=== PATIENT | male | born 1940 | race Caucasian/White ===

== ENCOUNTER 2019-08-24 20:07 | Inpatient (IN) | payer MEDICARE, OTHER, SELFPAY ==
[2019-08-24 20:14] VITALS: BP 104/62; PULSE 104; RESP 20; TEMP 36.8; O2SAT 93; BMI 31.2
--- NOTE | 2019-08-24 20:14 | CTR_ITS ---
PROCEDURE INFORMATION: Exam: CT Head Without Contrast Exam date and time: 08/24/2019 8:19 PM Age: 78 years old Clinical indication: Altered mental status/memory loss; Confusion or disorientation; Patient HX: PT came in new onset AMS TECHNIQUE: Imaging protocol: Computed tomography of the head without contrast. Radiation optimization: All CT scans at this facility use at least one of these dose optimization techniques: automated exposure control; mA and/or kV adjustment per patient size (includes targeted exams where dose is matched to clinical indication); or iterative reconstruction. COMPARISON: CT head wo con* [id number] 02/24/2019 3:18 PM FINDINGS: There is patient motion and streak artifact which degrades image quality. There is mild generalized atrophy. There are mild areas of decreased attenuation in the periventricular white matter which is nonspecific but likely relates to small vessel ischemic change. There is an old right periventricular lacunar infarct. There is an old white matter infarct in the right frontal lobe. There is no evidence for acute infarct. There is no evidence for mass. There is no hemorrhage. There are no extra-axial fluid collections. There is no midline shift. The skull is intact. The visualized paranasal sinuses are well aerated. There is atherosclerotic change of the cavernous carotid arteries. CT/CT head wo con* [id number] IMPRESSION: No evidence for acute infarct, mass or hemorrhage. Radiation Dose CTDIVOL = (mGy): DLP = 736.4 (mGy-cm)
--- NOTE | 2019-08-24 20:14 | XR_ITS ---
WS: [id number] XR chest 1V portable [id number] REASON FOR EXAM: sob FINDINGS: Interposition of the colon between the diaphragm and liver on the right. The heart is not grossly enlarged there is evidence of a Mediport extends from the left side in good position. There is arteriosclerotic changes in the arch of the aorta. There is no pneumonia, pleural effusion, pneumothorax, or mass effect. XR/XR chest 1V portable [id number] IMPRESSION: Arteriosclerotic changes of the arch of the aorta Interposition of the colon between the diaphragm and liver. There is noted marked degenerate changes of the right shoulder.
--- NOTE | 2019-08-24 20:14 | ECG_ITS ---
Measurements Intervals [place] Rate: 105 P: OK: 0 QRS: -26 QRSD: 113 T: 57 QT: 372 QTc: 492 ATRIAL FLUTTER/TACHYCARDIA WITH RAPID VENTRICULAR RESPONSE INFERIOR MYOCARDIAL INFARCTION , PROBABLY OLD [40+ ms Q WAVE AND/OR ST/T ABNORMALITY IN II/aVF] Compared to ECG 02/24/2019 15:48:29 Myocardial infarct finding now present Sinus tachycardia no longer present First degree AV block no longer present Intraventricular conduction delay no longer present T-wave abnormality no longer present Electronically Signed On 08-25-2019 19:36:32 CDT by Yamilex Jurado M.D. [email or web address]
--- NOTE | 2019-08-24 20:21 | W.ED.AMS ---
HPI - Altered Mental Status General: Chief Complaint: Altered Mental Status Stated Complaint: AMS Time Seen by Provider: 08/24/19 20:08 Source: patient and EMS Mode of arrival: EMS Limitations: altered mental status History of Present Illness: HPI narrative: 78-year-old male brought in by EMS for altered mental status. Patient has a history of COPD per EMS when they row he was in distress and saturation was 75. He is currently on 5L. Patient given breathing treatment in route and has improved mentation. Patient will wake down he does tell me he has a history of COPD. Patient is lethargic. He denies any fever or headache. He states he has had a slight cough. MD complaint: altered mental status Onset (ago): hour(s) Timing confirmed by: family member Severity: moderate Associated symptoms: Deny depression Review of Systems Const: Denies: fever(s), chills, body aches or change in appetite Eyes: Denies: blurry vision or eye discomfort ENMT: Denies: throat pain or dental pain Card: Denies: chest pain Resp: Reports: productive cough GI: Denies: abdominal pain, nausea, vomiting or diarrhea : Denies: dysuria Musc: Denies: neck pain or back pain Skin/Breast: Denies: rash Neuro: Reports: confusion Psych: Denies: depression Nura/Lymph: Denies: easy bruising All/Imm: Denies: urticaria PFSH ED PFSH: Social History Smoking and tobacco status: former smoker Physical Exam Const: COMMON NORMALS: patient oriented x3 GENERAL APPEARANCE: in distress, lethargic and ill appearing ORIENTATION/CONSCIOUSNESS: Yes lethargic HENMT: COMMON NORMALS: normocephalic and atraumatic HEAD & SCALP: normocephalic and atraumatic Eye: COMMON NORMALS: Equal, round and reactive pupils present and EOMs intact bilaterally PUPIL: Yes Equal, round and reactive pupils present Neck/C-Spine: COMMON NORMALS: full ROM and supple Chest: COMMONS NORMALS: normal inspection of the chest and normal palpation of entire chest wall Resp: EFFORT & INSPECTION: Yes respiratory distress AUSCULTATION: wheezes Cardio: COMMON NORMALS: regular rate, regular rhythm and No murmurs present (Cardio) RATE: regular rate RHYTHM: regular rhythm GI: COMMON NORMALS: Normal to inspection, nondistended, normoactive bowel sounds present, Soft to palpation, non-tender and no masses PALPATION: Yes Soft to palpation Extremity: COMMON NORMALS: normal to inspection and full ROM Neuro: COMMON NORMALS: patient oriented x3, moves all extremities and no focal motor deficits SENSORIUM/ORIENTATION: Yes lethargic Psych: COMMON NORMALS: mental status grossly normal, Normal thought process present and cooperative THOUGHT PROCESS: Normal thought process present Skin: COMMON NORMALS: no rashes or lesions noted and no wounds GENERAL SKIN EXAM: no rashes or lesions noted Course Vital Signs: Vital signs: Vital Signs Temperature 98.2 F 08/24/19 20:14 Pulse Rate 103 H 08/24/19 20:55 Respiratory Rate 22 H 08/24/19 20:55 Blood Pressure 104/62 08/24/19 20:14 Pulse Oximetry 99 08/24/19 20:55 MDM - Altered Mental Status MDM Narrative: Medical decision making narrative: Patient presents here with altered status likely due to hypoxia. Patient has COPD exacerbation along with pneumonia. Patient after speaking to is on oxygen at home just as needed. Patient is currently requiring 5 L. Patient given breathing treatments along with steroids and antibiotics. I spoke to hospitalist will admit. Lab Data: Labs: Lab Results 08/24/19 08/24/19 08/24/19 Range/Units 20:53 20:53 20:53 WBC 10.3 H (4.0-10.0) 10^3/ uL RBC 3.50 L (4.1-5.3) 10^6/u L Hgb 11.1 L (11.7-16.6) g/dL Hct 35.5 L (42.0-52.0) % MCV 101.4 H (80-94) fL MCH 31.7 (28.0-34.0) pg MCHC 31.3 (30.0-36.0) g/dL RDW 13.2 (12.1-15.1) % Plt Count 193 (130-400) 10^3/c mm MPV 9.6 (7.4-10.4) fL Neut % (Auto) 59.8 % Lymph % (Auto) 24.1 % Wheeler % (Auto) 9.1 % Eos % (Auto) 5.8 % Baso % (Auto) 1.0 % Neut # (Auto) 6.2 (1.8-7.7) 10^3/u L Lymph # (Auto) 2.5 (0.8-4.8) 10^3/u L Wheeler # (Auto) 0.9 (0.2-0.9) 10^3/u L Eos # (Auto) 0.6 (0.0-0.8) 10^3/u L Baso # (Auto) 0.1 (0.0-0.1) 10^3/u L Nucleated RBC % (a uto) 0 % Nucleated RBCs # 0.0 /100WBC Specimen Type Sample Site ABG pH (7.35-7.45) ABG pCO2 (35-45) mmHg ABG pO2 (80.0-100.0) mmH g ABG HCO3 (22-26) mmol/L ABG Base Excess (-2.0-2.0) mmol/ L Liu Test Hematocrit (42-52) % Hgb O2 Saturation (95-100) % Carboxyhemoglobin (0.4-20.1) %THgb Methemoglobin (0.4-1.5) % Total Hemoglobin (14-18) g/dL O2 Delivery Device O2 Liters/Min % [employer] Associate ID Sodium 134 L (136-145) mmol/L Potassium 4.6 (3.5-5.1) mmol/L Chloride 100 (98-107) mmol/L Carbon Dioxide 27 (22-29) mmol/L Anion Gap 11.6 (5-19) BUN 21 (8-23) mg/dL Creatinine 1.0 (0.7-1.2) mg/dL Glucose 132 H (65-115) mg/dL Calculated Osmolal ity 276 L (285-295) mOsm/k g Calcium 8.7 (8.5-10.5) mg/dL Total Bilirubin 0.2 (0.15-1.2) mg/dL AST 12 (0-40) U/L ALT < 5 (0-41) U/L Alkaline Phosphata se 65 (40-130) IU/L Troponin T Baselin e 66 H (0-15) ng/mL NT-Pro-B Natriuret Pep 1369 H (0-450) pg/mL Total Protein 6.2 L (6.6-8.7) g/dL Albumin 3.7 (3.5-5.2) g/dL Globulin 2.5 (1.3-4.6) g/dL 08/24/19 Range/Units 20:55 WBC (4.0-10.0) 10^3/ uL RBC (4.1-5.3) 10^6/u L Hgb (11.7-16.6) g/dL Hct (42.0-52.0) % MCV (80-94) fL MCH (28.0-34.0) pg MCHC (30.0-36.0) g/dL RDW (12.1-15.1) % Plt Count (130-400) 10^3/c mm MPV (7.4-10.4) fL Neut % (Auto) % Lymph % (Auto) % Wheeler % (Auto) % Eos % (Auto) % Baso % (Auto) % Neut # (Auto) (1.8-7.7) 10^3/u L Lymph # (Auto) (0.8-4.8) 10^3/u L Wheeler # (Auto) (0.2-0.9) 10^3/u L Eos # (Auto) (0.0-0.8) 10^3/u L Baso # (Auto) (0.0-0.1) 10^3/u L Nucleated RBC % (a uto) % Nucleated RBCs # /100WBC Specimen Type Arterial Sample Site Radial, right ABG pH 7.36 (7.35-7.45) ABG pCO2 47.1 H (35-45) mmHg ABG pO2 105.0 H (80.0-100.0) mmH g ABG HCO3 26.8 H (22-26) mmol/L ABG Base Excess 1.0 (-2.0-2.0) mmol/ L Liu Test Pos Hematocrit 35.7 L (42-52) % Hgb O2 Saturation 96.5 (95-100) % Carboxyhemoglobin 1.5 (0.4-20.1) %THgb Methemoglobin 0.7 (0.4-1.5) % Total Hemoglobin 11.7 L (14-18) g/dL O2 Delivery Device Nc O2 Liters/Min 5.0 % [employer] Associate ID [email or web address] Sodium (136-145) mmol/L Potassium (3.5-5.1) mmol/L Chloride (98-107) mmol/L Carbon Dioxide (22-29) mmol/L Anion Gap (5-19) BUN (8-23) mg/dL Creatinine (0.7-1.2) mg/dL Glucose (65-115) mg/dL Calculated Osmolal ity (285-295) mOsm/k g Calcium (8.5-10.5) mg/dL Total Bilirubin (0.15-1.2) mg/dL AST (0-40) U/L ALT (0-41) U/L Alkaline Phosphata se (40-130) IU/L Troponin T Baselin e (0-15) ng/mL NT-Pro-B Natriuret Pep (0-450) pg/mL Total Protein (6.6-8.7) g/dL Albumin (3.5-5.2) g/dL Globulin (1.3-4.6) g/dL Imaging Data^: CT Head: Attestation: I personally reviewed and interpreted this imaging study as follows: My impression: [address] [address] [address] Scan Report Signed Patient: Salas Oneal Unit #: [id number] : 1940 Age/Sex: 78 / M ADM Date: 08/24/19 Loc: ER Room/Bed: Attending Dr: Ordering Provider/Ordering MD: Sarwat Snowden MD Date of Service: 08/24/19 Procedure(s): CT head wo con* [id number] Accession Number(s): [id number] Report Number: [id number] PROCEDURE INFORMATION: Exam: CT Head Without Contrast Exam date and time: 08/24/2019 8:19 PM Age: 78 years old Clinical indication: Altered mental status/memory loss; Confusion or disorientation; Patient HX: PT came in new onset AMS TECHNIQUE: Imaging protocol: Computed tomography of the head without contrast. Radiation optimization: All CT scans at this facility use at least one of these dose optimization techniques: automated exposure control; mA and/or kV adjustment per patient size (includes targeted exams where dose is matched to clinical indication); or iterative reconstruction. COMPARISON: CT head wo con* [id number] 02/24/2019 3:18 PM FINDINGS: There is patient motion and streak artifact which degrades image quality. There is mild generalized atrophy. There are mild areas of decreased attenuation in the periventricular white matter which is nonspecific but likely relates to small vessel ischemic change. There is an old right periventricular lacunar infarct. There is an old white matter infarct in the right frontal lobe. There is no evidence for acute infarct. There is no evidence for mass. There is no hemorrhage. There are no extra-axial fluid collections. There is no midline shift. The skull is intact. The visualized paranasal sinuses are well aerated. There is atherosclerotic change of the cavernous carotid arteries. CT/CT head wo con* [id number] IMPRESSION: No evidence for acute infarct, mass or hemorrhage. CXR: My impression: Left lower lobe pneumonia EKG Data^: EKG 1: Attestation: I personally reviewed and interpreted this EKG as follows: EKG interpretation date: 08/24/19 EKG interpretation time: 20:28 Interpretation: atrial flutter hr [address] or t wavea bnormalities qrs 113 qtc 433 Discharge Plan Discharge Patient Disposition: Admitted As Inpatient Clinical Impression: Acute exacerbation of chronic obstructive pulmonary disease Altered mental status Qualifiers: Altered mental status type: unspecified Qualified Code(s): R41.82 - Altered mental status, unspecified Pneumonia Qualifiers: Pneumonia type: due to unspecified organism Laterality: unspecified laterality Lung location: unspecified part of lung Qualified Code(s): J18.9 - Pneumonia, unspecified organism Condition: Stable Referrals: Janis Prakash DO [Primary Care Provider] - Coding Level of Care Code ED Director Agricultural Services for g Fwd Exam Comprehensive
[2019-08-24] MEDS: cefTRIAXone 1,000 MG in sodium chloride 0.9% (plus) 50 ML 100 MG IV (20:47)
[2019-08-24] MEDS: ipratropium-albuterol 3 mL Neb INHALATION (20:53)
[2019-08-24 20:55] VITALS: PULSE 103; RESP 22; O2SAT 99
[2019-08-24 21:03] LABS: ABG PCO2 47.1 mmHg (35-45); ABG PH Result 7.36 (7.35-7.45); Arterial Blood Gas Hematocrit 35.7 % (42-52); Blood Gas Allen Test Pos; Blood Gas Sample Site Radial, right; Blood Gas Sample Type Arterial; Carboxyhemoglobin 1.5 %THgb (0.4-20.1); HCO3 ABG 26.8 mmol/L (22-26); HGB O2 Sat 96.5 % (95-100); Methemoglobin 0.7 % (0.4-1.5); Oxygen Device NC; Total Hemoglobin 11.7 g/dL (14-18)
[2019-08-24 21:06] LABS: Basophils # 0.1 10^3/uL (0.0-0.1); Eosinophils # 0.6 10^3/uL (0.0-0.8); Eosinophils % 5.8 %; Hematocrit 35.5 % (42.0-52.0); Hemoglobin 11.1 g/dL (11.7-16.6); Lymphocytes # 2.5 10^3/uL (0.8-4.8); Lymphocytes % 24.1 %; Mean Corpuscular HGB Conc 31.3 g/dL (30.0-36.0); Mean Corpuscular Hemoglobin 31.7 pg (28.0-34.0); Mean Corpuscular Volume 101.4 fL (80-94); Mean Platelet Volume 9.6 fL (7.4-10.4); Monocytes # 0.9 10^3/uL (0.2-0.9); Monocytes % 9.1 %; Neutrophils # 6.2 10^3/uL (1.8-7.7); Neutrophils % 59.8 %; Nucleated Red Blood Cells % 0 %; Platelet Count 193 10^3/cmm (130-400); Red Cell Distribution Width 13.2 % (12.1-15.1); White Blood Count 10.3 10^3/uL (4.0-10.0)
[2019-08-24] MEDS: azithromycin 500 MG in sodium chloride 0.9% 250 ML 250 MG IV (21:15)
[2019-08-24 21:36] LABS: Troponin(5th) Baseline 66 ng/mL (0-15)
[2019-08-24 21:46] LABS: Alanine Aminotransferase < 5 U/L (0-41); Albumin Level 3.7 g/dL (3.5-5.2); Alkaline Phosphatase 65 IU/L (40-130); Anion Gap 11.6 (5-19); Aspartate Amino Transferase 12 U/L (0-40); Blood Urea Nitrogen 21 mg/dL (8-23); Calcium 8.7 mg/dL (8.5-10.5); Carbon Dioxide 27 mmol/L (22-29); Chloride 100 mmol/L (98-107); Globulin 2.5 g/dL (1.3-4.6); Glucose 132 mg/dL (65-115); NT Pro B Type Natriuretic Pept 1369 pg/mL (0-450); Osmolality Calculated 276 mOsm/kg (285-295); Potassium 4.6 mmol/L (3.5-5.1); Sodium 134 mmol/L (136-145); Total Bilirubin 0.2 mg/dL (0.15-1.2); Total Protein 6.2 g/dL (6.6-8.7)
--- NOTE | 2019-08-24 22:14 | ECG_ITS ---
Measurements Intervals [place] Rate: 101 P: AR: 0 QRS: -1 QRSD: 114 T: 74 QT: 379 QTc: 493 SINUS RYTHM MODERATE INTRAVENTRICULAR CONDUCTION DELAY [110+ ms QRS DURATION] ABNORMAL RHYTHM ECG Compared to ECG 02/24/2019 15:48:29 NO SIG CHANGE Electronically Signed On 08-25-2019 19:41:40 CDT by Yamilex Jurado M.D. [email or web address]
--- NOTE | 2019-08-24 22:20 | PM.HP ---
Providers/Chief Complaint Admitting Physician: Yamilex Washburn MD Primary Care Provider: Janis Prakash DO Chief Complaint: AMS History of Present Illness Salas Oneal is a 78 year old male who carries diagnosis of Parkinson's disease, paroxysmal atrial fibrillation, not on anticoagulation due to hematuria, prostate cancer status post chemotherapy was brought in by EMS for chief complaint of confusion and hypoxia. Patient himself is not sure why he was sent to the hospital at the time of my interview, he is able to tell me that at baseline he uses walker for ambulation, he has not experienced any recent falls, he has been using 4 to 5 L of oxygen [id number], he has not noticed any fever, shortness of breath, chest pain, nausea, vomiting or diarrhea. His noticed that he was confused at home and that is why EMS was called, at the time evaluation he was saturating 70% on 6 L, after improvement in oxygenation he became more alert and was able to give me above-mentioned details. He denies any signs of UTI, recent sick contacts, recent traveling or exposure to COVID suspects. He is worried about his Parkinson's because of his difficulty to eat without spilling the food. Diagnostics in the ER revealed left lower lobe pneumonia, CHF exacerbation Hypoxic respiratory failure requiring 5 L oxygen nasal cannula BNP at 1369 Chest x-ray revealing left lower lobe pneumonia He is chest pain-free, awake alert oriented x3 Review of Systems Const: Reports: body aches, change in appetite, fatigue and change in sleep pattern; Denies: fever(s) or chills Eyes: Denies: change in vision ENMT: Denies: throat pain Card: Reports: dyspnea on exertion; Denies: chest pain, swelling of feet/ankles or orthopnea Resp: Reports: dyspnea; Denies: non-productive cough GI: Denies: abdominal pain or nausea : Denies: flank pain Musc: Reports: other (Rigidity resting tremors); Denies: neck pain Skin/Breast: Denies: rash Neuro: Denies: headache(s) Psych: Denies: anxiety Endo: Denies: polyuria Nura/Lymph: Denies: easy bruising All/Imm: Denies: urticaria Medications/Allergies Allergies Allergy/AdvReac Type Severity Reaction Status Date / Time atorvastatin [From Lipitor] Allergy Unknown Verified 08/24/19 20:13 enzalutamide [From Xtandi] Allergy Unknown Verified 08/24/19 20:13 levofloxacin [From Levaquin] Allergy Unknown Verified 08/24/19 20:13 oxybutynin Allergy Unknown Verified 08/24/19 20:13 simvastatin Allergy Unknown Verified 08/24/19 20:13 Sulfa (Sulfonamide Allergy Unknown Verified 08/24/19 20:13 Antibiotics) PFSH Acute PFSH: Medical History (Updated 08/24/19 @ 23:43 by Yamilex Washburn MD) A-fib Not on anticoagulation due to anemia and hematuria BPH (benign prostatic hyperplasia) CKD (chronic kidney disease) COPD (chronic obstructive pulmonary disease) 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 Coronary artery disease Diastolic heart failure Encephalomalacia Right frontal lobe GERD (gastroesophageal reflux disease) Hypothyroidism Parkinson's disease Prostate cancer Recurrent UTI Surgical History S/P cholecystectomy Family History Other Hypertension Social History Smoking and tobacco status: former smoker Alcohol intake: never Substance/Drug Use: never Household members: spouse Housing: House Vitals/I&O/Wt Last Vital Signs Temp 98.2 F 08/24/19 20:14 Pulse 103 H 08/24/19 20:55 Resp 22 H 08/24/19 20:55 BP 104/62 08/24/19 20:14 Pulse Ox 99 08/24/19 20:55 08/24/19 08/24/19 08/24/19 06:59 14:59 22:59 Intake Total 50 / 50 Balance 50 / 50 Weight last 48 hrs Weight 101.605 kg Physical Exam Narrative: EXAM NARRATIVE: Head to toe examination Patient was laying in semi-mast position without any active respiratory distress Saturating well on 5 L nasal cannula Heart rate 98-1 01 Variable S1-S2, active signs of heart failure with trace lower extremity edema 1+ bilaterally No active respiratory distress, however mild expiratory wheezing/cardiac wheezing noted at the bases Positive JVD Awake alert oriented x3 Resting tremors Cogwheel rigidity Abdomen soft nontender nondistended bowel sound present Patient is not confused at all at the time of my evaluation No suprapubic tenderness Data : 08/24/19 20:53 08/24/19 20:53 Micro: Microbiology 08/24/19 20:54 Blood Culture - Preliminary Blood SPECIMEN COLLECTED 08/24/19 20:53 Blood Culture - Preliminary Blood SPECIMEN COLLECTED A&P Assessment and plan (1) Community acquired pneumonia: Status: Acute (2) Altered mental status: Status: Acute Qualifiers: Altered mental status type: unspecified Qualified Code(s): R41.82 - Altered mental status, unspecified (3) Acute on chronic respiratory failure with hypoxemia: Status: Acute (4) CHF exacerbation: Status: Acute (5) DNR (do not resuscitate): Status: Acute (6) Parkinson's disease: Status: Acute Additional A&P Information Acute on chronic hypoxic respiratory failure due to community-acquired pneumonia No active respiratory distress, pneumonia severity index class IV No active encephalopathy Ceftriaxone azithromycin, urine antigens to be obtained Low risk for COVID Altered mental status hypoxic respiratory failure Mentation improved Currently saturating well on 5 L nasal cannula (this is his baseline requirement) Will obtain d-dimer Preserved ejection fraction heart failure exacerbation with grade 2 diastolic dysfunction Patient is showing mild signs of fluid overload I would use 40 mg of Lasix Echo also reveals moderate pulmonary hypertension Paroxysmal A. fib Heart rate ranging between 95-1 01 Would use low-dose AV [place] blocking agent beta-hina Not a candidate of anticoagulation because of previous history of hematuria and anemia however current hemoglobin seems to be stable Might need to readdress initiation of anticoagulation as his hematuria and anemia has improved Parkinson's disease Takes Sinemet twice a day No active exacerbation DNR/DNI Cardiac diet DVT prophylaxis Lovenox Attestations Medical Necessity Statement*: Anticipating stay in the hospital cross more than 2 midnights currently need antibiotics for community-acquired pneumonia and medication adjustment for congestive heart failure exacerbation Coding Level of Care Code Acute [employer] Pathology Teacher for Chg Fwd Diagnoses Community acquired pneumonia J18.9 Altered mental status R41.82 Altered mental status type: unspecified Acute on chronic respiratory failure with hypoxemia J96.21 CHF exacerbation I50.9 DNR (do not resuscitate) Z66 Parkinson's disease G20
[2019-08-24 22:45] LABS: Troponin 5 2HR 65.25 ng/mL (0-15)
[2019-08-24 22:47] LABS: Troponin 5 2HR Delta -0.75 ABS# (0-10)
[2019-08-24 23:23] VITALS: BP 108/64; PULSE 74; RESP 18; O2SAT 95
--- NOTE | 2019-08-24 23:27 | PC.NURSE ---
i agree with this assessment
[2019-08-25] VITALS (9 sets, daily range): BP systolic 146–192; BP diastolic 80–126; PULSE 97–111; RESP 16–22; TEMP 36.4–37.2; O2SAT 96–99
[2019-08-25 00:13] LABS: D Dimer 0.48 ug/mIFEU (0-0.59)
[2019-08-25 02:10] LABS: Basophils % 0.5 %; Eosinophils % 0.5 %; Hematocrit 41.3 % (42.0-52.0); Hemoglobin 12.6 g/dL (11.7-16.6); Lymphocytes # 1.1 10^3/uL (0.8-4.8); Lymphocytes % 13.8 %; Mean Corpuscular HGB Conc 30.5 g/dL (30.0-36.0); Mean Corpuscular Hemoglobin 31.3 pg (28.0-34.0); Mean Corpuscular Volume 102.7 fL (80-94); Monocytes # 0.2 10^3/uL (0.2-0.9); Neutrophils # 6.7 10^3/uL (1.8-7.7); Nucleated Red Blood Cells % 0 %; Platelet Count 208 10^3/cmm (130-400); Red Blood Count 4.02 10^6/uL (4.1-5.3); Red Cell Distribution Width 13.2 % (12.1-15.1); White Blood Count 8.1 10^3/uL (4.0-10.0)
[2019-08-25 02:24] LABS: Anion Gap 15.8 (5-19); Blood Urea Nitrogen 20 mg/dL (8-23); Calcium 8.9 mg/dL (8.5-10.5); Carbon Dioxide 26 mmol/L (22-29); Chloride 97 mmol/L (98-107); Glucose 183 mg/dL (65-115); Osmolality Calculated 279 mOsm/kg (285-295); Potassium 4.8 mmol/L (3.5-5.1); Sodium 134 mmol/L (136-145)
[2019-08-25 02:27] LABS: Troponin 5 6HR 55.73 ng/mL (0-15)
[2019-08-25] MEDS: FUROsemide 40 mg Tablet PO (07:50)
[2019-08-25] MEDS: enoxaparin 40 mg/0.4 mL Syringe SUBCUT (07:50)
[2019-08-25] MEDS: metoprolol tartrate 25 mg Tablet 12.5 MG PO (07:51)
[2019-08-25] MEDS: aspirin 81 mg EC Tablet PO (07:51)
[2019-08-25] MEDS: tamsulosin 0.4 mg Capsule PO (07:51)
[2019-08-25] MEDS: azithromycin 250 mg Tablet 500 MG PO (07:51)
[2019-08-25] MEDS: cefTRIAXone 1,000 MG in sodium chloride 0.9% (plus) 50 ML 100 MG IV (07:52)
[2019-08-25] MEDS: carbidopa-levodopa ER 50-200mg Tablet 1 EACH PO ×2 (07:56→18:06)
[2019-08-25] MEDS: ipratropium-albuterol 3 mL Neb INHALATION (08:10)
--- NOTE | 2019-08-25 10:50 | CT_ITS ---
WS: [id number] CT chest wo con [id number] REASON FOR EXAM: copd/pna IV CONTRAST ADMINISTERED: A shunt tube is seen along the left side extends into the subclavian TOTAL EXAM DLP: 520.[address] scans at [facility] use at least one of these dose optimization techniques: automat ed exposure control; mA and/or kV adjustment per patient size (includes targeted exams where dose is matched to clinical indication); or iterative reconstruction. FINDINGS: Shunt tube is seen along the left anterior chest wall extends into the subclavian vein. Enl arging mass defect is seen adjacent to the scapula and axilla on the left. This appears to be an enla rged lymph node. This changes were not noted on the previous exam of 02/08/2018. Degenerate changes along the clavicular articulations with the sternum bilaterally. There is heavy arteriosclerotic changes of the vasculature in the chest including the aorta which david ws heavy calcification along the arch and descending aorta. There is no aneurysms of the aorta seen There is calcification in the coronary arteries. A previous exam is prominent right pleural effusion this is completely cleared there is mild scarring in the right lung base. The liver was normal. The adrenal glands were both normal in size no masses. The peripheral lungs shows some scarring and fibrosis but no masses or pneumonia. The right shoulder shows degenerate changes the findings are similar to the previous exam. A small ly mph node in the aortic window on the left is again seen CT/CT chest wo con [id number] IMPRESSION: A mass defect is seen in the left axilla not observed on previous exam 02/09/20 18. The benign lymphadenopathy in the mediastinum is again noted. Coronary artery disease. Chronic obstructive pulmonary disease findings again seen. Heavy arteriosclerotic changes in the aorta. But no aneurysms noted.
--- NOTE | 2019-08-25 10:52 | P.PN_ITS ---
Subjective Subjective: Interval history: Admitted overnight. H&P and labs noted. Took most of the history again today morning through . According to her patient has been complaining of extreme pain in his neck and his head from many weeks to a month for which he recently received a Botox inj ection to his neck from a doctor at [facility] on . From Saturday patient started having runny nose and cough along with difficulty in breathing. Patient has been having subjective fever fever but did not have any real fevers at home. Denies of having any chills. Patient has not traveled anywhere outside other than going to the doctor's appointment. Patient's neighbor usually coming home to take care of him and they recently had a who had strep infection. On examination patient is lying comfortably in bed. He is confused why is in the hospital. He does not remember being confused or hypoxic at home. He denies of having any nausea, vomiting, chest pain, palpitations right now does complain of cough but without any expectoration. Vitals/I&O/Wt Last Vital Signs Temp 98.3 F 08/25/19 07:20 Pulse 107 H 08/25/19 08:14 Resp 16 08/25/19 08:14 BP 192/122 08/25/19 07:20 Pulse Ox 98 08/25/19 08:14 08/24/19 08/25/19 08/25/19 22:59 06:59 14:59 Intake Total 50 / 50 Output Total 200 / 200 1250 / 1250 Balance 50 / 50 -200 / -150 -1250 / -1250 Weight last 48 hrs Weight 101.605 kg Physical Exam Narrative: EXAM NARRATIVE: General: No acute distress, AO x3 HEENT: PERRLA, pupils bilaterally equal and reactive Chest: Normal vesicular breath sounds, bronchial breath sounds left lower and middle zone, occasional rhonchi CVS: S1-S2 regular, no murmurs, no tachycardia, no gallops, no rubs Abdomen: Soft, nontender, no organomegaly, bowel sounds present Neuro: No focal deficits, no facial deformity, AO x3, power 5/5 in all limbs Data : 08/25/19 02:05 08/25/19 02:05 Micro: Microbiology 08/24/19 20:54 Blood Culture - Preliminary Blood SPECIMEN COLLECTED 08/24/19 20:53 Blood Culture - Preliminary Blood SPECIMEN COLLECTED A&P Assessment and plan (1) Acute on chronic respiratory failure with hypoxemia: Status: Acute (2) Community acquired pneumonia: Status: Acute (3) CHF exacerbation: Status: Acute (4) Diastolic heart failure: Status: Acute (5) A-fib: Status: Acute (6) COPD (chronic obstructive pulmonary disease): Status: Acute (7) DNR (do not resuscitate): Status: Acute (8) Parkinson's disease: Status: Acute (9) Altered mental status: Status: Acute Qualifiers: Altered mental status type: unspecified Qualified Code(s): R41.82 - Altered mental status, unspecified (10) COVID-19 ruled out: Status: Acute Additional A&P Information Acute on chronic hypoxic respiratory failure: Most likely because of committee acquired pneumonia: Patient has a new infiltrate on the left middle and lower zone. Urine Legionella, bacterial antigen awaited. We will check for sputum culture and Gram stain. Because of subjective feel of fevers, runny nose, cough, exposure to a medical environment at [facility] where there are multiple cases in last 1 week for COVID-19 will check. Isolation precaution. Check LDH, MRSA PCR. CT chest without contrast For now we will continue with ceftriaxone and azithromycin. Day 2 of treatment. Oxygen supplementation keeping saturation over 90%. At home patient takes 5 L nasal cannula. DuoNebs every 6 hours scheduled and budesonide twice daily. Altered mental status: Most likely because of hypoxia. Resolved at present. Hypertensive urgency: Patient's blood pressure today morning severely elevated. We will start patient on home dose of blood pressure medications. Patient's stated that his blood pressures are being checked regularly at home. Most of the numbers are below 140/80 mmHg. Patient has had at least 8-10 numbers in last 1 week below 110 systolic. We will start patient on home dose of metoprolol 50 mg twice daily, decrease dose of hydralazine to 25 mg 3 times daily. We will continue to monitor blood pressures. Last echocardiogram from January 2018 shows of EF of 72% with grade 2 diastolic dysfunction with moderately increased left atrial size, moderate MR, mild TR. Diastolic heart failure: proBNP elevated. Continue with oral Lasix 40 mg daily for now. Strict input output charting. Daily weights. Paroxysmal A. fib: Mildly tachycardic with heart rate going up to 110. We will restart his home medication of metoprolol. We will continue to monitor. Not a candidate of anticoagulation because of previous history of hematuria and anemia however current hemoglobin seems to be stable Might need to readdress initiation of anticoagulation as his hematuria and anemia has improved Parkinson's disease: Takes Sinemet twice a day No active exacerbation DNR/DNI Cardiac diet DVT prophylaxis Lovenox Attestations Medical Necessity Statement*: Community-acquired pneumonia, paroxysmal A. fib, uncontrolled hypertension Time Spent in Patient Care: Greater than 35 minutes (>than 50% of time spent in counselling and/or direct pt care on unit) . Coding Level of Care Code Acute Set Off Press Operator for Chg Fwd Diagnoses Acute on chronic respiratory failure with hypoxemia J96.21 Community acquired pneumonia J18.9 CHF exacerbation I50.9 Diastolic heart failure I50.30 A-fib I48.91 COPD (chronic obstructive pulmonary disease) J44.9 DNR (do not resuscitate) Z66 Parkinson's disease G20 Altered mental status R41.82 Altered mental status type: unspecified COVID-19 ruled out Z03.818
[2019-08-25] MEDS: pantoprazole DR 40 mg Tablet PO (11:05)
[2019-08-25] MEDS: amiodarone 200 mg Tablet 100 MG PO (11:05)
[2019-08-25] MEDS: oxyCODONE IR 30 mg Tablet 15 MG PO (11:06)
[2019-08-25] MEDS: metoprolol tartrate 50 mg Tablet PO ×2 (11:06→18:06)
--- NOTE | 2019-08-25 11:26 | PC.CHAP ---
Pastoral Care Encounter/Spiritual Assessment Type of Contact [] Declined industrial truck operator visit [] Patient/Family/Request visit [] Outpatient visit [] Follow-up visit [] Physician referral [] Code/Alert [x] Routine visit [] Staff referral [] Actively dying [] Patient sleeping [] Family support [] [] Out of room [] Palliative care [] [x] Receiving care in room [] Pre-surgical visit [] Trauma [] Long length of stay [] ICU visit [] Other: Relational/Emotional Strength [x] Patient feels connected with others/family/visitors/staff [] Distress [] Loneliness/isolation [] Abandonment Spirituality of Patient [x] Person of Katelyn [] Attends Jainism of their Katelyn [x] Believes in Prayer [] Reads Bible or Hinduism materials [] There are Spiritual issues to be addressed Groundskeeping Maintenance Worker Interventions [x] Prayer [x] Active listening [x] Non-anxious presence [x] Spiritual/emotional support [] Crisis/trauma care [x] Spiritual counseling [] Bereavement support [] Provided bereavement packet [] Provided Bible/devotional materials [] Provided toy/stuffed animal, coloring book to patient or family member [] Provided Communion [] Anointing/[place] [] Salvation [x] Completed spiritual assessment [] Other: Impact on Illness or Injury [] Angry [] Fearful [x] Anxious [] Often cries [] Exhaustion [] Unable to work [] Unable to attend lutheran [] Unable to walk/stand [] Unable to read [] Unable to drive [] Unable to eat/drink [] Unable to sleep [] Unable to be with family [] Patient intubated [] Other: Summary WEAKNESS, setting up, feels good, possitive attitude, not sure when he will go home Time spent with patient 10 mins
--- NOTE | 2019-08-25 12:32 | PC.RESP ---
PULMONARY REHAB INFORMATION SENT TO PATIENT.
[2019-08-25 12:37] LABS: Add Urine Culture? No; Bacteria Urine TRACE; Bilirubin Urine Neg (NEGATIVE); Blood Urine Neg (Negative); Glucose Urine UA Norm (Normal); Ketones Urine Negative (Negative); Leukocyte Esterase Urine Negative (Negative); Nitrate Urine Negative (Negative); Protein Urine Neg (Negative); Specific Gravity, Urine 1.005 (1.005-1.030); Squamous Epithelial Cell Urine RARE (0-5); Urine Appearance Clear (CLEAR); Urine Color Colorless (Yellow); Urobilinogen Urine Norm (Negative)
[2019-08-25] MEDS: sucralfate 1 gm Tablet PO ×3 (12:50→21:31)
[2019-08-25 13:39] LABS: Thyroid Stimulating Hormone 0.91 uIU/mL (0.27-4.20)
[2019-08-25] MEDS: hyDRALAzine 50 mg Tablet 25 MG PO ×2 (14:00→21:31)
[2019-08-25 14:18] LABS: Procalcitonin 0.07 ng/mL (0-0.5)
[2019-08-25 14:56] LABS: Vitamin B12 501 pg/mL (232-1245)
[2019-08-25 14:57] LABS: Folate Level 17.5 ng/mL (4.5-32.2)
[2019-08-25] MEDS: ALPRAZolam 0.5 mg Tablet PO (15:44)
[2019-08-25 15:45] LABS: Lactate Dehydrogenase 203 U/L (135-225)
[2019-08-25] MEDS: oxyCODONE IR 30 mg Tablet PO ×2 (16:19→21:30)
[2019-08-25] MEDS: tizanidine 4 mg Tablet 2 MG PO ×2 (16:19→21:31)
[2019-08-25] MEDS: primidone 50 mg Tablet 100 MG PO (21:30)
[2019-08-25] MEDS: citalopram 20 mg Tablet 40 MG PO (21:31)
[2019-08-25] MEDS: acetaminophen 325 mg Tablet 650 MG PO (22:47)
[2019-08-26] VITALS (9 sets, daily range): BP systolic 106–178; BP diastolic 63–105; PULSE 110–120; RESP 16–20; TEMP 36.4–36.8; O2SAT 90–99
[2019-08-26] MEDS: ALPRAZolam 0.5 mg Tablet PO ×2 (03:30→23:38)
[2019-08-26] MEDS: oxyCODONE IR 30 mg Tablet PO ×4 (03:30→22:59)
[2019-08-26 04:59] LABS: Basophils # 0.1 10^3/uL (0.0-0.1); Basophils % 0.8 %; Eosinophils # 0.2 10^3/uL (0.0-0.8); Eosinophils % 2.1 %; Hematocrit 42.1 % (42.0-52.0); Hemoglobin 13.5 g/dL (11.7-16.6); Lymphocytes # 2.4 10^3/uL (0.8-4.8); Lymphocytes % 27.6 %; Mean Corpuscular HGB Conc 32.1 g/dL (30.0-36.0); Mean Corpuscular Hemoglobin 31.5 pg (28.0-34.0); Mean Corpuscular Volume 98.4 fL (80-94); Mean Platelet Volume 9.3 fL (7.4-10.4); Monocytes # 0.8 10^3/uL (0.2-0.9); Monocytes % 9.4 %; Neutrophils # 5.3 10^3/uL (1.8-7.7); Neutrophils % 59.8 %; Nucleated Red Blood Cells % 0 %; Platelet Count 245 10^3/cmm (130-400); Red Blood Count 4.28 10^6/uL (4.1-5.3); Red Cell Distribution Width 13.1 % (12.1-15.1); White Blood Count 8.9 10^3/uL (4.0-10.0)
[2019-08-26 05:16] LABS: Alanine Aminotransferase < 5 U/L (0-41); Albumin Level 4.1 g/dL (3.5-5.2); Alkaline Phosphatase 69 IU/L (40-130); Aspartate Amino Transferase 15 U/L (0-40); Blood Urea Nitrogen 22 mg/dL (8-23); Calcium 10.2 mg/dL (8.5-10.5); Carbon Dioxide 28 mmol/L (22-29); Chloride 93 mmol/L (98-107); Globulin 3.4 g/dL (1.3-4.6); Glucose 133 mg/dL (65-115); Osmolality Calculated 279 mOsm/kg (285-295); Sodium 135 mmol/L (136-145); Total Bilirubin 0.4 mg/dL (0.15-1.2); Total Protein 7.5 g/dL (6.6-8.7)
[2019-08-26] MEDS: ipratropium-albuterol 3 mL Neb INHALATION ×3 (05:39→21:08)
[2019-08-26] MEDS: acetaminophen 325 mg Tablet 650 MG PO ×3 (05:50→19:26)
[2019-08-26] MEDS: budesonide 0.5 mg/2 mL Neb INHALATION ×2 (08:30→21:06)
[2019-08-26] MEDS: hyDRALAzine 50 mg Tablet 25 MG PO ×2 (09:13→15:04)
[2019-08-26] MEDS: FUROsemide 40 mg Tablet PO (09:13)
[2019-08-26] MEDS: azithromycin 250 mg Tablet 500 MG PO (09:14)
[2019-08-26] MEDS: aspirin 81 mg EC Tablet PO (09:14)
[2019-08-26] MEDS: carbidopa-levodopa ER 50-200mg Tablet 1 EACH PO ×2 (09:14→16:57)
[2019-08-26] MEDS: sucralfate 1 gm Tablet PO ×4 (09:14→20:54)
[2019-08-26] MEDS: ascorbic acid 500 mg Tablet PO (09:14)
[2019-08-26] MEDS: metoprolol tartrate 50 mg Tablet PO (09:14)
[2019-08-26] MEDS: pantoprazole DR 40 mg Tablet PO (09:14)
[2019-08-26] MEDS: tizanidine 4 mg Tablet 2 MG PO (09:14)
[2019-08-26] MEDS: tamsulosin 0.4 mg Capsule PO (09:15)
[2019-08-26] MEDS: enoxaparin 40 mg/0.4 mL Syringe SUBCUT (09:15)
[2019-08-26] MEDS: amiodarone 200 mg Tablet 100 MG PO (09:15)
[2019-08-26] MEDS: cefTRIAXone 1,000 MG in sodium chloride 0.9% (plus) 50 ML 100 MG IV (09:45)
--- NOTE | 2019-08-26 10:50 | USCV_ITS ---
Salas Oneal Age: 78 Gender: M : 1940 Exam Date: 08/26/2019 15:47 Ordering Phys: Dionisio Resendiz MD Technologist: Alisa Mcrae Exam Location: [facility] [place] Indication: CHF h/o DD BP: 173 / 98 HR: 114 Rhythm: Sinus Technical Quality: Technically difficult study MEASUREMENTS (Male / Female) Normal Values 2D ECHO LV Diastolic Diameter PLAX 3.0 cm 4.2 - 5.9 / 3.9 - 5.3 cm LV Systolic Diameter PLAX 1.0 cm IVS Diastolic Thickness 0.8 cm 0.6 - 1.0 / 0.6 - 0.9 cm IVS Systolic Thickness 1.3 cm LVPW Diastolic Thickness 1.2 cm 0.6 - 1.0 / 0.6 - 0.9 cm LVPW Systolic Thickness 1.2 cm LV Ejection Fraction 2D Teich 94.2 % LA Width 3.1 cm LA Height 5.8 cm RA Width 2.8 cm RA Height 4.9 cm DOPPLER AV Peak Velocity 143.0 cm/s LVOT Peak Velocity 92.0 cm/s MV Peak Velocity 87.0 cm/s MV Area PHT 5.8 cm squared Mitral E to A Ratio 7.2 MV E' Velocity 2.0 cm/s Mitral E to MV E' Ratio 45.3 Mitral E to LV E' Lateral Ratio 43.3 Mitral E to LV E' Septal Ratio 45.3 TR Peak Velocity 180.0 cm/s TR Peak Gradient 13.0 mmHg Right Atrial Pressure 3.0 mmHg Pulmonary Artery Systolic Pressu 16.0 mmHg FINDINGS Left Ventricle This study is extremely poor in quality and nearly uninterpretable. The apical 2 chamber view is the only view which provide any information. The overall ventricular size is normal. The ejection fraction is impossible to predict but is probably at least lower limit of normal. Diastolic function cannot be determined. Wall motion disturbances cannot be determined. Right Ventricle Normal right ventricular size and systolic function. Right ventricle not well visualized. Right Atrium Right atrium not well visualized. Left Atrium Left atrium not well visualized. Mitral Valve Mitral valve not well visualized. Aortic Valve Aortic valve not well visualized. Tricuspid Valve Tricuspid valve not well visualized. Pulmonic Valve Pulmonic valve not well visualized. Pericardium No pericardial effusion. Aorta Aorta not well visualized. CONCLUSIONS This study is extremely poor in quality and nearly uninterpretable. The apical 2 chamber view is the only view which provide any information. The overall ventricular size is normal. The ejection fraction is impossible to predict but is probably at least lower limit of normal. Diastolic function cannot be determined. Wall motion disturbances cannot be determined. One cannot compared to the previous study due to the poor quality of the current study. Dr. Fabian Horton MD (Electronically Signed) Final Date: 27 August 2019 08:06 S
--- NOTE | 2019-08-26 11:01 | PM.PN ---
Subjective Subjective: Interval history: No acute events overnight. In last 24 hrs his COVID 19 test came back negative. He continues to ask for more pain medications. His saturations are better and state his cough is better. He denies any N/V/D, SOB, chest pain , abdominal pain. Vitals/I&O/Wt Last Vital Signs Temp 98.1 F 08/26/19 10:53 Pulse 112 H 08/26/19 10:53 Resp 18 08/26/19 10:53 BP 113/73 08/26/19 10:53 Pulse Ox 97 08/26/19 10:53 08/25/19 08/26/19 08/26/19 22:59 06:59 14:59 Intake Total 240 / 530 120 / 120 Output Total 720 / 2420 125 / 2545 Balance -480 / -1890 -125 / 120 / 120 Weight last 48 hrs Weight 101.605 kg Physical Exam Narrative: EXAM NARRATIVE: General: No acute distress, AO x3, tremor present HEENT: PERRLA, pupils bilaterally equal and reactive Chest: Normal vesicular breath sounds, bronchial breath sounds left lower and middle zone, occasional rhonchi CVS: S1-S2 regular, no murmurs, no tachycardia, no gallops, no rubs Abdomen: Soft, nontender, no organomegaly, bowel sounds present Neuro: No focal deficits, no facial deformity, AO x3, power 5/5 in all limbs Data : 08/26/19 04:25 08/26/19 04:25 Micro: Microbiology 08/24/19 20:54 Blood Culture - Preliminary Blood NEGATIVE TO DATE 08/24/19 20:53 Blood Culture - Preliminary Blood NEGATIVE TO DATE 08/25/19 11:50 MRSA Culture - Final Nose 08/25/19 11:20 Legionella Urinary Antigen - Final Urine,Voided Bacterial Antigens - Final A&P Assessment and plan (1) Acute on chronic respiratory failure with hypoxemia: Status: Acute (2) Community acquired pneumonia: Status: Acute (3) CHF exacerbation: Status: Acute (4) Diastolic heart failure: Status: Acute (5) A-fib: Status: Acute (6) COPD (chronic obstructive pulmonary disease): Status: Acute (7) Altered mental status: Status: Acute Qualifiers: Altered mental status type: unspecified Qualified Code(s): R41.82 - Altered mental status, unspecified (8) COVID-19 ruled out: Status: Acute (9) Axillary lymphadenopathy: Status: Acute (10) Chronic pain disorder: Status: Acute (11) Chronic prescription opiate use: Status: Acute (12) Parkinson's disease: Status: Acute (13) DNR (do not resuscitate): Status: Acute Additional A&P Information Acute on chronic hypoxic respiratory failure: Most likely because of community acquired pneumonia: Patient has a new infiltrate on the left middle and lower zone. Urine Legionella, bacterial antigen awaited. We will check for sputum culture and Gram stain. COVID 19 ruled out. Remove droplet isolation. MRSA positive. CT chest without contrast appreciated. For now we will continue with ceftriaxone and azithromycin. Day 3 of treatment. Oxygen supplementation keeping saturation over 90%. At home patient takes 5 L nasal cannula. DuoNebs every 6 hours scheduled and budesonide twice daily. If patient continues to do well can plan to discharge tomorrow on oral doxycycline. Before discharge patient would require repeat home oxygen evaluation. I believe patient's hypoxia is more related to over sedation from pain medications. This has been discussed with both patient and his . Chronic pain medications: At home patient is on 30 mg oxycodone 1 to 2 tablets every 4 hours, tizanidine 8 mg every 8 hours. For now given his above presentation we will decrease the dose to 30 mg every 6 hours. Will have to continue pain medications to avoid withdrawal as patient has been using these medications for a long time. Continue tizanidine 4 mg every 8 hours. Lymphadenopathy: New lymphadenopathy seen on the CT scan left axillary region with possible mass-effect. Discussed the above in detail with both patient and his . Also discussed I discussed with the cause of patient's pain. Both patient and would want to follow-up with his oncologist in [place] regarding further work-up. Hypertensive urgency: Blood pressure is better since starting on his home dose of metoprolol 50 mg twice daily and hydralazine 25 mg 3 times a day. I do believe patient's blood pressures were elevated on admission because of withdrawal from pain medication which he did not get overnight. As per patient has been having multiple episodes of hypotension at home. For now we will continue to monitor and current dose. Given chronic tachycardia will increase his metoprolol to 75 mg twice daily. Last echocardiogram from January 2018 shows an EF of 72% with grade 2 diastolic dysfunction with moderately increased left atrial size, moderate TR, mild TR. Diastolic heart failure: proBNP elevated. Continue with oral Lasix 40 mg daily for now. Strict input output charting. Daily weights. Paroxysmal A. fib: Mildly tachycardic with heart rate going up to 110. Increase dose of metoprolol as stated above. We will continue to monitor. Not a candidate of anticoagulation because of previous history of hematuria and anemia however current hemoglobin seems to be stable Might need to readdress initiation of anticoagulation as his hematuria and anemia has improved Parkinson's disease: Takes Sinemet twice a day No active exacerbation DNR/DNI Cardiac diet DVT prophylaxis Lovenox Discussed in detail with that patient symptoms, chronic hypoxia is most likely because of oversedation from chronic pain medications. Also discussed the probable cause of his pain could be the axillary lymphadenopathy which is having mass-effect. Going forward patient wants to follow-up with his oncologist at [place] for work-up of the lymphadenopathy. Also discussed that patient should follow-up with pain management as an outpatient because of chronic pain medication issues and proper weaning of opiates to avoid withdrawal. is agreeable to same and will try to make an appointment with pain clinic as soon as possible. Likely discharge tomorrow morning. Attestations Medical Necessity Statement*: Acute on chronic hypoxic respiratory failure, community-acquired pneumonia Time Spent in Patient Care: Greater than 35 minutes Coding Level of Care Code Acute Preventive Maintenance Engineer for g Fwd Diagnoses Acute on chronic respiratory failure with hypoxemia J96.21 Community acquired pneumonia J18.9 CHF exacerbation I50.9 Diastolic heart failure I50.30 A-fib I48.91 COPD (chronic obstructive pulmonary disease) J44.9 Altered mental status R41.82 Altered mental status type: unspecified COVID-19 ruled out Z03.818 Axillary lymphadenopathy R59.0 Chronic pain disorder G89.4 Chronic prescription opiate use Z79.891 Parkinson's disease G20 DNR (do not resuscitate) Z66
[2019-08-26] MEDS: tizanidine 4 mg Tablet PO ×2 (15:04→20:54)
[2019-08-26] MEDS: metoprolol tartrate 50 mg Tablet 75 MG PO (16:56)
[2019-08-26] MEDS: primidone 50 mg Tablet 100 MG PO (20:53)
[2019-08-26] MEDS: citalopram 20 mg Tablet 40 MG PO (20:54)
[2019-08-27] VITALS (7 sets, daily range): BP systolic 101–160; BP diastolic 69–98; PULSE 112–115; RESP 17–20; TEMP 36.6–36.8; O2SAT 88–96
[2019-08-27] MEDS: oxyCODONE IR 30 mg Tablet PO ×2 (04:26→10:18)
[2019-08-27 05:39] LABS: Basophils # 0.1 10^3/uL (0.0-0.1); Basophils % 0.9 %; Eosinophils # 0.3 10^3/uL (0.0-0.8); Eosinophils % 3.2 %; Hematocrit 41.6 % (42.0-52.0); Hemoglobin 13.5 g/dL (11.7-16.6); Lymphocytes # 3.1 10^3/uL (0.8-4.8); Lymphocytes % 32.2 %; Mean Corpuscular HGB Conc 32.5 g/dL (30.0-36.0); Mean Corpuscular Hemoglobin 31.6 pg (28.0-34.0); Mean Corpuscular Volume 97.4 fL (80-94); Mean Platelet Volume 9.3 fL (7.4-10.4); Monocytes % 10.2 %; Neutrophils # 5.1 10^3/uL (1.8-7.7); Neutrophils % 53.2 %; Nucleated Red Blood Cells % 0 %; Platelet Count 242 10^3/cmm (130-400); Red Blood Count 4.27 10^6/uL (4.1-5.3); White Blood Count 9.6 10^3/uL (4.0-10.0)
[2019-08-27 05:52] LABS: Alanine Aminotransferase 7 U/L (0-41); Albumin Level 4.2 g/dL (3.5-5.2); Alkaline Phosphatase 64 IU/L (40-130); Anion Gap 17.3 (5-19); Blood Urea Nitrogen 26 mg/dL (8-23); Calcium 9.7 mg/dL (8.5-10.5); Carbon Dioxide 26 mmol/L (22-29); Chloride 93 mmol/L (98-107); Globulin 2.7 g/dL (1.3-4.6); Glucose 129 mg/dL (65-115); Osmolality Calculated 273 mOsm/kg (285-295); Potassium 4.3 mmol/L (3.5-5.1); Sodium 132 mmol/L (136-145); Total Bilirubin 0.4 mg/dL (0.15-1.2); Total Protein 6.9 g/dL (6.6-8.7)
[2019-08-27 06:13] LABS: Aspartate Amino Transferase 19 U/L (0-40)
[2019-08-27] MEDS: acetaminophen 325 mg Tablet 650 MG PO ×2 (06:22→10:19)
[2019-08-27] MEDS: budesonide 0.5 mg/2 mL Neb INHALATION (08:20)
[2019-08-27] MEDS: ipratropium-albuterol 3 mL Neb INHALATION ×2 (08:20→08:22)
[2019-08-27] MEDS: metoprolol tartrate 50 mg Tablet 75 MG PO (08:37)
[2019-08-27] MEDS: ascorbic acid 500 mg Tablet PO (08:37)
[2019-08-27] MEDS: hyDRALAzine 50 mg Tablet 25 MG PO (08:37)
[2019-08-27] MEDS: pantoprazole DR 40 mg Tablet PO (08:37)
[2019-08-27] MEDS: tamsulosin 0.4 mg Capsule PO (08:38)
[2019-08-27] MEDS: FUROsemide 40 mg Tablet PO (08:38)
[2019-08-27] MEDS: carbidopa-levodopa ER 50-200mg Tablet 1 EACH PO (08:38)
[2019-08-27] MEDS: amiodarone 200 mg Tablet 100 MG PO (08:38)
[2019-08-27] MEDS: tizanidine 4 mg Tablet PO (08:38)
[2019-08-27] MEDS: sucralfate 1 gm Tablet PO ×2 (08:38→12:00)
[2019-08-27] MEDS: aspirin 81 mg EC Tablet PO (08:39)
[2019-08-27] MEDS: cefTRIAXone 1,000 MG in sodium chloride 0.9% (plus) 50 ML 100 MG IV (08:42)
[2019-08-27] MEDS: enoxaparin 40 mg/0.4 mL Syringe SUBCUT (08:46)
--- NOTE | 2019-08-27 10:15 | PC.SOCIAL ---
IMM Page 2 of IMM explained to patient. Initialed, dated, and timed placed in chart.
--- NOTE | 2019-08-27 12:02 | PM.DCS ---
Discharge Providers Date of Admission: 08/24/19 22:01 Date of Discharge: August 27, 2019 Attending Provider at Admission: Yamilex Washburn MD Attending Provider at Discharge: Dionisio Resendiz MD Primary Care Provider: Janis Prakash DO Diagnoses at Discharge Discharge Diagnosis (1) Acute on chronic respiratory failure with hypoxemia: Status: Acute (2) Community acquired pneumonia: Status: Acute (3) CHF exacerbation: Status: Acute (4) Diastolic heart failure: Status: Acute (5) A-fib: Status: Acute Problem details: Not on anticoagulation due to anemia and hematuria (6) COPD (chronic obstructive pulmonary disease): Status: Acute Problem details: 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 (7) Altered mental status: Status: Acute Qualifiers: Altered mental status type: unspecified Qualified Code(s): R41.82 - Altered mental status, unspecified (8) COVID-19 ruled out: Status: Acute (9) Axillary lymphadenopathy: Status: Acute (10) Chronic pain disorder: Status: Acute (11) Chronic prescription opiate use: Status: Acute (12) Parkinson's disease: Status: Acute (13) DNR (do not resuscitate): Status: Acute Reason for Visit Reason for Visit: AMS Hospital Course Discharge Summary: Salas Oneal is a 78 year old male who carries diagnosis of Parkinson's disease, paroxysmal atrial fibrillation, not on anticoagulation due to hematuria, prostate cancer status post chemotherapy was brought in by EMS for chief complaint of confusion and hypoxia. Patient himself is not sure why he was sent to the hospital at the time of my interview, he is able to tell me that at baseline he uses walker for ambulation, he has not experienced any recent falls, he has been using 4 to 5 L of oxygen [id number], he has not noticed any fever, shortness of breath, chest pain, nausea, vomiting or diarrhea. His noticed that he was confused at home and that is why EMS was called, at the time evaluation he was saturating 70% on 6 L, after improvement in oxygenation he became more alert and was able to give me above-mentioned details. Further history was taken by his . She states patient has been complaining increasingly of pain in his neck and head for which he underwent Botox injections at [facility] with his doctor. 2 days after getting the treatment amount of used he started having symptoms of runny nose and fever and cough. Other sick contact was through his neighbor whose has recently had strep infection. As there were multiple cases of COVID-19 at [facility] recently COVID-19 was checked and it was ruled out. He was started on broad-spectrum antibiotics for committee acquired pneumonia. He responded well to the treatment. It seems patient's symptoms of hypoxia is most likely because of somnolence from increased opiates use. As per his patient is taking 30 mg of OxyContin every 4 hours 1 to 2 tablets which is usually 2 tablets these days along with tizanidine 8 mg 3 times daily. His pain medications were reduced and the plan was discussed with both with and the patient. Pain medications were not reduced more than 30 mg every 6 hour to avoid opiate withdrawal. During hospitalization patient's heart rate and blood pressure was on the higher side which is thought to be because of possible mild opiate withdrawal. His also stated at home he has had multiple episodes of low blood pressure in the last 2 weeks after giving pain medications because of HSP blood pressure medications have been reduced. Patient's blood pressure became a lot more stable on new blood pressure medications. He supposed to take hydralazine 25 mg 3 times daily and Lopressor 75 mg twice daily now. CT chest was done which showed a possible lymphadenopathy with mass-effect in left axilla around shoulder blade which could be the cause of his pain in neck and head because of neuropathy. This was discussed with the patient and he was advised for a possible excisional biopsy to rule out recurrence of malignancy. Patient stated he wanted to follow-up with his oncologist at [facility] and he will be doing that soon. Because of increased opiate use and safe withdrawal of medications patient has been advised to follow-up at pain clinic. He has been discharged in hemodynamically stable condition and home oxygen evaluation has been done prior to discharge. Physical Exam Narrative: EXAM NARRATIVE: General: No acute distress, AO x3, tremor present HEENT: PERRLA, pupils bilaterally equal and reactive Chest: Normal vesicular breath sounds, bronchial breath sounds left lower and middle zone, occasional rhonchi CVS: S1-S2 regular, no murmurs, no tachycardia, no gallops, no rubs Abdomen: Soft, nontender, no organomegaly, bowel sounds present Neuro: No focal deficits, no facial deformity, AO x3, power 5/5 in all limbs Discharge Data Data Completed and Pending: Completed Studies During Hospitalization Category Date Time Status CT chest wo con 7 1250 Urgent Cat Scan 08/25/19 10:[address] head wo con* 7 0450 Urgent Cat Scan 08/24/19 20:14 Completed XR chest 1V suraj ble 06930 Urgent Exams 08/24/19 20:14 Completed CV echo complete* [id number] Routine Ultrasound 08/26/19 10:50 Completed Pending at discharge Category Date Time Status Blood Culture Sta t Lab 08/24/19 20:54 Results Sputum Culture an d Gram Stain Stat Lab 08/27/19 09:45 Received Labs from last 24 hours 08/27/19 08/27/19 08/25/19 05:20 05:20 12:07 WBC 9.6 RBC 4.27 Hgb 13.5 Hct 41.6 L MCV 97.4 H MCH 31.6 MCHC 32.5 RDW 13.0 Plt Count 242 MPV 9.3 Neut % (Auto) 53.2 Lymph % (Auto) 32.2 Leon % (Auto) 10.2 Eos % (Auto) 3.2 Baso % (Auto) 0.9 Neut # (Auto) 5.1 Lymph # (Auto) 3.1 Leon # (Auto) 1.0 H Eos # (Auto) 0.3 Baso # (Auto) 0.1 Nucleated RBC % (a uto) 0 Nucleated RBCs # 0.0 Sodium 132 L Potassium 4.3 Chloride 93 L Carbon Dioxide 26 Anion Gap 17.3 BUN 26 H Creatinine 1.0 Glucose 129 H Calculated Osmolal ity 273 L Calcium 9.7 Total Bilirubin 0.4 AST 19 ALT 7 Alkaline Phosphata se 64 Total Protein 6.9 Albumin 4.2 Globulin 2.7 Nasal/Oral COVID-1 9 PCR See comment Addt'l Data from Hospital Stay: CT chest FINDINGS: Shunt tube is seen along the left anterior chest wall extends into the subclavian vein. Enlarging mass defect is seen adjacent to the scapula and axilla on the left. This appears to be an enlarged lymph node. This changes were not noted on the previous exam of 02/08/2018. Degenerate changes along the clavicular articulations with the sternum bilaterally. There is heavy arteriosclerotic changes of the vasculature in the chest including the aorta which shows heavy calcification along the arch and descending aorta. There is no aneurysms of the aorta seen There is calcification in the coronary arteries. A previous exam is prominent right pleural effusion this is completely cleared there is mild scarring in the right lung base. The liver was normal. The adrenal glands were both normal in size no masses. The peripheral lungs shows some scarring and fibrosis but no masses or pneumonia. The right shoulder shows degenerate changes the findings are similar to the previous exam. A small lymph node in the aortic window on the left is again seen CT/CT chest wo con [id number] IMPRESSION: A mass defect is seen in the left axilla not observed on previous exam 02/08/2018. The benign lymphadenopathy in the mediastinum is again noted. Coronary artery disease. Chronic obstructive pulmonary disease findings again seen. Heavy arteriosclerotic changes in the aorta. But no aneurysms noted.CT Vitals: Last Vital Signs Temp 97.9 F 08/27/19 11:17 Pulse 112 H 08/27/19 11:17 Resp 18 08/27/19 11:17 BP 101/69 08/27/19 11:17 Pulse Ox 95 08/27/19 11:17 Discharge Plan Discharge Patient Disposition: Home, Self-Care Condition: Stable Prescriptions: New furosemide 40 mg Tablet 40 mg PO DAILY@0800 Qty: 30 RF: 0 carbidopa-levodopa 50-200 mg Tablet Extended Release 1 ea PO BID Qty: 30 RF: 0 hydralazine 50 mg Tablet 25 mg PO TID Qty: 90 RF: 0 ipratropium-albuterol 0.5 mg-3 mg(2.5 mg base)/3 mL Solution For Nebulization 3 ml inhalation Q6H.RESPIRATORY Qty: 30 RF: 0 metoprolol tartrate 50 mg Tablet 75 mg PO BID Qty: 60 RF: 0 Continued albuterol sulfate 2.5 mg /3 mL (0.083 %) Solution For Nebulization 2.5 mg INHALATION Q4H PRN (Reason: Shortness Of Breath) RF: 0 alprazolam 0.5 mg Tablet 0.5 mg PO TID PRN (Reason: Anxiety) RF: 0 amiodarone 100 mg Tablet 100 mg PO DAILY RF: 0 primidone 50 mg Tablet RF: 0 Lidocaine Pain Relief 4 % Adhesive Patch,Medicated TOPICAL RF: 0 tizanidine 2 mg Tablet 2 mg PO TID RF: 0 citalopram 40 mg Tablet 40 mg PO BEDTIME RF: 0 sucralfate 1 gram Tablet 1 g PO QID RF: 0 ondansetron 8 mg Tablet,Disintegrating 8 mg PO Q8H PRN (Reason: Nausea And Vomiting) RF: 0 tamsulosin 0.4 mg Capsule 0.4 mg PO DAILY RF: 0 pantoprazole 40 mg Tablet,Delayed Release (Dr/Ec) 40 mg PO DAILY RF: 0 nitroglycerin 0.4 mg Tablet, Sublingual 0.4 mg SUBLINGUAL Q5M PRN (Reason: Chest Pain) RF: 0 aspirin 81 mg Tablet,Chewable 81 mg PO DAILY RF: 0 Asper-Flex 10 % Cream 1 applic TOPICAL QID PRN (Reason: Pain, Mild) RF: 0 magnesium oxide 250 mg magnesium Tablet 250 mg PO BID RF: 0 (DME) nebulizer and compressor Device MISCELLANEOUS RF: 0 levalbuterol tartrate 45 mcg/actuation Hfa Aerosol Inhaler 2 inh INHALATION Q6H PRN (Reason: Shortness Of Breath) RF: 0 lubiprostone 24 mcg Capsule 24 mcg PO BID RF: 0 Vitamin C 500 mg Tablet 500 mg PO DAILY RF: 0 Vitamin D3 25 mcg (1,000 unit) Tablet 25 mcg PO DAILY RF: 0 Vibramycin 100 mg Capsule 100 mg PO BID Qty: 4 RF: 0 Changed oxycodone 30 mg Tablet 30 mg PO Q6H PRN (Reason: Pain) Qty: 10 RF: 0 Discontinued Augmentin 500-125 mg Tablet BID RF: 0 ocdfjeqagh-jhkaqydhcmhjd-tjhc 50-325-40 mg Capsule 1 cap PO Q4H PRN (Reason: Headache) RF: 0 metoprolol tartrate 50 mg Tablet 50 mg PO BID RF: 0 hydralazine 50 mg Tablet 50 mg PO TID RF: 0 Discharge Orders: Discharge Order (Routine); Ordered 08/27/19 Ordered By: Dionisio Resendiz Referrals: Janis Prakash DO [Primary Care Provider] - 7-10 days Discharge Diet: Regular Discharge Activity: Resume usual activity Activity Restrictions/Additional Instructions: I have discussed in detail please try to avoid using pain medications as much as he can. That seems to remain because of your hypoxia. Please follow-up with pain clinic. For possible mass-effect/lymphadenopathy in the left axilla please follow-up with your oncologist at [facility] for excisional biopsy as that could be the cause of your pain. Please continue taking doxycycline for 2 more days to finish a course of antibiotics. Discharge Attestations Time Spent in Discharge Care*: greater than 30 min Specific Discharge Activities: Specific discharge activities: educating patient, educating and/or supporting family/caregiver, discussing with adult protective caseworker/social workers/dc planners, documenting/other paperwork and evaluating patient/reviewing data Status at Discharge: Cognitive status at discharge: cognitively intact, Behavioral status at discharge: cooperative, Functional status at discharge: other assisted ambulation Overall status at discharge: patient is back to baseline Quality Metrics Clinical Quality Measures During this hospital stay, did patient experience: None Coding Level of Care Code Acute Trust Officer for Obie Phillip Diagnoses Acute on chronic respiratory failure with hypoxemia J96.21 Community acquired pneumonia J18.9 CHF exacerbation I50.9 Diastolic heart failure I50.30 A-fib I48.91 COPD (chronic obstructive pulmonary disease) J44.9 Altered mental status R41.82 Altered mental status type: unspecified COVID-19 ruled out Z03.818 Axillary lymphadenopathy R59.0 Chronic pain disorder G89.4 Chronic prescription opiate use Z79.891 Parkinson's disease G20 DNR (do not resuscitate) Z66
== END 2019-08-27 14:30 | disposition home or self-care (01) | DRG 291 ==
LOC: ER 21:58 → MEDSURG 22:19
PROVIDERS: Emergency Medicine; Admitting Provider Internal Medicine; PCP Family Medicine; Visit Provider Student in an Organized Health Care Education/Training Program
DX: I13.0 Hypertensive heart and chronic kidney disease with heart failure and stage 1 through stage 4 chronic kidney disease, or unspecified chronic kidney disease (principal); J18.9 Pneumonia, unspecified organism; I50.33 Acute on chronic diastolic (congestive) heart failure; J96.21 Acute and chronic respiratory failure with hypoxia; J44.0 Chronic obstructive pulmonary disease with (acute) lower respiratory infection; G20 Parkinson's disease; I48.0 Paroxysmal atrial fibrillation; C61 Malignant neoplasm of prostate; Z92.21 Personal history of antineoplastic chemotherapy; Z99.81 Dependence on supplemental oxygen; N18.9 Chronic kidney disease, unspecified; D63.1 Anemia in chronic kidney disease; N40.0 Benign prostatic hyperplasia without lower urinary tract symptoms; I25.10 Atherosclerotic heart disease of native coronary artery without angina pectoris; G93.89 Other specified disorders of brain; K21.9 Gastro-esophageal reflux disease without esophagitis; E03.9 Hypothyroidism, unspecified; Z87.440 Personal history of urinary (tract) infections; Z87.891 Personal history of nicotine dependence; Z79.82 Long term (current) use of aspirin; Z79.51 Long term (current) use of inhaled steroids; Z20.828 Contact with and (suspected) exposure to other viral communicable diseases; Z79.891 Long term (current) use of opiate analgesic; G89.29 Other chronic pain; Z66 Do not resuscitate
CPT/HCPCS: 12345; 36415; 36600; 70450; 71045; 71250; 80048; 80053; 81001; 82607; 82746; 82805; 83615; 83880; 84145; 84443; 84484; 85025; 85378; 86403; 87040; 87070; 87205; 87449; 87635; 87641; 93005; 93306; 94640; 96372; 99282; J0456; J0696; J1650; J2930; J7050; J7611; J7626; Q0144

== ENCOUNTER 2019-11-13 07:05 | Outpatient (CLI) | payer MEDICARE, OTHER, SELFPAY ==
--- NOTE | 2019-11-13 07:22 | US_ITS ---
WS: [id number] ULTRASOUND SOFT TISSUES LEFT axilla HISTORY: AXILLARY MASS, LEFT COMPARISON: 2019 TECHNIQUE: 2-D and color Doppler imaging is submitted. No soft tissue mass or fluid collection is identified. No adenopathy. US/US soft tissue/extremity [id number] IMPRESSION: Negative LEFT axillary ultrasound.
== END 2019-11-13 07:06 | disposition home or self-care (01) ==
PROVIDERS: PCP Family Medicine; Visit Provider Family Medicine
DX: R22.32 Localized swelling, mass and lump, left upper limb (principal)
CPT/HCPCS: 76882

== ENCOUNTER 2020-11-30 21:31 | Emergency (ER) | payer MEDICARE, OTHER, SELFPAY ==
--- NOTE | 2020-11-30 21:36 | ECG_ITS ---
[facility] Test Date: 2020-11-30 Pat Name: Salas Oneal Department: Room: Gender: Male [employer] Instructor: : 1940 Requested By: Sarwat Snowden Order Number: [id number] Nguyễn MD: Edward House M.D. Measurements Intervals [place] Rate: 101 P: 256 OR: 205 QRS: -24 QRSD: 118 T: 58 QT: 386 QTc: 501 Interpretive Statements SINUS TACHYCARDIA INFERIOR MYOCARDIAL INFARCTION , PROBABLY OLD [40+ ms Q WAVE AND/OR ST/T ABNORMALITY IN II/aVF] Compared to ECG 08/24/2019 22:17:47 Myocardial infarct finding now present Intraventricular conduction delay no longer present Electronically Signed On 12-01-2020 20:08:02 CDT by Edward House M.D. [id number]
[2020-11-30 21:38] VITALS: BP 131/91; PULSE 101; RESP 22; TEMP 36.9; O2SAT 100; BMI 31.4
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
[2020-11-30 22:00] VITALS: BP 132/95; PULSE 100; RESP 16; TEMP 37.1; O2SAT 100
[2020-11-30 22:12] LABS: Basophils % 0.4 %; Eosinophils # 0.1 10^3/uL (0.0-0.8); Eosinophils % 1.1 %; Hematocrit 38.6 % (42.0-52.0); Hemoglobin 12.7 g/dL (11.7-16.6); Lymphocytes # 2.1 10^3/uL (0.8-4.8); Lymphocytes % 29.2 %; Mean Corpuscular HGB Conc 32.9 g/dL (30.0-36.0); Mean Corpuscular Hemoglobin 31.9 pg (28.0-34.0); Mean Platelet Volume 8.9 fL (7.4-10.4); Monocytes # 0.8 10^3/uL (0.2-0.9); Monocytes % 10.9 %; Neutrophils # 4.26 10^3/uL (1.8-7.7); Nucleated Red Blood Cells % 0 %; Platelet Count 202 10^3/cmm (130-400); Red Blood Count 3.98 10^6/uL (4.1-5.3); Red Cell Distribution Width 12.9 % (12.1-15.1); White Blood Count 7.3 10^3/uL (4.0-10.0)
--- NOTE | 2020-11-30 22:15 | CTR_ITS ---
PROCEDURE INFORMATION: Exam: CT Head Without Contrast Exam date and time: 11/30/2020 10:15 PM Age: 80 years old Clinical indication: Syncope and collapse; Additional info: HESTER TECHNIQUE: Imaging protocol: Computed tomography of the head without contrast. Radiation optimization: All CT scans at this facility use at least one of these dose optimization techniques: automated exposure control; mA and/or kV adjustment per patient size (includes targeted exams where dose is matched to clinical indication); or iterative reconstruction. COMPARISON: CT head wo con* [id number] 08/24/2019 8:24 PM RADIATION DOSE METRICS: Total DLP (mGy-cm): 971.23 FINDINGS: Brain: There is moderate cerebral atrophy. There is moderate diffuse heterogeneity of the white matter attenuation, consistent with chronic white matter ischemic changes. No intracranial hemorrhage. No intracranial mass. No acute brain ischemia. No midline shift of brain. Still matter and white matter interfaces are preserved. Cerebral ventricles: No ventriculomegaly. Paranasal sinuses: Visualized sinuses are unremarkable. No fluid levels. Mastoid air cells: Visualized mastoid air cells are well aerated. Orbital cavity: Symmetric orbits. Bilateral lens replacements. Vasculature: Intracranial atherosclerosis. Bones/joints: Unremarkable. No acute fracture. Soft tissues: Unremarkable. CT/CT head wo con* [id number] IMPRESSION: Negative for acute intracranial abnormality. Radiation Dose CTDIVOL = (mGy): DLP = 971.23 (mGy-cm)
--- NOTE | 2020-11-30 22:15 | ECG_ITS ---
[facility] Test Date: 2020-11-30 Pat Name: Salas Oneal Department: Room: Gender: Male Review Engineer: : 1940 Requested By: Sarwat Snowden Order Number: [id number] Nguyễn MD: Edward House M.D. Measurements Intervals [place] Rate: 100 P: -51 TX: 193 QRS: -13 QRSD: 116 T: 51 QT: 400 QTc: 517 Interpretive Statements ELECTRONIC VENTRICULAR PACEMAKER Compared to ECG 11/30/2020 21:45:06 Sinus tachycardia no longer present Myocardial infarct finding no longer present Electronically Signed On 12-01-2020 20:07:22 CDT by Edward House M.D. [id number] f
[2020-11-30 22:16] LABS: Alanine Aminotransferase < 5 U/L (0-41); Alkaline Phosphatase 51 IU/L (40-130); Anion Gap 14.1 (5-19); Aspartate Amino Transferase 14 U/L (0-40); Blood Urea Nitrogen 16 mg/dL (8-23); Calcium 9.3 mg/dL (8.5-10.5); Carbon Dioxide 29 mmol/L (22-29); Chloride 88 mmol/L (98-107); Globulin 2.7 g/dL (1.3-4.6); Glucose 114 mg/dL (65-115); Osmolality Calculated 266 mOsm/kg (285-295); Potassium 4.1 mmol/L (3.5-5.1); Sodium 127 mmol/L (136-145); Total Bilirubin 0.3 mg/dL (0.15-1.2); Total Protein 6.7 g/dL (6.6-8.7)
[2020-11-30 22:45] LABS: Troponin(5th) Baseline 63 ng/L (0-15)
[2020-11-30] MEDS: sodium chloride 0.9% 1,000 ML 999 ML IV (23:06)
[2020-12-01] MEDS: acetaminophen 325 mg Tablet 650 MG PO (00:33)
[2020-12-01] MEDS: ondansetron 2 mg/ML SDV 2 mL 4 MG IVP (00:33)
[2020-12-01] MEDS: metoprolol tartrate 50 mg Tablet 75 MG PO (01:01)
[2020-12-01 01:13] VITALS: BP 180/120; PULSE 100; RESP 16; TEMP 37.1; O2SAT 100
== END 2020-12-01 01:25 | disposition home or self-care (01) ==
PROVIDERS: Emergency Provider Emergency Medicine; PCP Family Medicine
DX: R55 Syncope and collapse (principal); Z79.82 Long term (current) use of aspirin; J44.9 Chronic obstructive pulmonary disease, unspecified; I25.10 Atherosclerotic heart disease of native coronary artery without angina pectoris; E11.9 Type 2 diabetes mellitus without complications; I11.0 Hypertensive heart disease with heart failure; I50.30 Unspecified diastolic (congestive) heart failure; G20 Parkinson's disease; Z85.46 Personal history of malignant neoplasm of prostate; Z87.891 Personal history of nicotine dependence
CPT/HCPCS: 36415; 70450; 80053; 84484; 85025; 93005; 96361; 96374; 99284; J2405; J7030

== ENCOUNTER 2021-02-27 17:28 | Inpatient (IN) | payer MEDICARE, OTHER, SELFPAY ==
[2021-02-27] VITALS (25 sets, daily range): BP systolic 169–212; BP diastolic 108–146; PULSE 114–120; RESP 13–31; TEMP 36.7; O2SAT 77–98
--- NOTE | 2021-02-27 18:30 | XRR_ITS ---
PROCEDURE INFORMATION: Exam: XR Chest Exam date and time: 02/27/2021 6:30 PM Age: 80 years old Clinical indication: Shortness of breath; Additional info: SOB TECHNIQUE: Imaging protocol: XR of the chest. Views: 1 view. COMPARISON: CT chest con [id number] 08/25/2019 11:14 AM FINDINGS: Tubes, catheters and devices: Left-sided Port-A-Cath Lungs: Emphysematous changes. Left lower lobe atelectasis versus minimal infiltrate. Pleural spaces: Unremarkable. No pleural effusion. No pneumothorax. Heart/Mediastinum: Cardiomegaly. Bones/joints: Unremarkable. XR/XR chest 1V portable [id number] IMPRESSION: 1. Cardiomegaly. 2. Emphysematous changes. 3. Left lower lobe atelectasis versus minimal infiltrate.
--- NOTE | 2021-02-27 18:30 | XRR_ITS ---
PROCEDURE INFORMATION: Exam: XR Abdomen Exam date and time: 02/27/2021 6:30 PM Age: 80 years old Clinical indication: Constipation TECHNIQUE: Imaging protocol: XR of the abdomen. Views: Frontal supine view of the abdomen. 1 View. COMPARISON: CT abdomen pelvis w con* [id number] 03/03/2016 5:41 PM FINDINGS: Gastrointestinal tract: Normal. No bowel dilation. Bones/joints: Unremarkable. XR/XR KUB portable [id number] IMPRESSION: No acute findings.
--- NOTE | 2021-02-27 19:16 | CTR_ITS ---
PROCEDURE INFORMATION: Exam: CT Head Without Contrast Exam date and time: 02/27/2021 7:16 PM Age: 80 years old Clinical indication: Pain; Headache; Additional info: HESTER TECHNIQUE: Imaging protocol: Computed tomography of the head without contrast. Radiation optimization: All CT scans at this facility use at least one of these dose optimization techniques: automated exposure control; mA and/or kV adjustment per patient size (includes targeted exams where dose is matched to clinical indication); or iterative reconstruction. COMPARISON: CT head wo con* [id number] 11/30/2020 10:24 PM RADIATION DOSE METRICS: Total DLP (mGy-cm): 1737.56 FINDINGS: Brain: Moderate diffuse white matter disease likely reflecting chronic microvascular ischemic changes. Cerebral ventricles: No ventriculomegaly. Paranasal sinuses: Visualized sinuses are unremarkable. No fluid levels. Mastoid air cells: Visualized mastoid air cells are well aerated. Bones/joints: Unremarkable. No acute fracture. Soft tissues: Unremarkable. CT/CT head wo con* [id number] IMPRESSION: Negative for intracranial hemorrhage or mass effect
--- NOTE | 2021-02-27 19:16 | ECG_ITS ---
[facility] Test Date: 2021-02-27 Pat Name: Salas Oneal Department: Room: Gender: Male Drafter Civil (Cad): : 1940 Requested By: Sarwat Snowden Order Number: [id number] Reading MD: BRIAN CHUNG Measurements Intervals [place] Rate: 115 P: WI: QRS: -8 QRSD: 112 T: 96 QT: 331 QTc: 459 Interpretive Statements SINUS TACHYCARDIA MODERATE INTRAVENTRICULAR CONDUCTION DELAY [110+ ms QRS DURATION] NONSPECIFIC ST & T-WAVE ABNORMALITY Compared to ECG 11/30/2020 23:36:26 Intraventricular conduction delay now present T-wave abnormality now present Ventricular-paced complex(es) or rhythm no longer present Electronically Signed On 02-28-2021 20:03:41 FLYING SQUAD WORKER by BRIAN CHUNG [id number]
--- NOTE | 2021-02-27 19:25 | W.ED.WEAKNES ---
HPI - Weakness General: Chief complaint: Weakness Stated complaint: HIGH BP/CONSTIPATED Time Seen by Provider: 02/27/21 18:59 Source: patient Mode of arrival: ambulatory Limitations: no limitations History of Present Illness: HPI Narrative: 80-year-old male states that over the last 2 to 3 days has been having generalized weakness, hypotension and tachycardia. He states he has been told in the past he is A. fib states his consumer insights intern stopped his meds for his A. fib that over the summer. States he saw his PCP and was started on digoxin but his blood pressure has been in the 200s and he has been tachycardic. He is tachycardic here in the 116. States he is also having difficulty walking denies any chest pain denies any shortness of breath denies any worsening improving factors. Associated symptoms: Denies chills, dysuria, easy bruising, fever(s), nausea or vomiting Review of Systems Const: Denies: fever(s), chills, body aches or change in appetite Eyes: Denies: blurry vision or eye discomfort ENMT: Denies: throat pain or dental pain Card: Reports: palpitations Resp: Denies: dyspnea GI: Denies: abdominal pain, nausea, vomiting or diarrhea : Denies: dysuria Musc: Denies: neck pain or back pain Skin/Breast: Denies: rash Neuro: Reports: weakness in extremities Psych: Denies: depression Nura/Lymph: Denies: easy bruising All/Imm: Denies: urticaria PFSH ED PFSH: Medical History A-fib Not on anticoagulation due to anemia and hematuria BPH (benign prostatic hyperplasia) Chronic pain disorder Chronic prescription opiate use CKD (chronic kidney disease) COPD (chronic obstructive pulmonary disease) 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 Coronary artery disease Diabetes Diastolic heart failure Encephalomalacia Right frontal lobe Essential hypertension GERD (gastroesophageal reflux disease) Hypothyroidism Parkinson's disease Paroxysmal atrial fibrillation Prostate cancer Recurrent UTI Sleep apnea Surgical History S/P cholecystectomy Family History Other Hypertension Social History Smoking and tobacco status: former smoker Alcohol intake: never Household members: spouse Housing: House Physical Exam Const: COMMON NORMALS: no acute distress, patient oriented x3 and healthy appearing HENMT: COMMON NORMALS: normocephalic and atraumatic HEAD & SCALP: normocephalic and atraumatic Eye: COMMON NORMALS: Equal, round and reactive pupils present and EOMs intact bilaterally PUPIL: Yes Equal, round and reactive pupils present Neck/C-Spine: COMMON NORMALS: full ROM and supple Chest: COMMONS NORMALS: normal inspection of the chest and normal palpation of entire chest wall Resp: COMMON NORMALS: normal respiratory effort, No retractions, No use of accessory muscles and clear to auscultation bilaterally AUSCULTATION: clear to auscultation bilaterally Cardio: COMMON NORMALS: regular rhythm and No murmurs present (Cardio) RATE: tachycardic RHYTHM: regular rhythm GI: COMMON NORMALS: Normal to inspection, nondistended, normoactive bowel sounds present, Soft to palpation, non-tender and no masses PALPATION: Yes Soft to palpation Extremity: COMMON NORMALS: normal to inspection and full ROM Neuro: COMMON NORMALS: patient oriented x3, moves all extremities and no focal motor deficits Psych: COMMON NORMALS: mental status grossly normal, Normal thought process present and cooperative THOUGHT PROCESS: Normal thought process present Skin: COMMON NORMALS: no rashes or lesions noted and no wounds GENERAL SKIN EXAM: no rashes or lesions noted Course Vital Signs: Vital signs: Vital Signs Temperature 98.0 F 02/27/21 18:05 Pulse Rate 115 H 02/27/21 20:33 Respiratory Rate 20 H 02/27/21 20:33 Blood Pressure 202/132 02/27/21 20:33 Pulse Oximetry 95 02/27/21 20:33 MDM - Weakness MDM Narrative: Medical decision making narrative: Patient presents here with atrial flutter with tachycardia and hypertension. Patient still hypertensive after Cardizem labetalol bolus patient started on a Cardizem drip I spoke to hospitalist Dr. Emerson and will admit at this time. Patient has been stable while here. Lab Data: Labs: Lab Results 02/27/21 02/27/21 02/27/21 20:15 20:15 20:15 WBC Cancelled Corrected WBC Cancelled RBC Cancelled Hgb Cancelled Hct Cancelled MCV Cancelled MCH Cancelled MCHC Cancelled RDW Cancelled Plt Count Cancelled MPV Cancelled Gran % Cancelled Neut % (Auto) Cancelled Lymph % (Auto) Cancelled [place] % (Auto) Cancelled Eos % (Auto) Cancelled Baso % (Auto) Cancelled Neut # (Auto) Cancelled Lymph # (Auto) Cancelled [place] # (Auto) Cancelled Eos # (Auto) Cancelled Baso # (Auto) Cancelled Absolute Gran (aut o) Cancelled Nucleated RBC % (a uto) Cancelled Nucleated RBCs # Cancelled PT 13.50 SECONDS SEC ONDS (12.1-14.9) INR 1.00 (0.8-1.2) Sodium 133 mmol/L L mmol /L (136-145) Potassium 4.2 mmol/L mmol/L (3.5-5.1) Chloride 96 mmol/L L mmol/ L (98-107) Carbon Dioxide 23 mmol/L mmol/L (22-29) Anion Gap 18.2 (5-19) BUN 25 mg/dL H mg/dL (8-23) Creatinine 0.8 mg/dL mg/dL (0.7-1.2) GFR Calculation Not Reportable Glucose 151 mg/dL H mg/dL (65-115) Calculated Osmolal ity 283 mOsm/kg L mOs m/kg (285-295) Calcium 9.2 mg/dL mg/dL (8.5-10.5) Total Bilirubin 0.3 mg/dL mg/dL (0.15-1.2) AST 26 U/L U/L (0-40) ALT 13 U/L U/L (0-41) Alkaline Phosphata se 65 IU/L IU/L (40-130) Troponin T Baselin e Total Protein 7.4 g/dL g/dL (6.6-8.7) Albumin 4.5 g/dL g/dL (3.5-5.2) Globulin 2.9 g/dL g/dL (1.3-4.6) Digoxin 0.3 ng/mL L ng/mL (0.6-1.2) 02/27/21 02/27/21 20:15 20:22 WBC 9.2 10^3/uL 10^3/ uL (4.0-10.0) Corrected WBC RBC 4.25 10^6/uL 10^6 /uL (4.1-5.3) Hgb 13.0 g/dL g/dL (11.7-16.6) Hct 40.6 % L % (42.0-52.0) MCV 95.5 fl H fl (80-94) MCH 30.6 pg pg (28.0-34.0) MCHC 32.0 g/dL g/dL (30.0-36.0) RDW 12.9 % % (12.1-15.1) Plt Count 256 10^3/cmm 10^3 /cmm (130-400) MPV 9.1 fL fL (7.4-10.4) Gran % Neut % (Auto) 78.0 % % Lymph % (Auto) 18.2 % % [place] % (Auto) 3.3 % % Eos % (Auto) 0.0 % % Baso % (Auto) 0.1 % % Neut # (Auto) 7.20 10^3/uL 10^3 /uL (1.8-7.7) Lymph # (Auto) 1.7 10^3/uL 10^3/ uL (0.8-4.8) [place] # (Auto) 0.3 10^3/uL 10^3/ uL (0.2-0.9) Eos # (Auto) 0.0 10^3/uL 10^3/ uL (0.0-0.8) Baso # (Auto) 0.0 10^3/uL 10^3/ uL (0.0-0.1) Absolute Gran (aut o) Nucleated RBC % (a uto) 0 % % Nucleated RBCs # 0.0 /100WBC /100W BC PT INR Sodium Potassium Chloride Carbon Dioxide Anion Gap BUN Creatinine GFR Calculation Glucose Calculated Osmolal ity Calcium Total Bilirubin AST ALT Alkaline Phosphata se Troponin T Baselin e 36 ng/L H ng/L (0-15) Total Protein Albumin Globulin Digoxin Imaging Data^: CXR: Attestation: I personally reviewed and interpreted this imaging study as follows: Radiologist's impression: [address] [address] XRay Report Signed Patient: Salas Oneal Unit #: [id number] : 1940 Age/Sex: 80 / M ADM Date: 02/27/21 Loc: ER Room/Bed: Attending Dr: Ordering Provider/Ordering MD: Sarwat Snowden MD Date of Service: 02/27/21 Procedure(s): XR chest 1V portable [id number] Accession Number(s): [id number] Report Number: [id number] PROCEDURE INFORMATION: Exam: XR Chest Exam date and time: 02/27/2021 6:30 PM Age: 80 years old Clinical indication: Shortness of breath; Additional info: SOB TECHNIQUE: Imaging protocol: XR of the chest. Views: 1 view. COMPARISON: CT chest [facility] [id number] 08/25/2019 11:14 AM FINDINGS: Tubes, catheters and devices: Left-sided Port-A-Cath Lungs: Emphysematous changes. Left lower lobe atelectasis versus minimal infiltrate. Pleural spaces: Unremarkable. No pleural effusion. No pneumothorax. Heart/Mediastinum: Cardiomegaly. Bones/joints: Unremarkable. XR/XR chest 1V portable [id number] IMPRESSION: 1. Cardiomegaly. 2. Emphysematous changes. 3. Left lower lobe atelectasis versus minimal infiltrate. Dictated By: Joe Arshad MD Signed By: Joe Arshad MD Signed Date/Time: 02/27/212001 DD/ 29 KUB: Radiologist's impression: [address] [address] XRay Report Signed Patient: Salas Oneal Unit #: [id number] : 1940 Age/Sex: 80 / M ADM Date: 02/27/21 Loc: ER Room/Bed: Attending Dr: Ordering Provider/Ordering MD: Sarwat Snowden MD Date of Service: 02/27/21 Procedure(s): XR KUB portable [id number] Accession Number(s): [id number] Report Number: [id number] PROCEDURE INFORMATION: Exam: XR Abdomen Exam date and time: 02/27/2021 6:30 PM Age: 80 years old Clinical indication: Constipation TECHNIQUE: Imaging protocol: XR of the abdomen. Views: Frontal supine view of the abdomen. 1 View. COMPARISON: CT abdomen pelvis w con* [id number] 03/03/2016 5:41 PM FINDINGS: Gastrointestinal tract: Normal. No bowel dilation. Bones/joints: Unremarkable. XR/XR KUB portable [id number] IMPRESSION: No acute findings. Dictated By: Joe Arshad MD Signed By: Joe Arshad MD Signed Date/Time: 02/27/212000 DD/ 29 CT Head: Attestation: I personally reviewed and interpreted this imaging study as follows: Radiologist's impression: [employer] [place] [address] CT Scan Report Signed Patient: Salas Oneal Unit #: [id number] : 1940 Age/Sex: 80 / M ADM Date: 02/27/21 Loc: ER Room/Bed: Attending Dr: Ordering Provider/Ordering MD: Sarwat Snowden MD Date of Service: 02/27/21 Procedure(s): CT head wo con* [id number] Accession Number(s): [id number] Report Number: [id number] PROCEDURE INFORMATION: Exam: CT Head Without Contrast Exam date and time: 02/27/2021 7:16 PM Age: 80 years old Clinical indication: Pain; Headache; Additional info: HESTER TECHNIQUE: Imaging protocol: Computed tomography of the head without contrast. Radiation optimization: All CT scans at this facility use at least one of these dose optimization techniques: automated exposure control; mA and/or kV adjustment per patient size (includes targeted exams where dose is matched to clinical indication); or iterative reconstruction. COMPARISON: CT head wo con* [id number] 11/30/2020 10:24 PM RADIATION DOSE METRICS: Total DLP (mGy-cm): 1737.56 FINDINGS: Brain: Moderate diffuse white matter disease likely reflecting chronic microvascular ischemic changes. Cerebral ventricles: No ventriculomegaly. Paranasal sinuses: Visualized sinuses are unremarkable. No fluid levels. Mastoid air cells: Visualized mastoid air cells are well aerated. Bones/joints: Unremarkable. No acute fracture. Soft tissues: Unremarkable. CT/CT head wo con* [id number] IMPRESSION: Negative for intracranial hemorrhage or mass effect Dictated By: Joe Arshad MD Signed By: Joe Arshad MD Signed Date/Time: 02/27/212001 DD/ 15 EKG Data^: EKG 1: Attestation: I personally reviewed and interpreted this EKG as follows: EKG interpretation date: 03/30/21 EKG interpretation time: 18:04 Interpretation: sinus tach hr [address] or t wave abnormalities qrs 110 qtc 406 EKG 2: Attestation: I personally reviewed and interpreted this EKG as follows: EKG interpretation date: 02/27/21 EKG interpretation time: 19:27 Interpretation: atrial flutter with rvr hr [address] or t wave abnormalities qrs 112 qtc 399 Discharge Plan Discharge Patient Disposition: Admitted As Inpatient Clinical Impression: Hypertension, Weakness Atrial flutter Qualifiers: Atrial flutter type: unspecified Qualified Code(s): I48.92 - Unspecified atrial flutter Condition: Stable Coding Level of Care Code ED Public Policy Mediator for Chg Fwd Exam Comprehensive
[2021-02-27] MEDS: labetalol 5 mg/mL SDV 20mL 10 MG IVP ×2 (20:06→23:35)
[2021-02-27 20:31] LABS: Basophils % 0.1 %; Hematocrit 40.6 % (42.0-52.0); Lymphocytes # 1.7 10^3/uL (0.8-4.8); Lymphocytes % 18.2 %; Mean Corpuscular Hemoglobin 30.6 pg (28.0-34.0); Mean Corpuscular Volume 95.5 fl (80-94); Mean Platelet Volume 9.1 fL (7.4-10.4); Monocytes # 0.3 10^3/uL (0.2-0.9); Monocytes % 3.3 %; Nucleated Red Blood Cells % 0 %; Platelet Count 256 10^3/cmm (130-400); Red Blood Count 4.25 10^6/uL (4.1-5.3); Red Cell Distribution Width 12.9 % (12.1-15.1); White Blood Count 9.2 10^3/uL (4.0-10.0)
[2021-02-27 20:40] LABS: Troponin(5th) Baseline 36 ng/L (0-15)
[2021-02-27 20:42] LABS: Alanine Aminotransferase 13 U/L (0-41); Albumin Level 4.5 g/dL (3.5-5.2); Alkaline Phosphatase 65 IU/L (40-130); Anion Gap 18.2 (5-19); Aspartate Amino Transferase 26 U/L (0-40); Blood Urea Nitrogen 25 mg/dL (8-23); Calcium 9.2 mg/dL (8.5-10.5); Carbon Dioxide 23 mmol/L (22-29); Chloride 96 mmol/L (98-107); Digoxin 0.3 ng/mL (0.6-1.2); Globulin 2.9 g/dL (1.3-4.6); Glucose 151 mg/dL (65-115); Osmolality Calculated 283 mOsm/kg (285-295); Potassium 4.2 mmol/L (3.5-5.1); Sodium 133 mmol/L (136-145); Total Bilirubin 0.3 mg/dL (0.15-1.2); Total Protein 7.4 g/dL (6.6-8.7)
--- NOTE | 2021-02-27 21:16 | ECG_ITS ---
[facility] Test Date: 2021-02-27 Pat Name: Salas Oneal Department: Room: Gender: Male Administration Clerk: : 1940 Requested By: Sarwat Snowden Order Number: [id number] Reading MD: BRIAN CHUNG Measurements Intervals [place] Rate: 115 P: [place]: QRS: -3 QRSD: 109 T: 117 QT: 318 QTc: 441 Interpretive Statements SUPRAVENTRICULAR TACHYCARDIA NONSPECIFIC ST & T-WAVE ABNORMALITY Compared to ECG 02/27/2021 19:27:54 Atrial flutter no longer present Intraventricular conduction delay no longer present T-wave abnormality still present Electronically Signed On 02-28-2021 20:12:10 COMPLAINTS COORDINATOR by BRIAN CHUNG [id number]
[2021-02-27] MEDS: carbidopa-levodopa 25-100mg Tablet 1 EACH PO (21:59)
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
[2021-02-27] MEDS: ondansetron 2 mg/ML SDV 2 mL 4 MG IVP (22:26)
[2021-02-27] MEDS: morphine 4 mg/mL SDV 1 mL IVP (22:26)
[2021-02-27 22:45] LABS: Troponin 5 2HR 36.03 ng/L (0-15); Troponin 5 2HR Delta 0.03 ABS# (0-10)
[2021-02-27] MEDS: oxyCODONE-APAP 5-325 mg Tablet 1 TAB PO (23:35)
[2021-02-28] VITALS (61 sets, daily range): BP systolic 98–210; BP diastolic 50–134; PULSE 58–134; RESP 9–28; TEMP 36.6–36.9; O2SAT 83–100
[2021-02-28] MEDS: ALPRAZolam 0.5 mg Tablet PO ×3 (00:19→22:59)
[2021-02-28] MEDS: tizanidine 4 mg Tablet 2 MG PO ×3 (00:19→18:21)
[2021-02-28] MEDS: acetaminophen 325 mg Tablet 650 MG PO ×3 (01:00→20:17)
[2021-02-28] MEDS: enoxaparin 40 mg/0.4 mL Syringe SUBCUT (01:01)
[2021-02-28] MEDS: ondansetron 2 mg/ML SDV 2 mL 4 MG IVP (01:01)
[2021-02-28] MEDS: digoxin 250 mcg/ml INJ 2 mL IVP (01:02)
[2021-02-28] MEDS: metoprolol tartrate 25 mg Tablet PO ×3 (01:02→20:17)
--- NOTE | 2021-02-28 01:16 | ECG_ITS ---
[facility] Test Date: 2021-02-27 Pat Name: Salas Oneal Department: Room: [facility] Gender: Male Pulmonary Specialist: : 1940 Requested By: Sarwat Snowden Order Number: [id number] Reading MD: BRIAN CHUNG Measurements Intervals [place] Rate: 117 P: MO: QRS: -19 QRSD: 110 T: 99 QT: 337 QTc: 470 Interpretive Statements SUPRAVENTRICULAR TACHYCARDIA NONSPECIFIC ST & T-WAVE ABNORMALITY Compared to ECG 11/30/2020 23:36:26 T-wave abnormality now present Ventricular-paced complex(es) or rhythm no longer present Electronically Signed On 02-28-2021 20:12:20 HOUSEKEEPER/CUSTODIAN/LAUNDRY WORKER by BRIAN CHUNG [email or web address]
[2021-02-28] MEDS: citalopram 20 mg Tablet 40 MG PO ×2 (01:33→20:12)
[2021-02-28 02:14] LABS: Basophils % 0.1 %; Hematocrit 41.6 % (42.0-52.0); Hemoglobin 13.7 g/dL (11.7-16.6); Lymphocytes # 1.6 10^3/uL (0.8-4.8); Mean Corpuscular HGB Conc 32.9 g/dL (30.0-36.0); Mean Corpuscular Hemoglobin 30.7 pg (28.0-34.0); Mean Corpuscular Volume 93.3 fl (80-94); Mean Platelet Volume 9.1 fL (7.4-10.4); Monocytes # 1.1 10^3/uL (0.2-0.9); Monocytes % 7.8 %; Neutrophils # 11.39 10^3/uL (1.8-7.7); Neutrophils % 80.6 %; Nucleated Red Blood Cells % 0 %; Platelet Count 290 10^3/cmm (130-400); Red Blood Count 4.46 10^6/uL (4.1-5.3); Red Cell Distribution Width 12.7 % (12.1-15.1); White Blood Count 14.1 10^3/uL (4.0-10.0)
[2021-02-28] MEDS: oxyCODONE IR 30 mg Tablet PO ×4 (02:30→22:59)
[2021-02-28] MEDS: lidocaine 5% Patch 1 PATCH TOPICAL ×3 (02:34→20:13)
[2021-02-28 02:41] LABS: Anion Gap 21.5 (5-19); Blood Urea Nitrogen 21 mg/dL (8-23); Calcium 9.1 mg/dL (8.5-10.5); Carbon Dioxide 22 mmol/L (22-29); Chloride 95 mmol/L (98-107); Glucose 154 mg/dL (65-115); Osmolality Calculated 286 mOsm/kg (285-295); Potassium 3.5 mmol/L (3.5-5.1); Sodium 135 mmol/L (136-145)
[2021-02-28 02:42] LABS: Magnesium 2.3 mg/dL (1.7-2.3); Phosphorus 2.2 mg/dL (2.5-4.5)
[2021-02-28] MEDS: ipratropium-albuterol 3 mL Neb INHALATION ×3 (02:45→20:22)
[2021-02-28 02:47] LABS: Troponin 5 6HR 40.21 ng/L (0-15); Troponin 5 6HR Delta 4.21 ng/L (0-12)
[2021-02-28 02:54] LABS: NT Pro B Type Natriuretic Pept 7531 pg/mL (0-450); Procalcitonin 0.03 ng/mL (0-0.5); Thyroid Stimulating Hormone 1.06 uIU/mL (0.27-4.20)
[2021-02-28 03:01] LABS: Estmated Average Glucose 120; Hemoglobin A1C 5.8 % (4.0-6.0)
[2021-02-28 03:05] LABS: Chol HDL Ratio 3.37 mg/dL (1.0-5.00); Cholesterol 175 mg/dL (0-200); HDL Cholesterol 52 mg/dL (60-100); LDL Cholesterol Calculated 97 mg/dL (50-129); LDL HDL Ratio 1.87 RATIO (0.00-3.22); Triglycerides 129 mg/dL (0-150)
--- NOTE | 2021-02-28 03:38 | PC.NURSE ---
Patient c/o HESTER despite medications given (see MAR). Outpatient Admitting Clerk notified, per Dr. Emerson Headache is chronic per and never goes away. Tje pain he had at home abd in ED was backpain in addition to headache. . Per patient, does not have a chronic headache and wants to take his medications from home. Educated patient that he has already received home medications with appropriate strength from home med list. Ice pack applied to back of neck. Will check on later.
--- NOTE | 2021-02-28 06:00 | ECG_ITS ---
[facility] Test Date: 2021-02-28 Pat Name: Salas Oneal Department: Room: ICU06 Gender: Male Key Carrier: : 1940 Requested By: Linda Emerson Order Number: [id number] Reading MD: BRIAN CHUNG Measurements Intervals [place] Rate: 58 P: [place]: QRS: -1 QRSD: 106 T: 60 QT: 476 QTc: 469 Interpretive Statements SINUS RYTHM PROLONGED QT INTERVAL Compared to ECG 02/27/2021 20:58:59 Prolonged QT interval now present Supraventricular tachycardia no longer present T-wave abnormality no longer present Electronically Signed On 02-28-2021 20:11:14 BRACE MAKER by BRIAN CHUNG [id number]
--- NOTE | 2021-02-28 06:36 | PC.NURSE ---
Patient c/o headache most of shift, given meds per MAY. Patient able to rest with eyes closed for approx. 2 hours or so. Explained multiple times re: medications given were similar to home medications, will readdress during morning rounds. Diltiazem gtt infusing, titrated per protocol.
[2021-02-28 07:35] LABS: Urine Appearance Clear (CLEAR); Urine Color Yellow (Yellow); pH Urine 8 (5-7)
[2021-02-28 07:36] LABS: Add Urine Microscopic? YES; Bilirubin Urine Neg (Negative); Blood Urine Neg (Negative); Glucose Urine UA 1+ (Normal); Ketones Urine 1+ (Negative); Leukocyte Esterase Urine Negative (Negative); Nitrate Urine Negative (Negative); Protein Urine 1+ (Negative); Sulfosalicylic Acid Urine Positive (Negative); Urobilinogen Urine Norm (Negative)
[2021-02-28 07:40] LABS: Bacteria Urine TRACE /hpf; RBC Urine RARE /hpf (0-2); Squamous Epithelial Cell Urine RARE /hpf (0-5); WBC Urine 0-4 /hpf (0-5)
[2021-02-28 07:41] LABS: Triple Phosphate Crystal Urine 0-4 /hpf
[2021-02-28 07:42] LABS: Amorphous Sediment Urine 1+ /hpf
[2021-02-28 07:44] LABS: Add Urine Culture? No
--- NOTE | 2021-02-28 08:25 | PC.NURSE ---
Cardizem gtt decreased to 5 mg/hr, heart rate was 58.
--- NOTE | 2021-02-28 08:38 | USCV_ITS ---
Salas Oneal Age: 80 Gender: M : 1940 Exam Date: 02/28/2021 13:45 Ordering Phys: Julieta French MD Technologist: MARYELLEN Exam Location: [facility] Indication: HEART FAILURE, BNP 7000 BP: 125 / 60 HR: 77 Rhythm: Sinus Technical Quality: Technically difficult study. POOR WINDOWS MEASUREMENTS (Male / Female) Normal Values 2D ECHO RV Chamber Size 2.3 cm LV Ejection Fraction MOD 2C 72.6 % LV Ejection Fraction 2C AL 72.3 % DOPPLER LVOT Peak Velocity 130.0 cm/s FINDINGS Left Ventricle Normal left ventricular size, systolic function with no regional wall motion abnormalities. Left ventricular ejection fraction is estimated at 70-75 %. Abnormal diastolic function. Right Ventricle Normal right ventricular size and systolic function. Right Atrium Normal right atrial size. Left Atrium Moderately increased left atrial size. Mitral Valve Moderate mitral annular calcification. Mitral valve not well visualized. No mitral valve regurgitation. Aortic Valve Aortic valve not well visualized. No aortic valve stenosis. Tricuspid Valve Tricuspid valve not well visualized. Pulmonic Valve Pulmonic valve not well visualized. Pericardium No pericardial effusion. Aorta Aorta not well visualized. CONCLUSIONS 1. This is a technically difficult study . Utrasound enhancing agent Optison was used per protocol. 2. Normal left ventricular size, systolic function with no regional wall motion abnormalities. Left ventricular ejection fraction is estimated at 70-75 %. Abnormal diastolic function. 3. Normal right ventricular size and systolic function. 4. Direct comparison to previous study dated 08/26/2019 is not possible given to technically difficult study. Polina Alvarenga MD (Electronically Signed) Final Date: 28 February 2021 17:40 S
[2021-02-28 08:51] LABS: Glucose Point of Care 116 mg/dL (70-110)
[2021-02-28] MEDS: sennosides-docusate Tablet 1 TAB PO ×2 (09:10→17:15)
[2021-02-28] MEDS: pantoprazole DR 40 mg Tablet PO (09:11)
[2021-02-28] MEDS: magnesium oxide 400 mg tablet PO ×2 (09:12→17:15)
[2021-02-28] MEDS: digoxin 125 mcg Tablet PO (09:12)
[2021-02-28] MEDS: ondansetron 4 MG Tablet PO (09:12)
[2021-02-28] MEDS: aspirin 81 mg Chew Tablet PO (09:12)
[2021-02-28] MEDS: amoxicillin-clav 500-125 mg Tablet 1 TAB PO ×2 (09:13→20:12)
[2021-02-28] MEDS: hyDRALAzine 50 mg Tablet PO ×3 (09:13→20:12)
[2021-02-28] MEDS: carbidopa-levodopa ER 50-200mg Tablet 1 EACH PO ×2 (09:13→17:16)
--- NOTE | 2021-02-28 10:17 | PC.NURSE ---
Three second pause noted on monitor. Cardizem gtt stopped.
--- NOTE | 2021-02-28 10:56 | PM.PN ---
Subjective Subjective: Interval history: Seen this morning. Patient states he is well enough that he could go home today. He said that incidentally his blood pressure was checked at home it was high and when he came to the ER he was told that he has a high heart rate. He has been asymptomatic and is not reporting any issues this morning. Patient was on a Cardizem drip overnight. He does have Parkinson's disease at baseline which was a lot of artifact on telemetry due to his tremors. Vitals/I&O/Wt Last Vital Signs Temp 98 F 02/28/21 04:00 Pulse 60 02/28/21 14:00 Resp 16 02/28/21 11:00 BP 128/63 02/28/21 11:00 Pulse Ox 97 02/28/21 10:30 02/27/21 02/28/21 02/28/21 22:59 06:59 14:59 Intake Total 190.208 / 190.208 631.667 / 631.667 Output Total 360 / 360 175 / 175 Balance -169.792 / -169.792 456.667 / 456.667 Weight last 48 hrs Weight 102.058 kg Physical Exam Narrative: EXAM NARRATIVE: General: Alert oriented x3, patient seen sitting up in bed appearing comfortable chronically ill-appearing. HEENT: Normocephalic, atraumatic, EOMI, moist mucous membranes, breathing comfortably on nasal cannula. Cardio: Irregularly irregular, normal S1-S2, no gross murmurs Respiratory: Good bilateral air entry, lungs clear to auscultation bilaterally anterior and posterior. No accessory muscle use. Mild wheezing present posterior lung mccartney at the bases. GI: Abdomen soft, nontender, nondistended, bowel sounds + Behavior: Appropriate and cooperative Extremities: Trace lower extremity edema Neuro: Resting tremor noted upper extremities, head, neck, truncal area. Able to move all 4 extremities. Data : 02/28/21 02:02 02/28/21 02:02 Micro: Microbiology 02/28/21 02:08 Blood Culture - Preliminary Blood SPECIMEN COLLECTED 02/28/21 02:02 Blood Culture - Preliminary Blood SPECIMEN COLLECTED A&P Assessment and plan (1) On home oxygen therapy: Status: Chronic (2) Hypertensive urgency: Status: Acute (3) Atrial flutter: Status: Acute Qualifiers: Atrial flutter type: unspecified Qualified Code(s): I48.92 - Unspecified atrial flutter (4) Essential hypertension: Status: Chronic (5) CKD (chronic kidney disease): Status: Chronic Qualifiers: Chronic kidney disease stage: stage 2 (mild) Qualified Code(s): N18.2 - Chronic kidney disease, stage 2 (mild) (6) Coronary artery disease: Status: Chronic Qualifiers: Coronary Disease-Associated Artery/Lesion type: [place] artery [place] vs. transplanted heart: [place] heart Associated angina: without angina Qualified Code(s): I25.10 - Atherosclerotic heart disease of [place] coronary artery without angina pectoris (7) Parkinson's disease: Status: Chronic (8) COPD (chronic obstructive pulmonary disease): Status: Chronic Qualifiers: COPD type: emphysema Emphysema type: unspecified Qualified Code(s): J43.9 - Emphysema, unspecified Additional A&P Information #Hypertensive urgency #Atrial flutter with RVR #History of coronary artery disease status post PCI with stents -At home patient has been on as needed metoprolol and hydralazine. He was on amiodarone in the past as well which was stopped due to patient's atrial fibrillation being chronic. He is on warfarin as well which we will continue. INR is in range. -Patient required Cardizem drip overnight which we will wean off today as his oral medications are added in. He was recently placed on digoxin as an outpatient. He did receive digoxin 250x1 at midnight. ?Did present with hypertensive urgency and received labetalol 10 mg IV x2, Cardizem 10 mg IV x1, metoprolol tartrate 25 mg once in the ER. ?Continue hydralazine 50 mg 3 times daily, metoprolol tartrate 25 mg twice daily. -Patient received digoxin 125 mg oral this morning as well. Heart rate is now well controlled between 60 and 80. Cardizem drip has been turned off. ?Continue digoxin 125 oral daily. ?If patient stays well controlled from atrial fibrillation with RVR and hypertensive standpoint we will plan to discharge in a.m. with close follow-up with cardiology and primary care physician. #Electrolytes ?Potassium 3.5. We will replete ?Magnesium normal 2.3 -Phosphorus low at 2.2, will replete. #Chronic kidney disease -Creatinine at baseline and normal. No acute kidney injury noted. #Chronic pain disorder #Low back pain #Parkinson's disease #Chronic hypoxic respiratory failure on oxygen at home [id number] ?Continue home medications. Continue Sinemet. ?On baseline home oxygen, continue ?Did have a recent COPD exacerbation and has been treated with Augmentin and prednisone by PCP. We will continue the Augmentin to complete a 7-day course. ?Continue chronic narcotic therapy ?Has known arthritis of spine. Denies any pain today. Full code Cardiac diet DVT prophylaxis?patient is on warfarin. Attestations Medical Necessity Statement*: Possible discharge in a.m. Coding Level of Care Code Acute Device Test Engineer for Chg Fwd Diagnoses On home oxygen therapy Z99.81 Hypertensive urgency I16.0 Atrial flutter I48.92 Atrial flutter type: unspecified Essential hypertension I10 CKD (chronic kidney disease) N18.2 Chronic kidney disease stage: stage 2 (mild) Coronary artery disease I25.10 Coronary Disease-Associated Artery/Lesion type: [place] artery [place] vs. transplanted heart: [place] heart Associated angina: without angina Parkinson's disease G20 COPD (chronic obstructive pulmonary disease) J43.9 COPD type: emphysema Emphysema type: unspecified
[2021-02-28 11:30] LABS: Glucose Point of Care 118 mg/dL (70-110)
[2021-02-28] MEDS: perflutren protein-a microsphr 0.22 mg/mL SDV 3 mL IV (14:33)
[2021-02-28] MEDS: potassium chloride oral liq 20 mEq/15 mL UDC 40 MEQ PO (17:14)
[2021-02-28] MEDS: phosphorus 250 mg Tablet PO (17:15)
[2021-02-28 17:40] LABS: Glucose Point of Care 119 mg/dL (70-110)
--- NOTE | 2021-02-28 18:34 | PC.NURSE ---
Shift Note: Pt alert and oriented. Pt started the shift on a Cardizem gtt, heart rate slow, then he had a pause, so Cardizem gtt discontinued this am. Digoxin, Metoprolol and Hydralazine admin today. Lidocaine patch to back helping. Pt has only complained of pain a couple times, he has received Oxy IR twice this shift. He needed Ativan onec. Zanaflex admin at end of this shift , pt stated his restless legs were acing up. SCDs applied, he thinks that helps with his restless leg. He said he takes Requip at home. He has urinated multiple times, less than a 100 ml at a time. He has sat up in chair for part of the afternoon. His here to visit today. Pt requestes to be fed due to his Parkinson Shaking. His heart rate and B/P crept up at end of shift, Metoprolol 5 mg IVP. Frequent safety and comfort rounds continue. Orders and/or nursing care completed as indicated. Patient monitored for response to intervention and treatment(s). Education provided include Cardizem, Digoxin, Metoprolol, Zanaflex, Hydralazine and plan of care. Patient and/or operations representative verbalized understanding of medications and plan of care. Will continue to monitor.
[2021-02-28] MEDS: metoprolol tartrate 1 mg/1 mL SDV 5 mL 5 MG IVP (18:49)
[2021-02-28 20:23] LABS: Glucose Point of Care 133 mg/dL (70-110)
[2021-03-01] VITALS (55 sets, daily range): BP systolic 57–195; BP diastolic 41–120; PULSE 58–120; RESP 10–30; TEMP 36.4–36.9; O2SAT 86–99
[2021-03-01] MEDS: morphine 4 mg/mL SDV 1 mL 2 MG IVP (00:40)
[2021-03-01] MEDS: enoxaparin 40 mg/0.4 mL Syringe SUBCUT ×2 (00:41→23:59)
--- NOTE | 2021-03-01 00:54 | PC.NURSE ---
Patient c/o pain in his lower back, states he normally wears his lidocaine patches for 8 hours, then takes them off for 8 hours. Patient also explained that he takes his medications not according to prescription. Patient AOx4. Educated patient that the medications are to be taken how they are prescribed, and that they should not be taken any other time. Patient offered a one time dose of morphine, but patient declined at first. Explained to patient that it was the only option at this time, and that per the MAR the next medication available would be at approx. 0200. Patient agreed to the morphine dose. Encouraged patient to discuss his pain management and home medication regime with the day shift physician during rounds.
[2021-03-01] MEDS: tizanidine 4 mg Tablet 2 MG PO ×3 (02:50→23:59)
[2021-03-01] MEDS: acetaminophen 325 mg Tablet 650 MG PO ×3 (02:50→23:58)
[2021-03-01 05:10] LABS: Basophils % 0.2 %; Eosinophils % 0.1 %; Hemoglobin 12.9 g/dL (11.7-16.6); Lymphocytes # 2.5 10^3/uL (0.8-4.8); Lymphocytes % 17.2 %; Mean Corpuscular HGB Conc 32.3 g/dL (30.0-36.0); Mean Corpuscular Hemoglobin 30.4 pg (28.0-34.0); Mean Corpuscular Volume 94.1 fl (80-94); Mean Platelet Volume 9.2 fL (7.4-10.4); Monocytes # 1.4 10^3/uL (0.2-0.9); Monocytes % 9.8 %; Neutrophils # 10.43 10^3/uL (1.8-7.7); Neutrophils % 72.4 %; Nucleated Red Blood Cells % 0 %; Platelet Count 272 10^3/cmm (130-400); Red Blood Count 4.25 10^6/uL (4.1-5.3); Red Cell Distribution Width 13.1 % (12.1-15.1); White Blood Count 14.4 10^3/uL (4.0-10.0)
[2021-03-01] MEDS: oxyCODONE IR 30 mg Tablet PO ×4 (05:21→20:40)
[2021-03-01] MEDS: ondansetron 4 MG Tablet PO ×2 (05:24→09:08)
[2021-03-01 05:39] LABS: Anion Gap 19.1 (5-19); Blood Urea Nitrogen 21 mg/dL (8-23); Calcium 8.8 mg/dL (8.5-10.5); Carbon Dioxide 23 mmol/L (22-29); Chloride 96 mmol/L (98-107); Glucose 135 mg/dL (65-115); Magnesium 2.5 mg/dL (1.7-2.3); Osmolality Calculated 283 mOsm/kg (285-295); Potassium 4.1 mmol/L (3.5-5.1); Sodium 134 mmol/L (136-145)
--- NOTE | 2021-03-01 06:28 | PC.NURSE ---
Patient restless all shift, hitting call luevano q30min throughout shift despite hourly roundings. Explained to patient regarding medication administration and proper timing. Patient still c/o pain, restless legs the entire shift. Scheduled and PRN meds given per MAY. Patient stated he wants to go home. Encouraged patient to discuss plans with day shift hospitalist.
[2021-03-01 07:01] LABS: Digoxin 0.9 ng/mL (0.6-1.2)
[2021-03-01 07:48] LABS: Glucose Point of Care 153 mg/dL (70-110)
[2021-03-01] MEDS: ipratropium-albuterol 3 mL Neb INHALATION ×2 (08:14→14:35)
--- NOTE | 2021-03-01 08:22 | PM.PN ---
Subjective Subjective: Interval history: Seen spouting installer today. Patient states he would like to go home as he feels a lot better except that he has back pain which is chronic for him. He was sitting in the recliner. His heart rate has been elevated 120s and 130s all night consistently. Blood pressure also elevated this morning. Cardizem 30 every 6 has been added at this point. We will see patient's response. Vitals/I&O/Wt Last Vital Signs Temp 97.5 F L 03/01/21 09:00 Pulse 65 03/01/21 10:30 Resp 20 H 03/01/21 10:30 BP 57/41 03/01/21 10:30 Pulse Ox 96 03/01/21 10:30 02/28/21 03/01/21 03/01/21 22:59 06:59 14:59 Intake Total 100 / 731.667 0 / 731.667 50 / 50 Output Total 160 / 335 120 / 455 100 / 100 Balance -60 / 396.667 -120 / 276.667 -50 / -50 Weight last 48 hrs Weight 102.058 kg Physical Exam Narrative: EXAM NARRATIVE: General: Alert oriented x3, patient seen sitting up in recliner. Chronically ill-appearing. HEENT: Normocephalic, atraumatic, EOMI, moist mucous membranes, breathing comfortably on nasal cannula. Cardio: Irregularly irregular, normal S1-S2, no gross murmurs Respiratory: Good bilateral air entry, lungs clear to auscultation bilaterally anterior and posterior. No accessory muscle use. GI: Abdomen soft, nontender, nondistended, bowel sounds + Behavior: Appropriate and cooperative Extremities: Trace lower extremity edema Neuro: Resting tremor noted upper extremities, head, neck, truncal area. Able to move all 4 extremities. Data : 03/01/21 04:36 03/01/21 04:36 Micro: Microbiology 02/28/21 02:08 Blood Culture - Preliminary Blood NEGATIVE TO DATE 02/28/21 02:02 Blood Culture - Preliminary Blood NEGATIVE TO DATE A&P Assessment and plan (1) On home oxygen therapy: Status: Chronic (2) Hypertensive urgency: Status: Acute (3) Atrial flutter: Status: Acute Qualifiers: Atrial flutter type: unspecified Qualified Code(s): I48.92 - Unspecified atrial flutter (4) Essential hypertension: Status: Chronic (5) CKD (chronic kidney disease): Status: Chronic Qualifiers: Chronic kidney disease stage: stage 2 (mild) Qualified Code(s): N18.2 - Chronic kidney disease, stage 2 (mild) (6) Coronary artery disease: Status: Chronic Qualifiers: Coronary Disease-Associated Artery/Lesion type: [place] artery [place] vs. transplanted heart: [place] heart Associated angina: without angina Qualified Code(s): I25.10 - Atherosclerotic heart disease of [place] coronary artery without angina pectoris (7) Parkinson's disease: Status: Chronic (8) COPD (chronic obstructive pulmonary disease): Status: Chronic Qualifiers: COPD type: emphysema Emphysema type: unspecified Qualified Code(s): J43.9 - Emphysema, unspecified Additional A&P Information #Hypertensive urgency #Atrial flutter with RVR #History of coronary artery disease status post PCI with stents -At home patient has been on as needed metoprolol and hydralazine. He was on amiodarone in the past as well which was stopped due to patient's atrial fibrillation being chronic. He is on warfarin as well which we will continue. INR is in range. -Did present with hypertensive urgency and received labetalol 10 mg IV x2, Cardizem 10 mg IV x1, metoprolol tartrate 25 mg once in the ER. ?Continue metoprolol tartrate 25 mg twice daily, will stop hydralazine. Start cardizem 30 q6 hours. - Pt loaded with digoxin. Will continue at 125 mg daily. ?If patient stays well controlled from atrial fibrillation with RVR and hypertensive standpoint we will plan to discharge in a.m. with close follow-up with cardiology and primary care physician. #Electrolytes ?Repleted. #Chronic kidney disease -Creatinine at baseline and normal. No acute kidney injury noted. #Chronic pain disorder #Low back pain #Parkinson's disease #Chronic hypoxic respiratory failure on oxygen at home [id number] ?Continue home medications. Continue Sinemet. ?On baseline home oxygen, continue ?Did have a recent COPD exacerbation and has been treated with Augmentin and prednisone by PCP. We will continue the Augmentin to complete a 7-day course. ?Continue chronic narcotic therapy ?Has known arthritis of spine. Denies any pain today. Full code Cardiac diet DVT prophylaxis?patient is on warfarin. Attestations Medical Necessity Statement*: > 24 hour stay. Still uncontrolled atrial fibrillation. Coding Level of Care Code Acute Supervisor Rough End for Chg Fwd Diagnoses On home oxygen therapy Z99.81 Hypertensive urgency I16.0 Atrial flutter I48.92 Atrial flutter type: unspecified Essential hypertension I10 CKD (chronic kidney disease) N18.2 Chronic kidney disease stage: stage 2 (mild) Coronary artery disease I25.10 Coronary Disease-Associated Artery/Lesion type: [place] artery [place] vs. transplanted heart: [place] heart Associated angina: without angina Parkinson's disease G20 COPD (chronic obstructive pulmonary disease) J43.9 COPD type: emphysema Emphysema type: unspecified
[2021-03-01] MEDS: ALPRAZolam 0.5 mg Tablet PO (09:08)
[2021-03-01] MEDS: metoprolol tartrate 25 mg Tablet PO (09:10)
--- NOTE | 2021-03-01 09:15 | PC.NURSE ---
Pt complaining of back pain and his nerves bad, said he didn't not sleep well all night due to his back. Oxy IR and Xanax admin with am meds. Cardizem PO started this am. Hydralazine held due to SBP in 's ( pt also received metoprolol and digoxin) Dr French notified Hydralazine held, Dr Fletcher.
[2021-03-01] MEDS: sennosides-docusate Tablet 1 TAB PO ×2 (09:21→18:02)
[2021-03-01] MEDS: phosphorus 250 mg Tablet PO ×2 (09:21→18:03)
[2021-03-01] MEDS: aspirin 81 mg Chew Tablet PO (09:21)
[2021-03-01] MEDS: carbidopa-levodopa ER 50-200mg Tablet 1 EACH PO ×2 (09:21→18:02)
[2021-03-01] MEDS: pantoprazole DR 40 mg Tablet PO (09:21)
[2021-03-01] MEDS: amoxicillin-clav 500-125 mg Tablet 1 TAB PO ×2 (09:21→20:41)
[2021-03-01] MEDS: insulin lispro 100 unit/1 mL SUBCUT (09:21)
[2021-03-01] MEDS: dilTIAZem 30 mg Tablet PO (09:22)
[2021-03-01] MEDS: digoxin 125 mcg Tablet PO (09:22)
[2021-03-01] MEDS: magnesium oxide 400 mg tablet PO ×2 (09:22→18:01)
[2021-03-01] MEDS: lidocaine 5% Patch 1 PATCH TOPICAL ×2 (09:26→20:40)
--- NOTE | 2021-03-01 10:20 | PC.NURSE ---
Pt reting with eyes closed. Hypotension noted. Dr French, on unit, notified. One liter bolus started
[2021-03-01] MEDS: sodium chloride 0.9% 1,000 ML 999 ML IV (10:26)
--- NOTE | 2021-03-01 10:38 | PC.CHAP ---
Pastoral Care Encounter/Spiritual Assessment Type of Contact [] Declined hand cloth cutter visit [] Patient/Family/Request visit [] Outpatient visit [] Follow-up visit [] Physician referral [] Code/Alert [x] Routine visit [] Staff referral [] Actively dying [] Patient sleeping [] Family support [] [] Out of room [] Palliative care [] [] Receiving care in room [] Pre-surgical visit [] Trauma [] Long length of stay [x] ICU visit [] Other: Relational/Emotional Strength [] Patient feels connected with others/family/visitors/staff [] Distress [] Loneliness/isolation [] Abandonment Spirituality of Patient [] Person of Katelyn [] Attends Presybeterian of their Katelyn [] Believes in Prayer [] Reads Bible or Mu-Ism materials [] There are Spiritual issues to be addressed Mineral Engineer Interventions [x] Prayer [] Active listening [] Non-anxious presence [] Spiritual/emotional support [] Crisis/trauma care [] Spiritual counseling [] Bereavement support [] Provided bereavement packet [] Provided Bible/devotional materials [] Provided toy/stuffed animal, coloring book to patient or family member [] Provided Communion [] Anointing/[place] [] Salvation [x] Completed spiritual assessment [] Other: Impact on Illness or Injury [] Angry [] Fearful [] Anxious [] Often cries [] Exhaustion [] Unable to work [] Unable to attend restoration [] Unable to walk/stand [] Unable to read [] Unable to drive [] Unable to eat/drink [] Unable to sleep [] Unable to be with family [] Patient intubated [] Other: Summary Time spent with patient
--- NOTE | 2021-03-01 11:15 | PC.NURSE ---
No more hypotension noted. NS bolus nearly completed. Dr French notified of improvement. Pt had been asymptomatic throughout hypotensive episode.
--- NOTE | 2021-03-01 11:54 | PC.NURSE ---
Called , Neeta Oneal , to give update. She is on her way in to visit. Will update at bedside.
[2021-03-01 12:24] LABS: Glucose Point of Care 110 mg/dL (70-110)
[2021-03-01] MEDS: lactulose oral liq 20 gm/30 mL UDC PO ×2 (12:31→18:00)
--- NOTE | 2021-03-01 13:00 | PC.NURSE ---
Pt up to BSC. Two peas sized pieces of BM noted. Pt continues to complain of lower back back, occassional nausea. he has been belching today. His appetite down. Will continue to monitor. Lactulose started. If no results soon, Bisacodyl will be admin.
[2021-03-01 16:40] LABS: D Dimer 0.64 ug/mIFEU (0-0.59)
--- NOTE | 2021-03-01 17:04 | CTR_ITS ---
PROCEDURE INFORMATION: Exam: CTA Chest With Contrast Exam date and time: 03/01/2021 5:04 PM Age: 80 years old Clinical indication: Shortness of breath; Prior surgery; Surgery type: Port, stents; Additional info: Rule out pe TECHNIQUE: Imaging protocol: Computed tomographic angiography of the chest with contrast. 3D rendering (Not supervised by radiologist): MIP and/or 3D reconstructed images were created by the technologist. Radiation optimization: All CT scans at this facility use at least one of these dose optimization techniques: automated exposure control; mA and/or kV adjustment per patient size (includes targeted exams where dose is matched to clinical indication); or iterative reconstruction. Contrast material: OMNI 350; Contrast volume: 89 ml; Contrast route: INTRAVENOUS (IV); COMPARISON: CTA Chest-Pulmonary Emb [id number] 01/15/2018 5:01 PM RADIATION DOSE METRICS: Total DLP (mGy-cm): 614.04 FINDINGS: Tubes, catheters and devices: Left chest tunneled Port-A-Cath terminates in the superior vena cava. Pulmonary arteries: Normal. No pulmonary emboli. Aorta: Diffuse atherosclerotic wall plaques. Negative for thoracic aorta aneurysm. Lungs: Coarse reticular interstitial lung change. Mild diffuse bronchial wall thickening. Negative for bronchiectasis. Negative for focal pulmonary consolidation. There is a chronic spiculated posterior right upper lobe pulmonary nodule which is smaller in volume than 01/15/2018. The nodule is about 9 mm transverse diameter; 13 mm prior. Pleural spaces: Unremarkable. No pneumothorax. No pleural effusion. Heart: Unremarkable. No cardiomegaly. No pericardial effusion. Lymph nodes: Unremarkable. No enlarged lymph nodes. Pancreas: Atrophic pancreas. Kidneys and ureters: Bilateral hydronephrosis is present but incompletely assessed. Cortical atrophy of both kidneys, incompletely assessed. Bones/joints: Unremarkable. No acute fracture. Soft tissues: Unremarkable. Other findings: Severe emphysema. CT/CT angio chest PE protcl [id number] IMPRESSION: Negative CT angiogram of the chest. No acute abnormality is identified.
[2021-03-01 17:43] LABS: Glucose Point of Care 127 mg/dL (70-110)
[2021-03-01] MEDS: ondansetron 2 mg/ML SDV 2 mL 4 MG IVP (17:58)
[2021-03-01] MEDS: bisacodyl 5 mg Tablet 10 MG PO (18:00)
--- NOTE | 2021-03-01 18:00 | PC.NURSE ---
Pt belching, complaining of back pain. Doesn't want dinner. Pt assisted up to chair. Heated towel applied to lower back. Bisacodyl admin with second dose of Lactulose. Acetaminophen also admin. Will continue to monitor.
--- NOTE | 2021-03-01 18:28 | PC.NURSE ---
Shift Note: Pt getting testy today. He just wants to sleep. He has been complaining of his back. He is constipated. He has been belching and having nausea today, as well as a poor appetite. Stool softeners and Laxatives administered, No significant amount of BM noted today. His urination amount has slacked off today. His heart rate has varied form 68 to 130's. He did have a hypotensive episode after B/P meds and pain/nerve meds this am, He received a liter bolus. This evening his B/P is high, B/P meds due at 2100. When pt is resting and calm his B/P tends to be WNL, when he is awake ad irritable hypertension noted. Heat applied to his back tonight, he stated it provided some relief. Frequent safety and comfort rounds continue. Orders and/or nursing care completed as indicated. Patient monitored for response to intervention and treatment(s). Education provided includes Lactulose, Bisacodyl, Cardizem, B/P and heart rate control, Constipation and Bowel regime. Patient and/or senior sales representative Medications, and continuing plan of care. Will continue to monitor.
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
[2021-03-01] MEDS: iohexol 350 mg/mL 100 mL Btl IV (20:21)
--- NOTE | 2021-03-01 20:28 | PC.NURSE ---
Patient taken to CT for diagnostic test with two RNs, on monitor. Trip uneventful, tolerated well.
[2021-03-01] MEDS: citalopram 20 mg Tablet 40 MG PO (20:41)
[2021-03-01] MEDS: metoprolol tartrate 50 mg Tablet PO (20:41)
[2021-03-01 20:53] LABS: Glucose Point of Care 151 mg/dL (70-110)
--- NOTE | 2021-03-01 23:56 | PC.NURSE ---
Patient wanting to go home, requesting pain medication, using call light multiple times within a short time frame. Educated again re: medication administration, scheduling, appropriate timing. Patient acknowledged info, refused lactulose dose.
[2021-03-02] VITALS (41 sets, daily range): BP systolic 87–189; BP diastolic 49–123; PULSE 73–119; RESP 14–26; TEMP 36.6–36.9; O2SAT 89–96
--- NOTE | 2021-03-02 00:33 | PC.NURSE ---
Patient argumentative, requesting to get to recliner. Told patient that staff was not available to move him back and forth from the chair to the bed and back as often as he would like, d/t other nursing responsibilities. Patient again argumentative, stating he didn't care and he would do whatever the hell he wanted . Educated patient that he would not be getting out of bed if he would not follow safety rules that are provided in order that he does not harm himself, such as falling. Patient agreed at first, but then was more argumentative and wanted to again get up by himself. After more education and discussion, patient finally agreed to use his call light and to sit in the chair for a period of time that would make the transition out of bed efficient. Call light within reach, bedside table placed over patient for access to patient care items.
[2021-03-02] MEDS: morphine 4 mg/mL SDV 1 mL IVP (00:49)
[2021-03-02] MEDS: oxyCODONE IR 30 mg Tablet PO ×3 (02:23→18:08)
[2021-03-02] MEDS: ipratropium-albuterol 3 mL Neb INHALATION ×3 (02:49→20:42)
[2021-03-02] MEDS: acetaminophen 325 mg Tablet 650 MG PO (06:05)
[2021-03-02 07:21] LABS: Glucose Point of Care 141 mg/dL (70-110)
--- NOTE | 2021-03-02 07:43 | CT_ITS ---
WS: [id number] CT LUMBAR SPINE, noncontrast. HISTORY: low back pain TECHNIQUE: Contiguous 2.5 mm axial imaging are performed. Sagittal and coronal reformats are submitte d and reviewed. All CT scans at [facility] use at least one of these dose optimization techni ques: automated exposure control; mA and/or kV adjustment per patient size (includes targeted exams w here dose is matched to clinical indication); or iterative reconstruction. IV contrast: None DLP: 2558.18 mGy.cm COMPARISON: None available. Asymmetric disc space narrowing with LEFT curvature of the lumbar spine. Vacuum disc phenomenon at al l levels within the disc. There are moderate-sized endplate osteophytes. No acute fracture. 3 mm ante rolisthesis of L5. L1-2: Diffuse asymmetric osteophytosis. Greater osteophyte encroachment into the LEFT foramen. No marcello nosis. L2-3: Diffuse moderate osteophytosis with osteophyte encroachment upon the ventral thecal sac and int o the foramen. Mild central and bilateral subarticular recess stenosis. L3-4: Marked facet joint arthritis on the RIGHT. Osteophytic ridging and disc bulging contributing to mild central and bilateral subarticular recess and foraminal stenosis. Slightly greater disc contact on the RIGHT exiting L3 nerve root. There is significant disc extending into the RIGHT foramen. L4-5: Marked osteophytic ridging and annular disc bulging encroaching upon the ventral thecal sac. Mo derate central, bilateral subarticular recess and foraminal stenosis. L5-S1: Osteophytic ridging encroaching upon the ventral thecal sac. Facet osteophyte on the RIGHT enc roaches into the RIGHT lateral thecal sac. Moderate bilateral foraminal stenosis and mild bilateral s ubarticular recess stenosis and central stenosis. Extensive calcification throughout the aorta. Atherosclerotic plaque with ectasia. Heavy calcificatio n continues into the external iliac arteries. Bilateral retained contrast within the renal pelves, ureters and urinary bladder. Hydroureteronephros is to the urinary bladder. Very distal ureters were not included on this examination of the lumbar sp ine. The urinary bladder is markedly distended with small bladder diverticula. This may be due to irene g standing outlet urethral obstruction. Mildly complex cyst upper pole LEFT kidney measures 2.5 cm. P erinephric stranding around each kidney. Variable density within each kidney cannot be evaluated adeq uately on this examination. CT/CT lumbar spine wo con* [id number] IMPRESSION: 1. Multilevel advanced spondylosis throughout the lumbar spine with multiple l evels of significant stenosis. No fracture. 2. Moderate central, bilateral subarticular recess and foraminal stenosis at L 4-5. 3. Mild central and bilateral subarticular recess stenosis at L2-3. 4. Disc contacts the RIGHT exiting L3 nerve root. 5. Moderate bilateral hydroureteronephrosis. The distal ureters are not includ ed but the urinary bladder is distended with IV contrast that was given on a pr ior examination from 03/01/2021. Long-standing outlet obstruction should be cons idered. Evaluation for urinary bladder neoplasm/calcification obstructing the d istal ureter is also possibility.
[2021-03-02 09:21] LABS: Basophils % 0.2 %; Eosinophils # 0.1 10^3/uL (0.0-0.8); Eosinophils % 0.5 %; Hematocrit 38.6 % (42.0-52.0); Hemoglobin 12.6 g/dL (11.7-16.6); Lymphocytes % 14.2 %; Mean Corpuscular HGB Conc 32.6 g/dL (30.0-36.0); Mean Corpuscular Hemoglobin 31.4 pg (28.0-34.0); Mean Corpuscular Volume 96.3 fl (80-94); Mean Platelet Volume 9.4 fL (7.4-10.4); Monocytes % 13.7 %; Neutrophils # 10.12 10^3/uL (1.8-7.7); Neutrophils % 70.9 %; Nucleated Red Blood Cells % 0 %; Platelet Count 236 10^3/cmm (130-400); Red Blood Count 4.01 10^6/uL (4.1-5.3); Red Cell Distribution Width 13.1 % (12.1-15.1); White Blood Count 14.3 10^3/uL (4.0-10.0)
[2021-03-02] MEDS: lidocaine 5% Patch 1 PATCH TOPICAL (09:22)
[2021-03-02] MEDS: insulin lispro 100 unit/1 mL SUBCUT ×2 (09:23→20:31)
[2021-03-02] MEDS: sennosides-docusate Tablet 1 TAB PO ×2 (09:28→18:01)
[2021-03-02] MEDS: dilTIAZem 60 mg Tablet 120 MG PO (09:28)
[2021-03-02] MEDS: metoprolol tartrate 25 mg Tablet PO (09:28)
[2021-03-02] MEDS: amoxicillin-clav 500-125 mg Tablet 1 TAB PO (09:28)
[2021-03-02] MEDS: aspirin 81 mg Chew Tablet PO (09:28)
[2021-03-02] MEDS: pantoprazole DR 40 mg Tablet PO (09:28)
[2021-03-02] MEDS: digoxin 125 mcg Tablet PO (09:29)
[2021-03-02] MEDS: magnesium oxide 400 mg tablet PO ×2 (09:29→18:01)
[2021-03-02] MEDS: carbidopa-levodopa ER 50-200mg Tablet 1 EACH PO ×2 (09:29→18:01)
[2021-03-02] MEDS: sodium chloride 0.9% 1,000 ML 100 ML IV ×2 (09:30→20:13)
[2021-03-02 09:42] LABS: Blood Urea Nitrogen 24 mg/dL (8-23); Calcium 8.2 mg/dL (8.5-10.5); Carbon Dioxide 23 mmol/L (22-29); Chloride 96 mmol/L (98-107); Glucose 149 mg/dL (65-115); Magnesium 2.7 mg/dL (1.7-2.3); Osmolality Calculated 275 mOsm/kg (285-295); Sodium 129 mmol/L (136-145)
[2021-03-02 09:48] LABS: Anion Gap 14.3 (5-19); Potassium 4.3 mmol/L (3.5-5.1)
--- NOTE | 2021-03-02 09:52 | P.PN_ITS ---
Subjective Subjective: Interval history: Heart rate slightly under control however would like it to be improved. Blood pressure is not low normal range Medications: Medication Review Details: I personally reviewed home medication list and medications received day of admission thus far. Vitals/I&O/Wt Last Vital Signs Temp 98 F 03/02/21 04:00 Pulse 83 03/02/21 09:29 Resp 23 H 03/02/21 09:32 BP 168/105 03/02/21 05:00 Pulse Ox 96 03/02/21 09:32 03/01/21 03/02/21 03/02/21 22:59 06:59 14:59 Intake Total 330 / 580 120 / 700 Output Total 75 / 175 60 / 235 Balance 255 / 405 60 / 465 Physical Exam Narrative: EXAM NARRATIVE: GENERAL: Patient is sleepy NECK: No jugular vein distension. HEENT: No cyanosis. No icterus. No pallor. HEART: Irregularly irregular S1 and S2. No murmur, rub or gallop. LUNGS: Clear to auscultate bilaterally. ABDOMEN: Soft, nontender and nondistended. Positive bowel sounds. No guarding, rebound or tenderness. CENTRAL NERVOUS SYSTEM: Grossly nonfocal. EXTREMITIES: Lower extremities without edema bilaterally. Data : 03/02/21 09:05 03/02/21 09:05 A&P Assessment and plan (1) A-fib: I will increase metoprolol to 50 mg twice a day we will add Cardizem 120 mg in the morning. Continue digoxin. We will continue to monitor. If he does not slows down over next 24 to 48-hour I am planning to proceed with transesophageal echo guided electrical cardioversion after ruling out clot in the left atrial appendage I will add Cardizem 120 mg today will reduce metoprolol to 25 mg in the morning and continue to 50 mg in the evening continue digoxin. We will also give him some IV fluid today if over next 24 hours patient do not slow down plan to cardiovert him after ruling out atrial appendage or atrial clot with transesophageal echocardiogram hopefully tomorrow Status: Chronic Qualifiers: Atrial fibrillation type: unspecified chronic Qualified Code(s): I48.20 - Chronic atrial fibrillation, unspecified (2) Hypertensive urgency: Stable. Continue to monitor Status: Acute (3) Diastolic heart failure: Well compensated Status: Chronic Qualifiers: Heart failure chronicity: chronic Qualified Code(s): I50.32 - Chronic diastolic (congestive) heart failure (4) Coronary artery disease: Stable. Continue to monitor Status: Chronic Qualifiers: Coronary Disease-Associated Artery/Lesion type: [place] artery [place] vs. 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 transplanted heart: [place] heart Associated angina: without angina
--- NOTE | 2021-03-02 10:30 | PC.NURSE ---
While assisting pt nickolas to bed this am, pt required more prompts than he has needed previously. He was moving much slower. He stated he was awake when asked but it appeared he was nodding off while up with walker.
[2021-03-02 11:54] LABS: Glucose Point of Care 117 mg/dL (70-110)
[2021-03-02] MEDS: bisacodyl 5 mg Tablet 10 MG PO (12:27)
[2021-03-02] MEDS: lactulose oral liq 20 gm/30 mL UDC PO ×2 (12:27→18:01)
[2021-03-02] MEDS: piperacillin-tazobactam 3.375 GM in sodium chloride 0.9% (plus) 50 ML IV ×2 (12:27→20:13)
--- NOTE | 2021-03-02 13:30 | PC.NURSE ---
Torres cathter inserted, see assessment. Pt stated he has immediate relief . My back feels better already, no more pain.'
--- NOTE | 2021-03-02 16:06 | PM.PN ---
Subjective Subjective: Interval history: Seen this AM. Pt reports back pain that is not improving. CT lumbar spine has been ordered. He is able to walk with a walker. He states he cannot stay in the hospital and wants to go home but does understand that he is here due to his heart rate and blood pressure. Constipated still with no BM. Refused lactulose this AM. He did have a tiny BM with 2 pellets out. Vitals/I&O/Wt Last Vital Signs Temp 98 F 03/02/21 12:00 Pulse 99 03/02/21 14:46 Resp 20 H 03/02/21 14:46 BP 122/82 03/02/21 13:00 Pulse Ox 92 03/02/21 14:46 03/02/21 03/02/21 03/02/21 06:59 14:59 22:59 Intake Total 120 / 700 550 / 550 Output Total 60 / 235 905 / 905 Balance 60 / 465 -355 / -355 Physical Exam Narrative: EXAM NARRATIVE: General: Alert oriented x3, patient seen sitting up in recliner. Chronically ill-appearing. HEENT: Normocephalic, atraumatic, EOMI, moist mucous membranes, breathing comfortably on nasal cannula. Cardio: Irregularly irregular, normal S1-S2, no gross murmurs Respiratory: Good bilateral air entry, lungs clear to auscultation bilaterally anterior and posterior. No accessory muscle use. GI: Abdomen soft, nontender, nondistended, bowel sounds + Behavior: Appropriate and cooperative Extremities: Trace lower extremity edema Neuro: Resting tremor noted upper extremities, head, neck, truncal area. Able to move all 4 extremities. Straight leg raise negative. Urinary Catheter Management^: Corbin: Cath Placed During This Visit: yes Urinary Catheter Date of Insertion: 03/02/21 Urinary Catheter Time of Insertion: 12:45 Data : 03/02/21 09:05 03/02/21 09:05 A&P Assessment and plan (1) On home oxygen therapy: Status: Chronic (2) Hypertensive urgency: Status: Acute (3) Atrial flutter: Status: Acute Qualifiers: Atrial flutter type: unspecified Qualified Code(s): I48.92 - Unspecified atrial flutter (4) Essential hypertension: Status: Chronic (5) CKD (chronic kidney disease): Status: Chronic Qualifiers: Chronic kidney disease stage: stage 2 (mild) Qualified Code(s): N18.2 - Chronic kidney disease, stage 2 (mild) (6) Coronary artery disease: Status: Chronic Qualifiers: Coronary Disease-Associated Artery/Lesion type: [place] artery [place] vs. transplanted heart: [place] heart Associated angina: without angina Qualified Code(s): I25.10 - Atherosclerotic heart disease of [place] coronary artery without angina pectoris (7) Parkinson's disease: Status: Chronic (8) COPD (chronic obstructive pulmonary disease): Status: Chronic Qualifiers: COPD type: emphysema Emphysema type: unspecified Qualified Code(s): J43.9 - Emphysema, unspecified Additional A&P Information #Hypertensive urgency #Atrial flutter with RVR #History of coronary artery disease status post PCI with stents -At home patient has been on as needed metoprolol and hydralazine. He was on amiodarone in the past as well which was stopped due to patient's atrial fibrillation being chronic. He is on warfarin as well which we will continue. INR is in range. -Did present with hypertensive urgency and received labetalol 10 mg IV x2, Cardizem 10 mg IV x1, metoprolol tartrate 25 mg once in the ER. ?Continue metoprolol tartrate 25 mg in AM and 50 mg at night. Continue cardizem long acting as per cardio recs. - Pt loaded with digoxin. Will continue at 125 mg daily. - If afib uncontrolled despite intervention, cardio plans to do FRED and cardioversion. Will follow recs #Bladder outlet obstruction with b/l hydrouteronephrosis and perinephric stranding, possible pyelonephritis #Acute urinary retention. - afebrile - corbin placed drained 780 cc urine, - Will start zosyn - order urine culture - WBC count [id number] - BCx NTD - Will discuss with urology. #Electrolytes ?Repleted. #Chronic kidney disease -Creatinine at baseline and normal. No acute kidney injury noted. #Chronic pain disorder #Low back pain #Parkinson's disease #Chronic hypoxic respiratory failure on oxygen at home [id number] ?Continue home medications. Continue Sinemet. ?On baseline home oxygen, continue ?Did have a recent COPD exacerbation and has been treated with Augmentin and prednisone by PCP. - CT lumbar spine showed b/l hydrouteronephrosis with possible bladder outlet obstruction and perinephric stranding b/l. Will place corbin catheter and discuss with urology. CT lumbar spine shows; - Moderate central, bilateral subarticular recess and foraminal stenosis at L4-5. 3. Mild central and bilateral subarticular recess stenosis at L2-3. 4. Disc contacts the RIGHT exiting L3 nerve root. - Will discuss with Dr. Barba. ?Continue chronic narcotic therapy ?Has known arthritis of spine. Denies any pain today. Full code Cardiac diet DVT prophylaxis?patient is on warfarin. 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 transplanted heart: [place] heart Associated angina: without angina Parkinson's disease G20 COPD (chronic obstructive pulmonary disease) J43.9 COPD type: emphysema Emphysema type: unspecified
--- NOTE | 2021-03-02 16:47 | PM.MISC ---
Miscellaneous Note Note: Urology courtesy note: Requested by Dr. French to review his CT scan. Findings consistent with bladder out obstruction. Bilateral hydronephrosis and hydroureter with distended bladder. Contrast seen in the topography images of the lumbar study is residual from a prior CT scan with contrast. Catheter was placed with about 700 cc. Back pain was improved. Recommendations: Initiate TAMSULOSIN 0.4 mg p.o. nightly if blood pressure can tolerate it Maintain Torres cath Follow-up in my office in approximately 2 weeks for voiding trial cystoscopy [facility] instruction if necessary
[2021-03-02 17:19] LABS: Glucose Point of Care 121 mg/dL (70-110)
--- NOTE | 2021-03-02 18:01 | PC.ADMIT ---
[address] [facility] Admission Note: The patient,Salas Oneal,80 y/o, was given written information regarding hospital policies, unit procedures and contact persons. Patient's smoking status: former smoker. Vital Signs - 8 hr 03/02/21 10:30 03/02/21 11:00 03/02/21 12:00 Temperature 98 F Pulse Rate 117 H 73 78 Respiratory Rate 19 H 14 18 Blood Pressure 93/49 93/49 87/60 Pulse Oximetry 89 L 94 95 03/02/21 13:00 03/02/21 14:00 03/02/21 14:46 Temperature Pulse Rate 92 99 99 Respiratory Rate 23 H 20 H Blood Pressure 122/82 Pulse Oximetry 92
--- NOTE | 2021-03-02 19:09 | PC.NURSE ---
Shift Note: Pt feeling much better at end of shift per pt. Lumbar CT done this am. Hydroureteronephrosis seen, catheter placed immediately after lunch. Pt stated his back pain immediately improved and his neck pain is no longer. His blood sugars have been controlled,if he needs insulin in has only been 2 units. Cardiac medications adjusted today. Heart rate and B/P has been better controlled ( more so after corbin placed). Bisacodyl admin again today with the lactulose and senna. So far only BM smear noted this shift. Osyn started. IV fluids started today, 100ml.hr. Urine output 1500 ml. He had been increasingly incontinent of urine the past couple days. Possible FRED and Cardioversion tomorrow. Frequent safety and comfort rounds continue. Orders and/or nursing care completed as indicated. Patient monitored for response to intervention and treatment(s). Education provided includes CT of lumbar, corbin placement, urine cultures, urinary retention, FRED and cardioversion, metoprolol and Cardizem. Patient and/or agency sales representative verbalized understanding of continueing plan of care and medications. Pt and appreciating relief from corbin for pt.. Will continue to monitor.
[2021-03-02] MEDS: citalopram 20 mg Tablet 40 MG PO (20:13)
[2021-03-02] MEDS: metoprolol tartrate 50 mg Tablet PO (20:13)
[2021-03-02 20:28] LABS: Glucose Point of Care 147 mg/dL (70-110)
[2021-03-03] VITALS (36 sets, daily range): BP systolic 85–167; BP diastolic 46–116; PULSE 58–107; RESP 13–25; TEMP 36.3–37; O2SAT 83–99
[2021-03-03] MEDS: enoxaparin 40 mg/0.4 mL Syringe SUBCUT ×2 (00:14→22:59)
[2021-03-03] MEDS: lactulose oral liq 20 gm/30 mL UDC PO ×5 (00:14→22:59)
[2021-03-03] MEDS: oxyCODONE IR 30 mg Tablet PO ×4 (00:14→22:59)
[2021-03-03] MEDS: tizanidine 4 mg Tablet 2 MG PO ×2 (02:38→12:55)
[2021-03-03] MEDS: ipratropium-albuterol 3 mL Neb INHALATION ×3 (03:00→21:09)
[2021-03-03 05:22] LABS: Basophils % 0.2 %; Eosinophils # 0.2 10^3/uL (0.0-0.8); Eosinophils % 1.1 %; Hematocrit 34.3 % (42.0-52.0); Hemoglobin 10.9 g/dL (11.7-16.6); Lymphocytes # 2.1 10^3/uL (0.8-4.8); Lymphocytes % 15.1 %; Mean Corpuscular HGB Conc 31.8 g/dL (30.0-36.0); Mean Corpuscular Hemoglobin 30.4 pg (28.0-34.0); Mean Corpuscular Volume 95.8 fl (80-94); Mean Platelet Volume 9.8 fL (7.4-10.4); Monocytes # 1.8 10^3/uL (0.2-0.9); Monocytes % 13.3 %; Neutrophils # 9.56 10^3/uL (1.8-7.7); Neutrophils % 69.9 %; Nucleated Red Blood Cells % 0 %; Platelet Count 212 10^3/cmm (130-400); Red Blood Count 3.58 10^6/uL (4.1-5.3); Red Cell Distribution Width 13.2 % (12.1-15.1); White Blood Count 13.7 10^3/uL (4.0-10.0)
[2021-03-03] MEDS: piperacillin-tazobactam 3.375 GM in sodium chloride 0.9% (plus) 50 ML IV ×3 (05:29→20:22)
[2021-03-03 05:53] LABS: Blood Urea Nitrogen 21 mg/dL (8-23); Calcium 8.1 mg/dL (8.5-10.5); Carbon Dioxide 26 mmol/L (22-29); Chloride 102 mmol/L (98-107); Glucose 120 mg/dL (65-115); Magnesium 2.6 mg/dL (1.7-2.3); Osmolality Calculated 284 mOsm/kg (285-295); Sodium 135 mmol/L (136-145)
[2021-03-03] MEDS: sodium chloride 0.9% 1,000 ML 100 ML IV ×2 (06:22→20:29)
[2021-03-03 07:37] LABS: Glucose Point of Care 149 mg/dL (70-110)
[2021-03-03] MEDS: lidocaine 5% Patch 1 PATCH TOPICAL (08:28)
[2021-03-03] MEDS: sennosides-docusate Tablet 1 TAB PO ×2 (08:29→17:35)
[2021-03-03] MEDS: magnesium oxide 400 mg tablet PO ×2 (08:29→17:35)
[2021-03-03] MEDS: insulin lispro 100 unit/1 mL SUBCUT ×2 (08:29→12:21)
[2021-03-03] MEDS: digoxin 125 mcg Tablet PO (08:30)
[2021-03-03] MEDS: carbidopa-levodopa ER 50-200mg Tablet 1 EACH PO ×2 (08:30→17:35)
[2021-03-03] MEDS: metoprolol tartrate 25 mg Tablet PO (08:30)
[2021-03-03] MEDS: aspirin 81 mg Chew Tablet PO (08:31)
[2021-03-03] MEDS: dilTIAZem 60 mg Tablet 120 MG PO (08:31)
[2021-03-03] MEDS: pantoprazole DR 40 mg Tablet PO (08:31)
--- NOTE | 2021-03-03 09:15 | P.PN_ITS ---
Subjective Subjective: Interval history: Seen this morning. Patient states that he is feeling a lot better after the Corbin catheter was placed and his back pain has reduced. I talked to him about the possibility of doing an MRI for his back. His CAT scan results were discussed with Dr. Barba. Dr. Rebolledo recommended to do an MRI of his lumbar spine and then have the patient follow-up as an outpatient with him. Patient is agreeable to the plan for today. Vitals are stable heart rate is better. He offers no other complaints at this time. Vitals/I&O/Wt Last Vital Signs Temp 97.3 F L 03/03/21 16:00 Pulse 58 L 03/03/21 17:27 Resp 17 03/03/21 17:10 BP 91/59 03/03/21 16:00 Pulse Ox 98 03/03/21 17:10 03/03/21 03/03/21 03/03/21 06:59 14:59 22:59 Intake Total 1290 / 3330 1862.291 / 9606.089 9636.709 / 3555.000 Output Total 500 / 2130 275 / 275 Balance 790 / 1200 1862.291 / 6565.564 3303.709 / 3280.000 Physical Exam Narrative: EXAM NARRATIVE: General: Alert oriented x3, patient seen sitting up in recliner. Chronically ill-appearing. HEENT: Normocephalic, atraumatic, EOMI, moist mucous membranes, breathing comfortably on nasal cannula. Keeps right eye closed mostly and has left eye open when he talks to you. Cardio: Irregularly irregular, normal S1-S2, no gross murmurs Respiratory: Good bilateral air entry, lungs clear to auscultation bilaterally anterior and posterior. No accessory muscle use. GI: Abdomen soft, nontender, nondistended, bowel sounds + Behavior: Appropriate and cooperative Extremities: Trace lower extremity edema Neuro: Resting tremor noted upper extremities, head, neck, truncal area. Able t o move all 4 extremities. Straight leg raise negative. Patient able to lift both his legs high up into the ER and has good strength bilaterally in lower extremities. Denies any pain while doing so. Also able to walk with a walker. Corbin catheter in place draining clear yellow urine. Urine output 500 cc Urinary Catheter Management^: Corbin: Cath Placed During This Visit: yes Reason for Continuing Indwelling Catheter: Accurate Measurement of Urinary Output in Critically Ill Patients Urinary Catheter Date of Insertion: 03/02/21 Urinary Catheter Time of Insertion: 12:45 Data : 03/03/21 04:33 03/03/21 04:33 Micro: Microbiology 03/02/21 13:00 Urine Culture - Preliminary Urine Catheterized Yeast A&P Assessment and plan (1) On home oxygen therapy: Status: Chronic (2) Hypertensive urgency: Status: Acute (3) Atrial flutter: Status: Acute Qualifiers: Atrial flutter type: unspecified Qualified Code(s): I48.92 - Unspecified atrial flutter (4) Essential hypertension: Status: Chronic (5) CKD (chronic kidney disease): Status: Chronic Qualifiers: Chronic kidney disease stage: stage 2 (mild) Qualified Code(s): N18.2 - Chronic kidney disease, stage 2 (mild) (6) Coronary artery disease: Status: Chronic Qualifiers: Coronary Disease-Associated Artery/Lesion type: [place] artery [place] vs. transplanted heart: [place] heart Associated angina: without angina Qualified Code(s): I25.10 - Atherosclerotic heart disease of [place] coronary artery without angina pectoris (7) Parkinson's disease: Status: Chronic (8) COPD (chronic obstructive pulmonary disease): Status: Chronic Qualifiers: COPD type: emphysema Emphysema type: unspecified Qualified Code(s): J43.9 - Emphysema, unspecified Additional A&P Information #Hypertensive urgency #Atrial flutter with RVR #History of coronary artery disease status post PCI with stents -At home patient has been on as needed metoprolol and hydralazine. He was on amiodarone in the past as well which was stopped due to patient's atrial fibrillation being chronic. He is on warfarin as well which we will continue. INR is in range. -Did present with hypertensive urgency and received labetalol 10 mg IV x2, Cardizem 10 mg IV x1, metoprolol tartrate 25 mg once in the ER. ?Continue metoprolol tartrate 25 mg in AM and 50 mg at night. Continue cardizem long acting as per cardio recs. - Pt loaded with digoxin. Will continue at 125 mg daily. - If afib uncontrolled despite intervention, cardio plans to do FRED and cardioversion. Will follow recs #Bladder outlet obstruction with b/l hydrouteronephrosis and perinephric stranding, possible pyelonephritis #Acute urinary retention. - afebrile - corbin placed drained 780 cc urine, -Continue Zosyn for now. - order urine culture. Result is pending. - WBC count [id number] yesterday. Down to 13.7 today. - BCx NTD - Will discuss with urology. Dr. Perera reviewed patient's CT scan images. He is recommended to keep the Corbin in and see patient as an outpatient. We will continue IV antibiotics for now. #Electrolytes ?Repleted. #Chronic kidney disease -Creatinine at baseline and normal. No acute kidney injury noted. #Chronic pain disorder #Low back pain #Parkinson's disease #Chronic hypoxic respiratory failure on oxygen at home [id number] ?Continue home medications. Continue Sinemet. ?On baseline home oxygen, continue ?Did have a recent COPD exacerbation and has been treated with Augmentin and prednisone by PCP. - CT lumbar spine showed b/l hydrouteronephrosis with possible bladder outlet obstruction and perinephric stranding b/l. Will place corbin catheter and discuss with urology. CT lumbar spine shows; - Moderate central, bilateral subarticular recess and foraminal stenosis at L4- 5. 3. Mild central and bilateral subarticular recess stenosis at L2-3. 4. Disc contacts the RIGHT exiting L3 nerve root. Dr. Barba recommended to get a lumbar MRI spine. We will order that for today. Patient to follow-up outpatient when he gets discharged with orthopedic surgery. ?Continue chronic narcotic therapy ?Has known arthritis of spine. Denies any pain today. Full code Cardiac diet DVT prophylaxis?patient is on warfarin. transfer to floor from icu Attestations Medical Necessity Statement*: Greater than 48-hour stay. Coding Level of Care Code Acute [employer] Hold for [facility] Fwd Diagnoses On home oxygen therapy Z99.81 Hypertensive urgency I16.0 Atrial flutter I48.92 Atrial flutter type: unspecified Essential hypertension I10 CKD (chronic kidney disease) N18.2 Chronic kidney disease stage: stage 2 (mild) Coronary artery disease I25.10 Coronary Disease-Associated Artery/Lesion type: [place] artery [place] vs. transplanted heart: [place] heart Associated angina: without angina Parkinson's disease G20 COPD (chronic obstructive pulmonary disease) J43.9 COPD type: emphysema Emphysema type: unspecified
--- NOTE | 2021-03-03 09:38 | MR_ITS ---
WS: [id number] MRI LUMBAR SPINE NONCONTRAST HISTORY: Back pain, lumbar stenosis. COMPARISON: None available. TECHNIQUE: Sagittal and axial multisequence imaging is submitted. Incomplete evaluation of the lumbar spine. Patient was unable to complete this examination and reques avila the study be terminated early. Severe cervical and thoracic spondylosis. There is extensive disc space narrowing with osteophytes an d scoliosis in the cervical and thoracic spine. Straightening of the normal lumbar lordosis. No marrow edema or fracture. There is severe disc space narrowing and desiccation with endplate osteophytes and facet arthritis. Conus terminates normally at L1-2 disc level. No T2 axial imaging submitted. The evaluation for stenosis is limited. L1-L2: Diffuse annular disc bulging and osteophytic ridging. Moderate bilateral foraminal stenosis, L EFT greater than RIGHT. L2-L3: Diffuse osteophytic ridging and annular disc bulging. There is at least mild central stenosis with bilateral foraminal and subarticular recess stenosis. L3-L4: Mild annular disc bulging encroaching into the subarticular recesses. Moderate RIGHT foraminal stenosis. Mild central and subarticular recess stenosis. L4-L5: Diffuse annular disc bulging and osteophytic ridging. Suspect there may be a disc protrusion e xtending into the LEFT lateral recess. Moderate to severe bilateral foraminal subarticular recess marcello nosis and central stenosis. L5-S1: Central disc protrusion with facet joint arthritis. Moderate to severe bilateral foraminal marcello nosis. Hydronephrosis appears to have resolved since the prior study. May be due to catheterization of the u rinary bladder. MR/MR lumbar spine wo con* [id number] IMPRESSION: 1. Limited evaluation of the lumbar spine as patient could not continue and co mplete the MRI evaluation. 2. There is extensive moderate to severe lumbar spondylosis. 3. Moderate to severe bilateral foraminal, subarticular recess stenosis and c entral stenosis at L4-5. 4. Moderate bilateral foraminal stenosis, LEFT greater than RIGHT at L1-2. 5. Mild central, bilateral foraminal subarticular recess stenosis at L2-3. 6. Moderate RIGHT foraminal stenosis at L3-4 with mild central and subarticula r recess stenosis. 7. Moderate to severe bilateral foraminal stenosis at L5-S1.
[2021-03-03 11:59] LABS: Glucose Point of Care 347 mg/dL (70-110)
--- NOTE | 2021-03-03 12:35 | PC.SOCIAL ---
Pg 2 IMM Explained to pt Pg 2 IMM. No questions voiced. Provided pt a copy. Initialed, dated, & timed a copy & placed in chart.
[2021-03-03] MEDS: acetaminophen 325 mg Tablet 650 MG PO ×2 (12:54→20:21)
--- NOTE | 2021-03-03 14:33 | PC.NURSE ---
Patient taken by ambulance to MRI. IV medications paused, see MAY.
[2021-03-03 15:51] LABS: Glucose Point of Care 101 mg/dL (70-110)
[2021-03-03] MEDS: sodium chloride 0.9% 1,000 ML 500 ML IV (16:22)
--- NOTE | 2021-03-03 16:34 | PM.PN ---
Subjective Subjective: Interval history: Heart rate is stable now Medications: Reviewed: Yes Medication Review Details: I personally reviewed home medication list and medications received day of admission thus far. Vitals/I&O/Wt Last Vital Signs Temp 97.3 F L 03/03/21 16:00 Pulse 60 03/03/21 16:00 Resp 20 H 03/03/21 16:00 BP 91/59 03/03/21 16:00 Pulse Ox 99 03/03/21 16:00 03/03/21 03/03/21 03/03/21 06:59 14:59 22:59 Intake Total 1290 / 3330 1862.291 / 1862.291 211.667 / 2073.958 Output Total 500 / 2130 Balance 790 / 1200 1862.291 / 1862.291 211.667 / 2073.958 Physical Exam Narrative: EXAM NARRATIVE: GENERAL: Patient is awake oriented NECK: No jugular vein distension. HEENT: No cyanosis. No icterus. No pallor. HEART: Regular S1 and S2. No murmur, rub or gallop. LUNGS: Clear to auscultate bilaterally. ABDOMEN: Soft, nontender and nondistended. Positive bowel sounds. No guarding, rebound or tenderness. CENTRAL NERVOUS SYSTEM: Grossly nonfocal. EXTREMITIES: Lower extremities without edema bilaterally. Urinary Catheter Management^: Torres: Cath Placed During This Visit: yes Reason for Continuing Indwelling Catheter: Accurate Measurement of Urinary Output in Critically Ill Patients Urinary Catheter Date of Insertion: 03/02/21 Urinary Catheter Time of Insertion: 12:45 Data : 03/03/21 04:33 03/03/21 04:33 Micro: Microbiology 03/02/21 13:00 Urine Culture - Preliminary Urine Catheterized Yeast A&P Assessment and plan (1) A-fib: I will increase metoprolol to 50 mg twice a day we will add Cardizem 120 mg in the morning. Continue digoxin. We will continue to monitor. If he does not slows down over next 24 to 48-hour I am planning to proceed with transesophageal echo guided electrical cardioversion after ruling out clot in the left atrial appendage I will add Cardizem 120 mg today will reduce metoprolol to 25 mg in the morning and continue to 50 mg in the evening continue digoxin. We will also give him some IV fluid today if over next 24 hours patient do not slow down plan to cardiovert him after ruling out atrial appendage or atrial clot with transesophageal echocardiogram hopefully tomorrow Appear to be stable from cardiac perspective now continue 120 mg of Cardizem in the morning 25 mg of metoprolol in the morning and 50 mg of metoprolol in the evening along with digoxin. Status: Chronic Qualifiers: Atrial fibrillation type: unspecified chronic Qualified Code(s): I48.20 - Chronic atrial fibrillation, unspecified (2) Hypertensive urgency: Controlled. Continue current Status: Acute (3) Diastolic heart failure: Well compensated Status: Chronic Qualifiers: Heart failure chronicity: chronic Qualified Code(s): I50.32 - Chronic diastolic (congestive) heart failure (4) Coronary artery disease: Stable. Continue to monitor Status: Chronic Qualifiers: Coronary Disease-Associated Artery/Lesion type: [place] artery [place] vs. transplanted heart: [place] heart Associated angina: without angina Qualified Code(s): I25.10 - Atherosclerotic heart disease of [place] coronary artery without angina pectoris Attestations Medical Necessity Statement*: Patient require continuation hospitalization for above defined care. 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 transplanted heart: [place] heart Associated angina: without angina
--- NOTE | 2021-03-03 16:41 | XRR_ITS ---
PROCEDURE INFORMATION: Exam: XR Chest Exam date and time: 03/03/2021 4:41 PM Age: 80 years old Clinical indication: Other: Elevated BP; Additional info: Change in patient status TECHNIQUE: Imaging protocol: XR of the chest. Views: 1 view. COMPARISON: CR (CHEST, ) 02/27/2021 7:30 PM FINDINGS: Tubes, catheters and devices: Unchanged left subclavian medication port with catheter tip over the SVC. Lungs: Low lung volumes. Diffuse prominent interstitial markings rib with streaky right basilar opacities increased from prior. No lobar consolidation. Pleural spaces: Unremarkable. No pleural effusion. No pneumothorax. Heart/Mediastinum: Cardiac silhouette upper normal. Bones/joints: Degenerative changes of the bilateral shoulders. XR/XR chest 1V portable [id number] IMPRESSION: Bilateral increased interstitial markings and streaky right basilar opacities, correlate for atypical pneumonia.
--- NOTE | 2021-03-03 16:42 | ECG_ITS ---
[facility] Test Date: 2021-03-03 Pat Name: Salas Oneal Department: Room: [facility] Gender: Male Anvilsmith: : 1940 Requested By: Julieta French Order Number: [id number] Nguyễn MD: Edward House M.D. Measurements Intervals [place] Rate: 58 P: MI: QRS: 7 QRSD: 114 T: 96 QT: 461 QTc: 454 Interpretive Statements SINUS BRADYCARDIA MODERATE INTRAVENTRICULAR CONDUCTION DELAY [110+ ms QRS DURATION] NONSPECIFIC ST & T-WAVE ABNORMALITY Compared to ECG 02/28/2021 09:33:49 Intraventricular conduction delay now present T-wave abnormality now present Prolonged QT interval no longer present Electronically Signed On 03-04-2021 7:36:32 [employer]ON ELECT[employer]ICIAN by Edward House M.D. [email or web address]
--- NOTE | 2021-03-03 16:54 | PC.NURSE ---
Patient came back from [facility] via stretcher with EMS around 1530. in room. EMS stated that the patient got diaphoretic close to the [facility]. EMS stated that the patient also had some low blood pressures. EMS stated that the patient received a skin tear when patient was transferred from bed to stretcher. Patient was diaphoretic, heart rate in 60s, oxygen at 4 L nasal canula, 99% oxygen saturation, blood sugar 101, blood pressure 97/53, temperature of 97.3, alert and oriented, and sleepy. Patient denies feelings of doom. Called Dr. French about patient status change around 1533. Orders to give patient 500 cc bolus of normal saline and flushing urinary catheter. Got patient a heated blanket. Patient took blanket off, stating that he feels hot. Dr. French called to get updates. Gave orders for EKG, chest xray, and troponin around 1640. Rounded on patient and patient stated that he had a headache. Treated pain, see MAR.
[2021-03-03 17:52] LABS: Troponin T (5th) Once 73 ng/L (0-15)
[2021-03-03 18:19] LABS: Glucose Point of Care 107 mg/dL (70-110)
--- NOTE | 2021-03-03 18:20 | PC.NURSE ---
Shift Note Frequent safety and comfort rounds continue. Orders and/or nursing care completed as indicated. Patient monitored for response to intervention and treatment(s). Education provided includes new results, medications, care plan, and upcoming procedures. Patient and/or customer development representative verbalized understanding. Patient is no longer diaphoretic. Patient is sleeping in bed with TV on.
[2021-03-03 20:06] LABS: Troponin 5 2HR 64.54 ng/L (0-15)
[2021-03-03 20:06] LABS: Glucose Point of Care 127 mg/dL (70-110)
[2021-03-03] MEDS: metoprolol tartrate 50 mg Tablet PO (20:21)
[2021-03-03] MEDS: citalopram 20 mg Tablet 40 MG PO (20:21)
[2021-03-04] VITALS (48 sets, daily range): BP systolic 71–187; BP diastolic 33–103; PULSE 31–120; RESP 13–26; TEMP 36.6–36.7; O2SAT 87–99
[2021-03-04 00:02] LABS: Troponin 5 6HR 55.72 ng/L (0-15)
[2021-03-04 00:06] LABS: Troponin 5 6HR Delta -17.28 ng/L (0-12)
[2021-03-04 05:23] LABS: Basophils % 0.2 %; Eosinophils % 0.1 %; Hematocrit 32.7 % (42.0-52.0); Hemoglobin 10.4 g/dL (11.7-16.6); Lymphocytes # 1.4 10^3/uL (0.8-4.8); Mean Corpuscular HGB Conc 31.8 g/dL (30.0-36.0); Mean Corpuscular Volume 97.6 fl (80-94); Mean Platelet Volume 9.8 fL (7.4-10.4); Monocytes # 1.6 10^3/uL (0.2-0.9); Monocytes % 9.9 %; Neutrophils # 12.67 10^3/uL (1.8-7.7); Neutrophils % 80.2 %; Nucleated Red Blood Cells % 0 %; Platelet Count 193 10^3/cmm (130-400); Red Blood Count 3.35 10^6/uL (4.1-5.3); Red Cell Distribution Width 13.3 % (12.1-15.1); White Blood Count 15.8 10^3/uL (4.0-10.0)
[2021-03-04] MEDS: oxyCODONE IR 30 mg Tablet PO ×3 (05:29→20:20)
[2021-03-04] MEDS: lactulose oral liq 20 gm/30 mL UDC PO ×4 (05:29→23:21)
[2021-03-04] MEDS: piperacillin-tazobactam 3.375 GM in sodium chloride 0.9% (plus) 50 ML IV ×3 (05:29→21:23)
[2021-03-04 05:41] LABS: Blood Urea Nitrogen 23 mg/dL (8-23); Calcium 7.8 mg/dL (8.5-10.5); Carbon Dioxide 24 mmol/L (22-29); Chloride 100 mmol/L (98-107); Glucose 126 mg/dL (65-115); Magnesium 3.7 mg/dL (1.7-2.3); Osmolality Calculated 283 mOsm/kg (285-295); Sodium 134 mmol/L (136-145)
--- NOTE | 2021-03-04 06:05 | PC.NURSE ---
Shift Note Frequent safety and comfort rounds continue. Orders and/or nursing care completed as indicated. Patient monitored for response to intervention and treatment(s).
[2021-03-04 06:53] LABS: Glucose Point of Care 138 mg/dL (70-110)
[2021-03-04] MEDS: lidocaine 5% Patch 1 PATCH TOPICAL (07:59)
[2021-03-04] MEDS: aspirin 81 mg Chew Tablet PO (07:59)
[2021-03-04] MEDS: magnesium oxide 400 mg tablet PO ×2 (07:59→17:17)
[2021-03-04] MEDS: dilTIAZem 60 mg Tablet 120 MG PO (07:59)
[2021-03-04] MEDS: carbidopa-levodopa ER 50-200mg Tablet 1 EACH PO ×2 (08:00→17:17)
[2021-03-04] MEDS: pantoprazole DR 40 mg Tablet PO (08:00)
[2021-03-04] MEDS: metoprolol tartrate 25 mg Tablet PO (08:00)
[2021-03-04] MEDS: sennosides-docusate Tablet 1 TAB PO ×2 (08:00→17:17)
[2021-03-04] MEDS: digoxin 125 mcg Tablet PO (08:00)
--- NOTE | 2021-03-04 08:24 | P.PN_ITS ---
Subjective Subjective: Interval history: Seen this morning. Patient's heart rate and blood pressure are stable today. Patient does not offer any complaints but he still has not had a bowel movement. He complains his back pain is improved. Corbin catheter present draining dark-colored urine. I will check a CK today. Vitals/I&O/Wt Last Vital Signs Temp 98 F 03/04/21 08:00 Pulse 43 L 03/04/21 14:46 Resp 22 H 03/04/21 14:46 BP 132/81 03/04/21 08:00 Pulse Ox 95 03/04/21 14:46 03/04/21 03/04/21 03/04/21 06:59 14:59 22:59 Intake Total 50 / 4705.000 174.763 / 174.763 240 / 414.763 Output Total 375 / 650 375 / 375 Balance -325 / 4055.000 174.763 / 174.763 -135 / 39.763 Physical Exam Narrative: EXAM NARRATIVE: General: Alert oriented x3, patient seen laying in bed appearing comfortable chronically ill-appearing. HEENT: Normocephalic, atraumatic, EOMI, moist mucous membranes, breathing comfortably on nasal cannula. Keeps right eye closed mostly and has left eye open when he talks to you. Cardio: Irregularly irregular, normal S1-S2, no gross murmurs Respiratory: Good bilateral air entry, lungs clear to auscultation bilaterally anterior and posterior. No accessory muscle use. GI: Abdomen soft, nontender, nondistended, bowel sounds + Behavior: Appropriate and cooperative Extremities: Trace lower extremity edema Neuro: Resting tremor noted upper extremities, head, neck, truncal area. Able to move all 4 extremities. Straight leg raise negative. Patient able to lift both his legs high up into the ER and has good strength bilaterally in lower extremities. Denies any pain while doing so. Also able to walk with a walker. Corbin catheter in place draining dark yellow urine. Urine output 750 cc Urinary Catheter Management^: Corbin: Cath Placed During This Visit: yes Reason for Continuing Indwelling Catheter: Accurate Measurement of Urinary Output in Critically Ill Patients Urinary Catheter Date of Insertion: 03/02/21 Urinary Catheter Time of Insertion: 12:45 Data : 03/04/21 13:50 03/04/21 13:50 Micro: Microbiology 03/04/21 14:34 Blood Culture - Preliminary Blood SPECIMEN COLLECTED 03/04/21 14:28 Blood Culture - Preliminary Blood SPECIMEN COLLECTED 03/02/21 13:00 Urine Culture - Preliminary Urine Catheterized Yeast A&P Assessment and plan (1) On home oxygen therapy: Status: Chronic (2) Hypertensive urgency: Status: Acute (3) Atrial flutter: Status: Acute Qualifiers: Atrial flutter type: unspecified Qualified Code(s): I48.92 - Unspecified atrial flutter (4) Essential hypertension: Status: Chronic (5) CKD (chronic kidney disease): Status: Chronic Qualifiers: Chronic kidney disease stage: stage 2 (mild) Qualified Code(s): N18.2 - Chronic kidney disease, stage 2 (mild) (6) Coronary artery disease: Status: Chronic Qualifiers: Coronary Disease-Associated Artery/Lesion type: [place] artery [place] vs. transplanted heart: [place] heart Associated angina: without angina Q ualified Code(s): I25.10 - Atherosclerotic heart disease of [place] coronary artery without angina pectoris (7) Parkinson's disease: Status: Chronic (8) COPD (chronic obstructive pulmonary disease): Status: Chronic Qualifiers: COPD type: emphysema Emphysema type: unspecified Qualified Code(s): J43.9 - Emphysema, unspecified Additional A&P Information #Hypertensive urgency #Atrial flutter with RVR #History of coronary artery disease status post PCI with stents -At home patient has been on as needed metoprolol and hydralazine. He was on amiodarone in the past as well which was stopped due to patient's atrial fibrillation being chronic. He is on warfarin as well which we will continue. INR is in range. -Did present with hypertensive urgency and received labetalol 10 mg IV x2, Cardizem 10 mg IV x1, metoprolol tartrate 25 mg once in the ER. ?Continue metoprolol tartrate 25 mg in AM and 50 mg at night. Continue cardizem long acting as per cardio recs. - Pt loaded with digoxin. Will continue at 125 mg daily. - If afib uncontrolled despite intervention, cardio plans to do FRED and cardioversion. Will follow recs #Bladder outlet obstruction with b/l hydrouteronephrosis and perinephric st randing, possible pyelonephritis #Acute urinary retention. - afebrile - corbin placed drained 780 cc urine, -Continue Zosyn for now. - order urine culture. Result is pending. - WBC count 40003 yesterday. Down to 13.7 today. - BCx NTD - Will discuss with urology. Dr. Perera reviewed patient's CT scan images. He is recommended to keep the Corbin in and see patient as an outpatient. We will continue IV antibiotics for now. #Electrolytes ?Repleted. #Chronic kidney disease -Creatinine at baseline and normal. No acute kidney injury noted. #Chronic pain disorder #Low back pain #Parkinson's disease #Chronic hypoxic respiratory failure on oxygen at home vaguon-xmf-waccs ?Continue home medications. Continue Sinemet. ?On baseline home oxygen, continue ?Did have a recent COPD exacerbation and has been treated with Augmentin and prednisone by PCP. - CT lumbar spine showed b/l hydrouteronephrosis with possible bladder outlet obstruction and perinephric stranding b/l. Will place corbin catheter and discuss with urology. CT lumbar spine shows; - Moderate central, bilateral subarticular recess and foraminal stenosis at L4- 5. 3. Mild central and bilateral subarticular recess stenosis at L2-3. 4. Disc contacts the RIGHT exiting L3 nerve root. Dr. Barba recommended to get a lumbar MRI spine. We will order that for today. Patient to follow-up outpatient when he gets discharged with orthopedic surgery. ?Continue chronic narcotic therapy ?Has known arthritis of spine. Denies any pain today. #Severe constipation -He has been given lactulose 20 every 6 hours, docusate senna, 3 enema so far but has not had a bowel movement. Manual disimpaction was also attempted but no results. ?CT abdomen pelvis today showed possible small bowel obstruction with transition point in the ileum. Case was discussed with Dr. Tse over the phone who reviewed the images. He is advised to do mag citrate once now and once in the morning. He does not see evidence of bowel obstruction at this time. Also patient has bowel sounds present and is denying any abdominal pain. We will do the mag citrate today and reassess patient in the morning. I will discussed with Dr. Tse again in the morning. Full code Cardiac diet DVT prophylaxis?patient is on warfarin. Attestations Medical Necessity Statement*: Greater than 48-hour stay. Coding Level of Care Code Acute Supervisor Stave Cutting for Chg Fwd Diagnoses On home oxygen therapy Z99.81 Hypertensive urgency I16.0 Atrial flutter I48.92 Atrial flutter type: unspecified Essential hypertension I10 CKD (chronic kidney disease) N18.2 Chronic kidney disease stage: stage 2 (mild) Coronary artery disease I25.10 Coronary Disease-Associated Artery/Lesion type: [place] artery [place] vs. transplanted heart: [place] heart Associated angina: without angina Parkinson's disease G20 COPD (chronic obstructive pulmonary disease) J43.9 COPD type: emphysema Emphysema type: unspecified
[2021-03-04] MEDS: ipratropium-albuterol 3 mL Neb INHALATION (09:03)
--- NOTE | 2021-03-04 10:06 | PC.CHAP ---
Pastoral Care Encounter/Spiritual Assessment Type of Contact [] Declined aircraft tool maker visit [] Patient/Family/Request visit [] Outpatient visit [] Follow-up visit [] Physician referral [] Code/Alert [] Routine visit [XX] Staff referral [] Actively dying [] Patient sleeping [] Family support [] [] Out of room [] Palliative care [] [] Receiving care in room [] Pre-surgical visit [] Trauma [] Long length of stay [] ICU visit [] Other: Relational/Emotional Strength [XX] Patient feels connected with others/family/visitors/staff [] Distress [] Loneliness/isolation [] Abandonment Spirituality of Patient [XX] Person of Katelyn [] Attends Catholic of their Katelyn [XX] Believes in Prayer [] Reads Bible or Yarsanism materials [] There are Spiritual issues to be addressed Associate Sales Interventions [XX] Prayer [] Active listening [XX] Non-anxious presence [] Spiritual/emotional support [] Crisis/trauma care [] Spiritual counseling [] Bereavement support [] Provided bereavement packet [] Provided Bible/devotional materials [] Provided toy/stuffed animal, coloring book to patient or family member [] Provided Communion [] Anointing/[place] [] Salvation [XX] Completed spiritual assessment [] Other: Impact on Illness or Injury [] Angry [] Fearful [] Anxious [] Often cries [] Exhaustion [] Unable to work [] Unable to attend spiritism [] Unable to walk/stand [] Unable to read [] Unable to drive [] Unable to eat/drink [] Unable to sleep [] Unable to be with family [] Patient intubated [] Other: Summary Pt not up for visiting but answered aircraft tool maker's questions related to aircraft tool maker's spiritual assessment. Pt welcomed prayer, which was offered. Pt relaxed and fell asleep. Time spent with patient 5 mins
--- NOTE | 2021-03-04 11:15 | PM.PN ---
Subjective Subjective: Interval history: Today patient heart rate is elevated he said he is constipated and would like to defecate Medications: Reviewed: Yes Medication Review Details: I personally reviewed home medication list and medications received day of admission thus far. Vitals/I&O/Wt Last Vital Signs Temp 98 F 03/04/21 08:00 Pulse 90 03/04/21 09:08 Resp 18 03/04/21 09:08 BP 132/81 03/04/21 08:00 Pulse Ox 98 03/04/21 09:08 03/03/21 03/04/21 03/04/21 22:59 06:59 14:59 Intake Total 2792.709 / 4655.000 50 / 4705.000 Output Total 275 / 275 375 / 650 Balance 2517.709 / 4380.000 -325 / 4055.000 Physical Exam Narrative: EXAM NARRATIVE: GENERAL: Patient is alert, awake and oriented x3. NECK: No jugular vein distension. HEENT: No cyanosis. No icterus. No pallor. HEART: Irregularly irregular S1 and S2. No murmur, rub or gallop. LUNGS: Clear to auscultate bilaterally. ABDOMEN: Soft, nontender and nondistended. Positive bowel sounds. No guarding, rebound or tenderness. CENTRAL NERVOUS SYSTEM: Grossly nonfocal. EXTREMITIES: Lower extremities without edema bilaterally. Urinary Catheter Management^: Torres: Cath Placed During This Visit: yes Reason for Continuing Indwelling Catheter: Accurate Measurement of Urinary Output in Critically Ill Patients Urinary Catheter Date of Insertion: 03/02/21 Urinary Catheter Time of Insertion: 12:45 Data : 03/04/21 05:00 03/04/21 05:00 Micro: Microbiology 03/02/21 13:00 Urine Culture - Preliminary Urine Catheterized Yeast A&P Assessment and plan (1) A-fib: I will increase metoprolol to 50 mg twice a day we will add Cardizem 120 mg in the morning. Continue digoxin. We will continue to monitor. If he does not slows down over next 24 to 48-hour I am planning to proceed with transesophageal echo guided electrical cardioversion after ruling out clot in the left atrial appendage I will add Cardizem 120 mg today will reduce metoprolol to 25 mg in the morning and continue to 50 mg in the evening continue digoxin. We will also give him some IV fluid today if over next 24 hours patient do not slow down plan to cardiovert him after ruling out atrial appendage or atrial clot with transesophageal echocardiogram hopefully tomorrow Appear to be stable from cardiac perspective now continue 120 mg of Cardizem in the morning 25 mg of metoprolol in the morning and 50 mg of metoprolol in the evening along with digoxin. Continue current regimen hopefully once bowels are regulated will feel better Status: Chronic Qualifiers: Atrial fibrillation type: unspecified chronic Qualified Code(s): I48.20 - Chronic atrial fibrillation, unspecified (2) Hypertensive urgency: Mildly elevated but mostly due to constipation hopefully once it improves blood pressure will be stable Status: Acute (3) Diastolic heart failure: Patient is well compensated Status: Chronic Qualifiers: Heart failure chronicity: chronic Qualified Code(s): I50.32 - Chronic diastolic (congestive) heart failure (4) Coronary artery disease: Appear to be stable from a coronary disease perspective. Status: Chronic Qualifiers: Coronary Disease-Associated Artery/Lesion type: [place] artery [place] vs. transplanted heart: [place] heart Associated angina: without angina Qualified Code(s): I25.10 - Atherosclerotic heart disease of [place] coronary artery without angina pectoris Attestations Medical Necessity Statement*: Patient require continuation hospitalization for above defined care. Coding Level of Care Code Established Pt Acute [employer]ried Salt for Obie Phillip Patient Type Established History Detailed Exam Detailed Medical Decision Making Moderate Complexity Diagnoses A-fib I48.20 Atrial fibrillation type: unspecified chronic Hypertensive urgency I16.0 Diastolic heart failure I50.32 Heart failure chronicity: chronic Coronary artery disease I25.10 Coronary Disease-Associated Artery/Lesion type: [place] artery [place] vs. transplanted heart: [place] heart Associated angina: without angina
[2021-03-04 11:19] LABS: Glucose Point of Care 196 mg/dL (70-110)
[2021-03-04] MEDS: azithromycin 500 MG in sodium chloride 0.9% 250 ML 250 MG IV (11:26)
[2021-03-04] MEDS: insulin lispro 100 unit/1 mL SUBCUT ×2 (11:27→17:16)
[2021-03-04] MEDS: Fleet Enema 133 mL Enema PR (11:43)
[2021-03-04 13:46] LABS: ABG PCO2 50.4 mmHg (35-45); Alveolar-Arterial Oxygen Gradi 15.3 mmHg (5-10); Arterial Blood Gas Hematocrit 31.4 % (42-52); Base Excess ABG -1.9 mmol/L (-2.0-2.0); Blood Gas Allen Test Pos; Blood Gas Operator Identificat MONRO; Blood Gas Sample Site Radial, right; Blood Gas Sample Type Arterial; HCO3 ABG 24.8 mmol/L (22-26); HGB O2 Sat 93.9 % (95-100); Ionized Calcium Level - ABG 1.2 mmol/L (1.1-1.4); Methemoglobin 0.7 % (0.4-1.5); Oxygen Device NC; Oxygen Saturation ABG 95.5; PO2 ABG 78.2 mmHg (80.0-100.0); Potassium Level - ABG 3.9 mmol/L (3.5-5.0); Total Hemoglobin 10.3 g/dL (14-18)
--- NOTE | 2021-03-04 14:03 | ECG_ITS ---
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 Measurements Intervals [place] Rate: 118 P: 60 VT: 187 QRS: -14 QRSD: 132 T: 107 QT: 320 QTc: 449 Interpretive Statements Possible SINUS TACHYCARDIA versus a flutter with a 2-1 block INTRAVENTRICULAR CONDUCTION DELAY [130+ ms QRS DURATION] INFERIOR MYOCARDIAL INFARCTION , PROBABLY OLD [40+ ms Q WAVE AND/OR ST/T ABNORMALITY IN II/aVF] INTERPRETATION BASED ON A DEFAULT AGE OF 40 YEARS Compared to ECG 03/03/2021 17:22:07 Myocardial infarct finding now present Sinus bradycardia no longer present T-wave abnormality no longer present Electronically Signed On 03-04-2021 16:51:47 LOGISTICS TECH by Jose Ness M.D. [id number] f
--- NOTE | 2021-03-04 14:16 | CTR_ITS ---
PROCEDURE INFORMATION: Exam: CTA Chest With Contrast Exam date and time: 03/04/2021 2:16 PM Age: 80 years old Clinical indication: Fever; Shortness of breath; Additional info: Shock, look for source of infection? TECHNIQUE: Imaging protocol: Computed tomographic angiography of the chest with contrast. 3D rendering (Not supervised by radiologist): MIP and/or 3D reconstructed images were created by the technologist. Radiation optimization: All CT scans at this facility use at least one of these dose optimization techniques: automated exposure control; mA and/or kV adjustment per patient size (includes targeted exams where dose is matched to clinical indication); or iterative reconstruction. Contrast material: OMNI 350; Contrast volume: 95 ml; Contrast route: INTRAVENOUS (IV); COMPARISON: CT angio chest PE protcl [id number] 03/01/2021 8:10 PM RADIATION DOSE METRICS: Total DLP (mGy-cm): 2048 FINDINGS: Pulmonary arteries: No evidence of pulmonary embolism. Aorta: Unremarkable. No aortic aneurysm. No aortic dissection. Lungs: Emphysema and scarring. Patchy right lower lobe base consolidation. Expiratory phase imaging with areas of airway collapse the bilateral lower lobes and debris on the right. Pleural spaces: Unremarkable. No pneumothorax. No pleural effusion. Heart: Unremarkable. No cardiomegaly. No pericardial effusion. Lymph nodes: There are scattered mildly enlarged right mediastinal and hilar nodes measuring up to 15 mm in short axis. Bones/joints: No acute or aggressive osseous lesion. Soft tissues: Unremarkable. PROCEDURE INFORMATION: Exam: CT Abdomen And Pelvis With Contrast Exam date and time: 03/04/2021 2:16 PM Age: 80 years old Clinical indication: Fever; Shortness of breath; Additional info: Shock, look for source of infection? TECHNIQUE: Imaging protocol: Computed tomography of the abdomen and pelvis with contrast. Radiation optimization: All CT scans at this facility use at least one of these dose optimization techniques: automated exposure control; mA and/or kV adjustment per patient size (includes targeted exams where dose is matched to clinical indication); or iterative reconstruction. Contrast material: OMNI 350; Contrast volume: 95 ml; Contrast route: INTRAVENOUS (IV); COMPARISON: CT angio chest PE protcl [id number] 03/01/2021 8:10 PM RADIATION DOSE METRICS: Total DLP (mGy-cm): 2048 FINDINGS: Liver: Normal. No mass. Gallbladder and bile ducts: Few punctate dependent calcified gallstones. No evidence of cholecystitis or biliary obstruction. Pancreas: Pancreatic atrophy. No mass or inflammation. Pancreatic duct non dilated. Spleen: Normal. No splenomegaly. Adrenal glands: Normal. No mass. Kidneys and ureters: Renal atrophy. No hydronephrosis or calculi. Bilateral hypodense simple appearing renal cysts, largest measuring 3.1 cm at the left upper pole. Stomach and bowel: There is a large amount of stool within the sigmoid colon and rectum, with the rectum measuring up to 8.5 cm in diameter. Mild surrounding stranding. Fluid-filled loops of ileum measure up to 4 cm in caliber, with apparent transition point in the right lower quadrant (as seen on scrolling through images 37 through 55 series 3). The proximal small bowel is normal in caliber. No pneumatosis. Left colon diverticulosis. No evidence of active diverticulitis. Appendix: No evidence of appendicitis. Intraperitoneal space: No free air. No significant fluid collection. Vasculature: Extensive atherosclerotic calcification. No aortic aneurysm. Lymph nodes: Unremarkable. No enlarged lymph nodes. Urinary bladder: Empty bladder with Torres catheter in place. No stones. Reproductive: Prostate normal in size. Bones/joints: Lumbar degenerative changes. No acute or aggressive osseous lesion. Soft tissues: Unremarkable. CT/CT angio chest w abd pel w con IMPRESSION: 1. Patchy right lower lobe base consolidation slightly increased from prior, correlate for pneumonia. Airways thickening with luminal narrowing and debris on the right. 2. Emphysema. 3. Right mediastinal and hilar adenopathy. IMPRESSION: 1. Suspected partial distal small-bowel obstruction with transition point within the ileum. Limited evaluation without enteric contrast. No evidence of pneumatosis or perforation at this time. No abscess. 2. Large amount of stool within the sigmoid and rectum with mild associated mesenteric stranding, correlate for fecal impaction. 3. Diverticulosis without evidence of active diverticulitis. 4. Uncomplicated cholelithiasis. 5. Other chronic and incidental findings as described. COMMENTS: Consistent with the [place] [employer]'s Incidental Findings Committee white paper (J Am Elle Radiol 2018): Any incidental renal lesion less than 1 cm or classified as too small to characterize, or any incidental cystic renal lesion characterized as simple-appearing, is likely benign. No follow-up imaging is recommended for these lesions per consensus recommendations based on imaging criteria.
[2021-03-04 14:24] LABS: Basophils % 0.2 %; Eosinophils # 0.1 10^3/uL (0.0-0.8); Eosinophils % 0.3 %; Hematocrit 35.3 % (42.0-52.0); Hemoglobin 11.1 g/dL (11.7-16.6); Lymphocytes % 18.8 %; Mean Corpuscular HGB Conc 31.4 g/dL (30.0-36.0); Mean Corpuscular Hemoglobin 31.4 pg (28.0-34.0); Mean Corpuscular Volume 99.7 fl (80-94); Mean Platelet Volume 9.6 fL (7.4-10.4); Monocytes # 2.1 10^3/uL (0.2-0.9); Monocytes % 10.1 %; Neutrophils # 14.79 10^3/uL (1.8-7.7); Neutrophils % 70.2 %; Nucleated Red Blood Cells % 0 %; Platelet Count 244 10^3/cmm (130-400); Red Blood Count 3.54 10^6/uL (4.1-5.3); Red Cell Distribution Width 13.4 % (12.1-15.1); White Blood Count 21.1 10^3/uL (4.0-10.0)
[2021-03-04 14:34] LABS: D Dimer 1.71 ug/mIFEU (0-0.59)
[2021-03-04 14:38] LABS: Alanine Aminotransferase < 5 U/L (0-41); Albumin Level 3.1 g/dL (3.5-5.2); Alkaline Phosphatase 65 IU/L (40-130); Anion Gap 13.4 (5-19); Aspartate Amino Transferase 9 U/L (0-40); Blood Urea Nitrogen 23 mg/dL (8-23); Carbon Dioxide 25 mmol/L (22-29); Chloride 99 mmol/L (98-107); Globulin 2.6 g/dL (1.3-4.6); Glucose 175 mg/dL (65-115); Magnesium 3.2 mg/dL (1.7-2.3); Osmolality Calculated 286 mOsm/kg (285-295); Phosphorus 3.1 mg/dL (2.5-4.5); Potassium 3.4 mmol/L (3.5-5.1); Sodium 134 mmol/L (136-145); Total Bilirubin 0.4 mg/dL (0.15-1.2); Total Protein 5.7 g/dL (6.6-8.7)
[2021-03-04 14:39] LABS: Lactic Sepsis W/Reflex 2.9 mmol/L (0.5-2.2)
--- NOTE | 2021-03-04 14:43 | USCV_ITS ---
Salas Oneal Age: 80 Gender: M : 1940 Exam Date: 03/04/2021 16:27 Ordering Phys: Julieta French MD Technologist: Sugey Michel Exam Location: [facility] Indication: Assess EF, look for PE, D-sign, shock BP: 132 / 81 HR: 58 Rhythm: Sinus Technical Quality: Technically difficult study MEASUREMENTS (Male / Female) Normal Values 2D ECHO LV Diastolic Diameter PLAX 2.4 cm 4.2 - 5.9 / 3.9 - 5.3 cm LV Systolic Diameter PLAX 1.4 cm IVS Diastolic Thickness 2.2 cm 0.6 - 1.0 / 0.6 - 0.9 cm IVS Systolic Thickness 1.9 cm LVPW Diastolic Thickness 0.7 cm 0.6 - 1.0 / 0.6 - 0.9 cm LVPW Systolic Thickness 0.7 cm LV Ejection Fraction 2D Teich 73.5 % LV Ejection Fraction MOD 2C 52.2 % LV Ejection Fraction 2C AL 52.4 % FINDINGS Left Ventricle Normal left ventricular size and systolic function, EF 64 %. No regional wall motion abnormalities. Right Ventricle The right ventricle is normal in size and function. Right Atrium The right atrium is normal in size. Left Atrium Left atrium, upper limit of normal size Mitral Valve Thickened mitral valve. Aortic Valve Thickened aortic valve. Tricuspid Valve No gross abnormalities noted Pulmonic Valve No gross abnormalities noted Pericardium Normal pericardium without effusion. Aorta Normal ascending aorta dimension. CONCLUSIONS Normal left ventricular size and systolic function, EF 64 %. No regional wall motion abnormalities. Thickened mitral valve. Thickened aortic valve. Left atrium appears to be upper limit of normal size. No Intracardiac masses No Pericardial effusion Compared to the study from 08/26/2019, there may not be a significant change Dr Jose Ness MD [facility] (Electronically Signed) Final Date: 04 March 2021 17:07 S
[2021-03-04 14:44] LABS: Procalcitonin 0.17 ng/mL (0-0.5)
[2021-03-04 14:45] LABS: Digoxin 0.9 ng/mL (0.6-1.2)
[2021-03-04 15:16] LABS: Reflex Lactate Order REFLEX LACTIC ORDERD
--- NOTE | 2021-03-04 15:45 | ECG_ITS ---
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 Measurements Intervals [place] Rate: 43 P: MA: QRS: -9 QRSD: 114 T: 154 QT: 459 QTc: 389 Interpretive Statements ATRIAL FIBRILLATION WITH SLOW VENTRICULAR RESPONSE MODERATE INTRAVENTRICULAR CONDUCTION DELAY [110+ ms QRS DURATION] ST DEVIATION AND MODERATE T-WAVE ABNORMALITY, CONSIDER LATERAL ISCHEMIA [-0.1+ mV T WAVE IN I/aVL/V5/V6] INTERPRETATION BASED ON A DEFAULT AGE OF 40 YEARS Compared to ECG 03/04/2021 13:41:57 T-wave abnormality now present Possible ischemia now present Sinus tachycardia no longer present Myocardial infarct finding no longer present Electronically Signed On 03-04-2021 16:54:58 TELECOMMUNICATION TOWER TECHNICIAN by Jose Ness M.D. [id number] f
[2021-03-04] MEDS: iohexol 350 mg/mL 100 mL Btl IV (15:53)
[2021-03-04 17:06] LABS: Glucose Point of Care 201 mg/dL (70-110)
[2021-03-04] MEDS: vancomycin 1,500 MG/300 ML PIGGYBACK 200 MG IV (17:16)
[2021-03-04 17:59] LABS: Lactic Acid level (Lactate) 1.3 mmol/L (0.5-2.2)
--- NOTE | 2021-03-04 18:07 | PC.NURSE ---
at approx 1330...pt began having pauses noted on monitor..up to 4 seconds...then bradycardia into 30's.bp 60/ by doppler.dr diaz notified and arrived rapidly.pt's mental status deteriorated and color changed-pallor.rapid response called at 1337. at 1341 0.5 mg atropine given iv push.no increase in heart rate noted.dr rai arrived .normal saline bolus began.1 mg epinephrine given at 1342...this increased heart rate into low 100's...but quickly decreased into 40's.bp remained very soft..so levophed drip instituted at 5 mcg/min..and quickly titrated up to 10 mcg/min.bp rebounded.glucagon 1 mg given im at 1402.pt had a few episodes of heart rate dropping in to 40's, but hr quickly came back up.at approx 1540..pt taken to cat scan via bed for ct of chest.levophed eventually weaned off at 1700.p's mental status slowly improved through day..oriented now to person and place.pt is forgetful.. i have to urinate ..forgetting that he has a corbin catheter in place.
[2021-03-04 18:33] LABS: SARS Covid-2 Antigen Negative (Negative)
--- NOTE | 2021-03-04 20:00 | P.EN_ITS ---
Event Note Event Note: Rapid Response Note:
--- NOTE | 2021-03-04 20:00 | PM.EVENT ---
Event Note Event Note: Rapid Response Note:
[2021-03-04 20:12] LABS: Creatine Phosphokinase 21 U/L (39-308)
[2021-03-04] MEDS: magnesium citrate Btl 296 mL PO ×2 (21:00→22:32)
[2021-03-04] MEDS: citalopram 20 mg Tablet 40 MG PO (21:13)
[2021-03-04] MEDS: ondansetron 2 mg/ML SDV 2 mL 4 MG IVP (21:13)
[2021-03-04] MEDS: potassium chloride oral liq 20 mEq/15 mL UDC 40 MEQ PO (21:41)
[2021-03-04] MEDS: acetaminophen 325 mg Tablet 650 MG PO (22:58)
--- NOTE | 2021-03-04 23:11 | PC.NURSE ---
Patient moved closer to nurse's station. Patient's bed alarm is on. Patient stated what are those people doing in my house. I stated, those are nurses. He stated what are those nurses doing in my house? I stated, you are in the hospital. Patient states, oh, ya, I forgot. Patient drank half of mag citrate and vomited large amount. Gave patient a little bit of time to recover, gave PRN Zofran, and attempt to give Mag citrate again. Patient drank about half of the dose and vomited large amount again. Patient is unable to tolerate. Patient did not receive dose of Mag citrate without vomiting quickly after. Dr. Emerson notified. Patient's heart rate 120s A-fib. Dr. Emerson notified.
[2021-03-04] MEDS: enoxaparin 40 mg/0.4 mL Syringe SUBCUT (23:21)
[2021-03-05] VITALS (20 sets, daily range): BP systolic 137–179; BP diastolic 92–99; PULSE 88–124; RESP 15–23; TEMP 36.3–37.2; O2SAT 93–97
[2021-03-05] MEDS: oxyCODONE IR 30 mg Tablet PO ×2 (02:49→09:13)
[2021-03-05] MEDS: ipratropium-albuterol 3 mL Neb INHALATION ×3 (02:50→14:12)
--- NOTE | 2021-03-05 03:32 | PC.NURSE ---
Shift Note Frequent safety and comfort rounds continue. Orders and/or nursing care completed as indicated. Patient monitored for response to intervention and treatment(s). Will continue to monitor.
--- NOTE | 2021-03-05 04:42 | ECG_ITS ---
[facility] Test Date: 2021-03-05 Pat Name: Salas Oneal Department: Room: 112 Gender: Male Research Chef: : [id number] Requested By: Yamilex Jurado Order Number: [id number] Nguyễn MD: Jose Ness M.D. Measurements Intervals [place]ks Rate: 119 P: -46 NC: 236 QRS: -17 QRSD: 119 T: 120 QT: 248 QTc: 350 Interpretive Statements ECTOPIC ATRIAL TACHYCARDIA WITH FIRST DEGREE AV BLOCK POSSIBLE INFERIOR MYOCARDIAL INFARCTION , PROBABLY OLD [30 ms Q WAVE IN II/aVF] ST DEPRESSION, CONSIDER SUBENDOCARDIAL INJURY [0.1+ mV ST DEPRESSION] Compared to ECG 03/04/2021 14:35:44 First degree AV block now present Myocardial infarct finding now present ST (T wave) deviation now present Atrial fibrillation no longer present Intraventricular conduction delay no longer present T-wave abnormality no longer present Possible ischemia no longer present Electronically Signed On 03-05-2021 20:20:42 BLOCK SETTER GYPSUM by Jose Ness M.D. [id number]
[2021-03-05] MEDS: piperacillin-tazobactam 3.375 GM in sodium chloride 0.9% (plus) 50 ML IV ×3 (04:55→21:23)
--- NOTE | 2021-03-05 04:58 | PC.NURSE ---
Patient c/o a lot of pain even when receiving PRN Oxy as ordered. Patient is confused. Dr. Emerson notified.
[2021-03-05 06:09] LABS: Basophils % 0.2 %; Eosinophils % 0.1 %; Hemoglobin 10.5 g/dL (11.7-16.6); Lymphocytes # 1.3 10^3/uL (0.8-4.8); Mean Corpuscular HGB Conc 31.8 g/dL (30.0-36.0); Mean Corpuscular Hemoglobin 31.3 pg (28.0-34.0); Mean Corpuscular Volume 98.2 fl (80-94); Mean Platelet Volume 10.1 fL (7.4-10.4); Monocytes # 1.4 10^3/uL (0.2-0.9); Monocytes % 8.9 %; Neutrophils # 13.31 10^3/uL (1.8-7.7); Neutrophils % 82.3 %; Nucleated Red Blood Cells % 0 %; Platelet Count 213 10^3/cmm (130-400); Red Blood Count 3.36 10^6/uL (4.1-5.3); Red Cell Distribution Width 13.5 % (12.1-15.1); White Blood Count 16.2 10^3/uL (4.0-10.0)
[2021-03-05 06:35] LABS: Anion Gap 18.4 (5-19); Blood Urea Nitrogen 24 mg/dL (8-23); Calcium 7.7 mg/dL (8.5-10.5); Carbon Dioxide 21 mmol/L (22-29); Chloride 100 mmol/L (98-107); Glucose 117 mg/dL (65-115); Magnesium 2.8 mg/dL (1.7-2.3); Osmolality Calculated 287 mOsm/kg (285-295); Potassium 3.4 mmol/L (3.5-5.1); Sodium 136 mmol/L (136-145)
[2021-03-05 07:51] LABS: Glucose Point of Care 135 mg/dL (70-110)
[2021-03-05 07:51] LABS: Glucose Point of Care 72 mg/dL (70-110)
--- NOTE | 2021-03-05 08:20 | PM.PN ---
Subjective Subjective: Interval history: Seen this AM. He states he is doing ok. Could not tolerate mag citrate, he vomitted. BP has been little on higher side and HR also elevated which is expected since his BB and CCB was stopped yesterday due to the event from yesterday afternoon. Yesterday afternoon patient's blood pressure and heart rate dropped. He became bradycardic and hypotensive. Rapid response was called. Epinephrine was given. He also got atropine and glucagon. Patient did require Levophed for short period of time which was later weaned off in the evening. He also got IV fluids during that time. Patient was stabilized. Cardiology was also present during the rapid response. Decision was made to stop his Cardizem and his beta-hina for the time being. He still has not had had a bowel movement. Today GoLYTELY will be started as per recommendations from Dr. Tse. He has been afebrile overnight WBC count is elevated. Hemoglobin is stable. D-dimer 1.71. CAT scan of chest abdomen pelvis was done yesterday after the rapid response which showed possible partial small bowel obstruction with a transition point in the ileum. General surgery is on board. Potassium 3.4 this morning. Lactic acid 2.9 yesterday during rapid response was later returned down to 1.3. Vitals/I&O/Wt Last Vital Signs Temp 97.4 F L 03/05/21 07:24 Pulse 122 H 03/05/21 14:25 Resp 16 03/05/21 14:25 BP 163/96 03/05/21 07:24 Pulse Ox 95 03/05/21 14:25 03/05/21 03/05/21 03/05/21 06:59 14:59 22:59 Intake Total 650 / 2664.763 300 / 300 Output Total 475 / 850 Balance 175 / 1814.763 300 / 300 Physical Exam Narrative: EXAM NARRATIVE: General: Alert oriented x3 when seen this AM, patient seen laying in bed appearing comfortable chronically ill-appearing. HEENT: Normocephalic, atraumatic, EOMI, moist mucous membranes, breathing comfortably on nasal cannula. Keeps right eye closed mostly and has left eye open when he talks to you. Cardio: Irregularly irregular, normal S1-S2, no gross murmurs Respiratory: Good bilateral air entry, lungs clear to auscultation bilaterally anterior and posterior. No accessory muscle use. Does have diminished bilateral air entry at bases. GI: Abdomen soft, nontender, nondistended, bowel sounds + Behavior: Appropriate and cooperative Extremities: Trace lower extremity edema Neuro: Resting tremor noted upper extremities, head, neck, truncal area. Able to move all 4 extremities. Corbin catheter in place draining dark yellow urine. Urine output 475 cc Urinary Catheter Management^: Corbin: Cath Placed During This Visit: yes Reason for Continuing Indwelling Catheter: Accurate Measurement of Urinary Output in Critically Ill Patients Urinary Catheter Date of Insertion: 03/02/21 Urinary Catheter Time of Insertion: 12:45 Data : 03/05/21 05:10 03/05/21 05:10 Micro: Microbiology 03/04/21 14:34 Blood Culture - Preliminary Blood NEGATIVE TO DATE 03/04/21 14:28 Blood Culture - Preliminary Blood NEGATIVE TO DATE 02/28/21 02:08 Blood Culture - Final Blood NO GROWTH AFTER 5 DAYS 02/28/21 02:02 Blood Culture - Final Blood NO GROWTH AFTER 5 DAYS A&P Assessment and plan (1) On home oxygen therapy: Status: Chronic (2) Hypertensive urgency: Status: Acute (3) Atrial flutter: Status: Acute Qualifiers: Atrial flutter type: unspecified Qualified Code(s): I48.92 - Unspecified atrial flutter (4) Essential hypertension: Status: Chronic (5) CKD (chronic kidney disease): Status: Chronic Qualifiers: Chronic kidney disease stage: stage 2 (mild) Qualified Code(s): N18.2 - Chronic kidney disease, stage 2 (mild) (6) Coronary artery disease: Status: Chronic Qualifiers: Coronary Disease-Associated Artery/Lesion type: [place] artery [place] vs. transplanted heart: [place] heart Associated angina: without angina Qualified Code(s): I25.10 - Atherosclerotic heart disease of [place] coronary artery without angina pectoris (7) Parkinson's disease: Status: Chronic (8) COPD (chronic obstructive pulmonary disease): Status: Chronic Qualifiers: COPD type: emphysema Emphysema type: unspecified Qualified Code(s): J43.9 - Emphysema, unspecified Additional A&P Information #Hypertensive urgency #Atrial flutter with RVR #History of coronary artery disease status post PCI with stents -At home patient has been on as needed metoprolol and hydralazine. He was on amiodarone in the past as well which was stopped due to patient's atrial fibrillation being chronic. He is on warfarin as well which we will continue. INR is in range. -Did present with hypertensive urgency and received labetalol 10 mg IV x2, Cardizem 10 mg IV x1, metoprolol tartrate 25 mg once in the ER. ?STOPPED 12/ metoprolol tartrate 25 mg in AM and 50 mg at night. STOPPED cardizem long acting as per cardio recs. - Pt loaded with digoxin. Will continue at 125 mg daily. - If afib uncontrolled despite intervention, cardio plans to do FRED and cardioversion. Will follow recs - Hypertensive and tachy again today. Will obtain EKG - RN has concern for gurgling. CXR repeated and no evidence of pulm edema. Will attempt suctioning. Maintaining saturations. - Will also order barium swallow. - Add mucinex as patient takes that at home - Continue flutter valve #Bladder outlet obstruction with b/l hydrouteronephrosis and perinephric stranding, possible pyelonephritis #Acute urinary retention. - afebrile - corbin placed drained 780 cc urine at admission. -Continue Zosyn for now. - order urine culture. Result is pending. - [place] [address] [place] [address] today. - BCx NTD - Will discuss with urology. Dr. Perera reviewed patient's CT scan images. He is recommended to keep the Corbin in and see patient as an outpatient. We will continue IV antibiotics for now. Pt will need cystoscopy as per Dr. Perera. - Urine output 475 CC. Will flush corbin. - I believe once constipation is resolved, patient's urinary retention will improve as well. #Electrolytes ?Repleted. #Chronic kidney disease -Creatinine at baseline and normal. No acute kidney injury noted. #Chronic pain disorder #Low back pain #Parkinson's disease #Chronic hypoxic respiratory failure on oxygen at home [id number] ?Continue home medications. Continue Sinemet. ?On baseline home oxygen, continue ?Did have a recent COPD exacerbation and has been treated with Augmentin and prednisone by PCP. - CT lumbar spine showed b/l hydrouteronephrosis with possible bladder outlet obstruction and perinephric stranding b/l. Will place corbin catheter and discuss with urology. CT lumbar spine shows; - Moderate central, bilateral subarticular recess and foraminal stenosis at L4-5. 3. Mild central and bilateral subarticular recess stenosis at L2-3. 4. Disc contacts the RIGHT exiting L3 nerve root. Dr. Barba recommended to get a lumbar MRI spine. We will order that for today. Patient to follow-up outpatient when he gets discharged with orthopedic surgery. ?Continue chronic narcotic therapy ?Has known arthritis of spine. Denies any pain today. #Severe constipation -He has been given lactulose 20 every 6 hours, docusate senna, 3 enema so far but has not had a bowel movement. Manual disimpaction was also attempted but no results. ?CT abdomen pelvis 03/04 showed possible small bowel obstruction with transition point in the ileum. Case was discussed with Dr. Tse over the phone who reviewed the images. He is advised to do mag citrate once now and once in the morning. He does not see evidence of bowel obstruction at this time. Also patient has bowel sounds present and is denying any abdominal pain. Mag citrate attempted but pt did not tolerate. - Gen surgery consulted. Golytely has been started. Full code Cardiac diet DVT prophylaxis?patient is on warfarin. Attestations Medical Necessity Statement*: > 48 hours Coding Level of Care Code Acute Show Card Writer for Chg Fwd Diagnoses On home oxygen therapy Z99.81 Hypertensive urgency I16.0 Atrial flutter I48.92 Atrial flutter type: unspecified Essential hypertension I10 CKD (chronic kidney disease) N18.2 Chronic kidney disease stage: stage 2 (mild) Coronary artery disease I25.10 Coronary Disease-Associated Artery/Lesion type: tan[place] artery [place] vs. transplanted heart: [place] heart Associated angina: without angina Parkinson's disease G20 COPD (chronic obstructive pulmonary disease) J43.9 COPD type: emphysema Emphysema type: unspecified
[2021-03-05] MEDS: aspirin 81 mg Chew Tablet PO (09:11)
[2021-03-05] MEDS: sennosides-docusate Tablet 1 TAB PO ×2 (09:12→17:47)
[2021-03-05] MEDS: magnesium oxide 400 mg tablet PO ×2 (09:13→17:48)
[2021-03-05] MEDS: carbidopa-levodopa ER 50-200mg Tablet 1 EACH PO ×2 (09:13→17:47)
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
[2021-03-05] MEDS: lidocaine 5% Patch 1 PATCH TOPICAL (09:14)
[2021-03-05] MEDS: pantoprazole DR 40 mg Tablet PO (09:14)
[2021-03-05] MEDS: lactulose oral liq 20 gm/30 mL UDC PO ×2 (09:30→15:26)
[2021-03-05] MEDS: azithromycin 500 MG in sodium chloride 0.9% 250 ML 250 MG IV (09:33)
[2021-03-05] MEDS: potassium chloride oral liq 20 mEq/15 mL UDC 40 MEQ PO (09:40)
[2021-03-05] MEDS: digoxin 125 mcg Tablet PO (09:49)
[2021-03-05] MEDS: peg /e-lyte soln 4,000 mL Btl 4000 ML PO (10:25)
--- NOTE | 2021-03-05 10:44 | PC.SOCIAL ---
IMM UPDATED IMM dated and initialed and copy given to patient
[2021-03-05] MEDS: ALPRAZolam 0.5 mg Tablet 0.25 MG PO (11:30)
[2021-03-05 11:38] LABS: Glucose Point of Care 171 mg/dL (70-110)
[2021-03-05] MEDS: ondansetron 2 mg/ML SDV 2 mL 4 MG IVP (11:39)
[2021-03-05] MEDS: insulin lispro 100 unit/1 mL SUBCUT ×2 (11:40→21:31)
[2021-03-05] MEDS: vancomycin 1,500 MG/300 ML PIGGYBACK 200 MG IV (11:41)
--- NOTE | 2021-03-05 14:18 | XRR_ITS ---
PROCEDURE INFORMATION: Exam: XR Chest Exam date and time: 03/05/2021 2:18 PM Age: 80 years old Clinical indication: Other: Constipation; Additional info: Congestion TECHNIQUE: Imaging protocol: XR of the chest. Views: 1 view. COMPARISON: CR XR chest 1V portable [id number] 03/03/2021 4:52 PM FINDINGS: Tubes, catheters and devices: Left chest port terminates at the distal SVC. Lungs: Hypoinflated lungs. No evident consolidation. Pleural spaces: No evident pleural effusion. No pneumothorax. Heart/Mediastinum: Stable heart size. Bones/joints: Flattened morphology of the right humeral head. Superior subluxation of the left humerus suggestive of underlying rotator cuff pathology. XR/XR chest 1V portable [id number] IMPRESSION: Hypoinflated lungs. No evident consolidation or pleural effusion.
--- NOTE | 2021-03-05 16:01 | ECG_ITS ---
[facility] Test Date: 2021-03-05 Pat Name: Salas Oneal Department: Room: 112 Gender: Male Can Tender: : 1940 Requested By: Julieta French Order Number: [id number] Nguyễn MD: Jose Ness M.D. Measurements Intervals [place] Rate: 123 P: 266 TN: 177 QRS: -10 QRSD: 109 T: 159 QT: 315 QTc: 451 Interpretive Statements Possible atrial flutter with a 2-1 block INFERIOR MYOCARDIAL INFARCTION , PROBABLY OLD [40+ ms Q WAVE AND/OR ST/T ABNORMALITY IN II/aVF] Compared to ECG 03/05/2021 04:48:53 First degree AV block no longer present ST (T wave) deviation no longer present Myocardial infarct finding still present Electronically Signed On 03-05-2021 20:27:33 BULKER by Jose Ness M.D. [id number]
--- NOTE | 2021-03-05 16:26 | PM.PN ---
Subjective Subjective: Interval history: Patient abdomen still tympanic and distended with constipation. Medicine and surgical colleagues are working on it. Heart rate elevated no significant bradycardia noted blood pressure is moderately elevated Medications: Reviewed: Yes Medication Review Details: I personally reviewed home medication list and medications received day of admission thus far. Vitals/I&O/Wt Last Vital Signs Temp 97.4 F L 03/05/21 07:24 Pulse 122 H 03/05/21 14:25 Resp 16 03/05/21 14:25 BP 163/96 03/05/21 07:24 Pulse Ox 95 03/05/21 14:25 03/05/21 03/05/21 03/05/21 06:59 14:59 22:59 Intake Total 650 / 2664.763 300 / 300 Output Total 475 / 850 Balance 175 / 1814.763 300 / 300 Physical Exam Narrative: EXAM NARRATIVE: GENERAL: Patient is alert, awake and oriented x3. NECK: No jugular vein distension. HEENT: No cyanosis. No icterus. No pallor. HEART: Irregularly irregular S1 and S2. No murmur, rub or gallop. LUNGS: Clear to auscultate bilaterally. ABDOMEN: Distended tympanic/bowel sounds. No guarding, rebound or tenderness. CENTRAL NERVOUS SYSTEM: Grossly nonfocal. EXTREMITIES: Lower extremities without edema bilaterally. Urinary Catheter Management^: Torres: Cath Placed During This Visit: yes Reason for Continuing Indwelling Catheter: Accurate Measurement of Urinary Output in Critically Ill Patients Urinary Catheter Date of Insertion: 03/02/21 Urinary Catheter Time of Insertion: 12:45 Data : 03/05/21 05:10 03/05/21 05:10 Micro: Microbiology 03/04/21 14:34 Blood Culture - Preliminary Blood NEGATIVE TO DATE 03/04/21 14:28 Blood Culture - Preliminary Blood NEGATIVE TO DATE 02/28/21 02:08 Blood Culture - Final Blood NO GROWTH AFTER 5 DAYS 02/28/21 02:02 Blood Culture - Final Blood NO GROWTH AFTER 5 DAYS A&P Assessment and plan (1) A-fib: I will increase metoprolol to 50 mg twice a day we will add Cardizem 120 mg in the morning. Continue digoxin. We will continue to monitor. If he does not slows down over next 24 to 48-hour I am planning to proceed with transesophageal echo guided electrical cardioversion after ruling out clot in the left atrial appendage I will add Cardizem 120 mg today will reduce metoprolol to 25 mg in the morning and continue to 50 mg in the evening continue digoxin. We will also give him some IV fluid today if over next 24 hours patient do not slow down plan to cardiovert him after ruling out atrial appendage or atrial clot with transesophageal echocardiogram hopefully tomorrow Appear to be stable from cardiac perspective now continue 120 mg of Cardizem in the morning 25 mg of metoprolol in the morning and 50 mg of metoprolol in the evening along with digoxin. Continue current regimen hopefully once bowels are regulated will feel better. Continue to monitor patient is not on jua ndiego hina due to intermittent bradycardia pauses. At this point would like to relieve the constipation and distention of abdominal in order to prevent vagal stimulation and significant bradycardia. Status: Chronic Qualifiers: Atrial fibrillation type: unspecified chronic Qualified Code(s): I48.20 - Chronic atrial fibrillation, unspecified (2) Hypertensive urgency: Absorption is not good through the gut. We can use nitroglycerin patches, nitroglycerin drip at the same time we can also use IV hydralazine if needed 10 mg q. 6 as needed for systolic blood pressure more than 160. Status: Acute (3) Diastolic heart failure: Patient is well compensated Status: Chronic Qualifiers: Heart failure chronicity: chronic Qualified Code(s): I50.32 - Chronic diastolic (congestive) heart failure (4) Coronary artery disease: Appear to be stable from a coronary disease perspective. Status: Chronic Qualifiers: Coronary Disease-Associated Artery/Lesion type: [place] artery [place] vs. transplanted heart: [place] heart Associated angina: without angina Qualified Code(s): I25.10 - Atherosclerotic heart disease of [place] coronary artery without angina pectoris Attestations Medical Necessity Statement*: Patient require continuation hospitalization for above defined care. Coding Level of Care Code Established Pt Acute Arcade Attendant for Obie Phillip Patient Type Established History Detailed Exam Detailed Medical Decision Making Moderate Complexity Diagnoses A-fib I48.20 Atrial fibrillation type: unspecified chronic Hypertensive urgency I16.0 Diastolic heart failure I50.32 Heart failure chronicity: chronic Coronary artery disease I25.10 Coronary Disease-Associated Artery/Lesion type: [place] artery [place] vs. transplanted heart: [place] heart Associated angina: without angina
[2021-03-05] MEDS: guaiFENesin 600 mg Tablet PO (17:47)
[2021-03-05 19:19] LABS: Glucose Point of Care 147 mg/dL (70-110)
--- NOTE | 2021-03-05 20:18 | PC.NURSE ---
pt had been ordered to have a gallon of go-litely solution to drink over an 8 hr period due to severe constipation.pt was able to consume approx 1/2 of solution and said he could not drink anymore.at approx 1600,pt developed an increasing productive cough and gurgling in btwn coughing episodes.dr green notified.a pcxr was obtained.orders for catheter irrigation,bladder scan,nt suctioning,and placement of ngt obtained.corbin catheter flushed with 50 cc sterile water without difficulty and 50 cc irrigant returned.bladder scan reveiled 100 cc urine in bladder.nt suctioning preformed by rt...and sputum specimen obtained and sent to lab.sputum appeared a light faith color and thin consistency.pt vomited approx 300 cc of geenish/faith emesis.ngt placed w/o difficulty..and return of 1150 cc greenish faith fluid obtained immediately.pt was quite cooperative with all procedures.dr mcmanus visited pt and stated would like a milk and molasses enema given.enema given as ordered...and return of copious amts of pastey brown stool obtained.a few streaks of bright red blood noted.pt stated he felt so much better .at change of shift..pt became increasingly confused..wanted to go home..and pulled out ng tube.report given to oncoming shift.
[2021-03-05] MEDS: citalopram 20 mg Tablet 40 MG PO (21:30)
[2021-03-05] MEDS: lidocaine 5% Patch 2 PATCH TOPICAL (21:35)
[2021-03-06] VITALS (12 sets, daily range): BP systolic 120–188; BP diastolic 88–99; PULSE 88–131; RESP 16–22; TEMP 36.7–36.9; O2SAT 98
--- NOTE | 2021-03-06 00:58 | PC.NURSE ---
Patient with numerous loose stools. He states I feel better now . NG tube will be re-inserted. Denies pain at this time. Will monitor.
--- NOTE | 2021-03-06 01:08 | PC.NURSE ---
Patient had pulled out ng tube. Numerous bowel movements. MD wanted ng tube replaced. NG tube not replaced immediately as patient was requiring a sitter at the time. Patient continuing to have large bowel movements. Sitter in room. Will continue to monitor patient.
[2021-03-06 03:18] LABS: Basophils % 0.2 %; Eosinophils # 0.1 10^3/uL (0.0-0.8); Eosinophils % 0.6 %; Hematocrit 34.3 % (42.0-52.0); Hemoglobin 11.1 g/dL (11.7-16.6); Lymphocytes # 1.3 10^3/uL (0.8-4.8); Lymphocytes % 9.4 %; Mean Corpuscular HGB Conc 32.4 g/dL (30.0-36.0); Mean Corpuscular Hemoglobin 31.3 pg (28.0-34.0); Mean Corpuscular Volume 96.6 fl (80-94); Mean Platelet Volume 9.5 fL (7.4-10.4); Monocytes # 1.3 10^3/uL (0.2-0.9); Monocytes % 9.3 %; Neutrophils # 11.01 10^3/uL (1.8-7.7); Neutrophils % 80.1 %; Nucleated Red Blood Cells % 0 %; Platelet Count 254 10^3/cmm (130-400); Red Blood Count 3.55 10^6/uL (4.1-5.3); Red Cell Distribution Width 13.3 % (12.1-15.1); White Blood Count 13.8 10^3/uL (4.0-10.0)
[2021-03-06 03:32] LABS: INR 1.08 (0.8-1.2)
[2021-03-06 03:45] LABS: Anion Gap 17.8 (5-19); Blood Urea Nitrogen 20 mg/dL (8-23); Calcium 8.3 mg/dL (8.5-10.5); Carbon Dioxide 23 mmol/L (22-29); Chloride 101 mmol/L (98-107); Glucose 92 mg/dL (65-115); Magnesium 2.6 mg/dL (1.7-2.3); Osmolality Calculated 288 mOsm/kg (285-295); Potassium 3.8 mmol/L (3.5-5.1); Sodium 138 mmol/L (136-145)
--- NOTE | 2021-03-06 05:54 | PC.NURSE ---
Addendum entered by Jennifer Ryan RN 03/06/21 06:02: Patient ng not able to be placed. Dr. Tse in this am and stated not to place the ng as patient had approximately 10-15 loose stools. Also stated not to give anymore go-lytely. Will continue to monitor. Original Note: Patient ng not able to be placed. MD in this morning and stated to not place at this time based on examination. MD states to d/c sangeeta also. Patient feeling better. Still confused at times. Approximate 10-12 large loose BM's. Will pass new information on to next shift.
[2021-03-06] MEDS: oxyCODONE IR 30 mg Tablet PO ×2 (06:27→20:56)
[2021-03-06] MEDS: piperacillin-tazobactam 3.375 GM in sodium chloride 0.9% (plus) 50 ML IV ×3 (06:29→20:54)
[2021-03-06] MEDS: enoxaparin 40 mg/0.4 mL Syringe SUBCUT (06:30)
[2021-03-06 06:37] LABS: Glucose Point of Care 156 mg/dL (70-110)
[2021-03-06] MEDS: vancomycin 1,500 MG/300 ML PIGGYBACK 200 MG IV (07:52)
[2021-03-06 08:01] LABS: Glucose Point of Care 123 mg/dL (70-110)
[2021-03-06] MEDS: lactulose oral liq 20 gm/30 mL UDC PO (08:13)
[2021-03-06] MEDS: pantoprazole DR 40 mg Tablet PO (08:13)
[2021-03-06] MEDS: magnesium oxide 400 mg tablet PO (08:13)
[2021-03-06] MEDS: carbidopa-levodopa ER 50-200mg Tablet 1 EACH PO (08:13)
[2021-03-06] MEDS: guaiFENesin 600 mg Tablet PO (08:13)
[2021-03-06] MEDS: aspirin 81 mg Chew Tablet PO (08:13)
[2021-03-06] MEDS: digoxin 125 mcg Tablet PO (08:13)
[2021-03-06] MEDS: sennosides-docusate Tablet 1 TAB PO (08:13)
--- NOTE | 2021-03-06 08:46 | PC.NURSE ---
physician ordered to d/c vanc
--- NOTE | 2021-03-06 08:54 | XR_ITS ---
WS: [id number] XR chest 1V portable [id number] REASON FOR EXAM: f/u FINDINGS: The left subclavian central catheter remains in proper position with chemotherapy port over the left anterolateral chest. No interval change is identified in the lungs compared to the previous examination of 03/05/2021. No acute infiltrates or effusion. Decreased gaseous distention of the bowel in the upper abdomen. XR/XR chest 1V portable [id number] IMPRESSION: No significant interval pulmonary change. Decreased gaseous distention of upper abdominal bowel.
--- NOTE | 2021-03-06 10:25 | PC.CHAP ---
Pastoral Care Encounter/Spiritual Assessment Type of Contact [] Declined improvement leader visit [] Patient/Family/Request visit [] Outpatient visit [] Follow-up visit [] Physician referral [] Code/Alert [x] Routine visit [] Staff referral [] Actively dying [] Patient sleeping [] Family support [] [] Out of room [] Palliative care [] [x] Receiving care in room [] Pre-surgical visit [] Trauma [] Long length of stay [] ICU visit [] Other: Relational/Emotional Strength [] Patient feels connected with others/family/visitors/staff [] Distress [] Loneliness/isolation [] Abandonment Spirituality of Patient [] Person of Katelyn [] Attends Adventist of their Katelyn [] Believes in Prayer [] Reads Bible or Confucianist materials [] There are Spiritual issues to be addressed Back Tufter Interventions [x] Prayer [] Active listening [] Non-anxious presence [] Spiritual/emotional support [] Crisis/trauma care [] Spiritual counseling [] Bereavement support [] Provided bereavement packet [] Provided Bible/devotional materials [] Provided toy/stuffed animal, coloring book to patient or family member [] Provided Communion [] Anointing/[place] [] Salvation [x] Completed spiritual assessment [] Other: Impact on Illness or Injury [] Angry [] Fearful [] Anxious [] Often cries [] Exhaustion [] Unable to work [] Unable to attend yarsanism [] Unable to walk/stand [] Unable to read [] Unable to drive [] Unable to eat/drink [] Unable to sleep [] Unable to be with family [] Patient intubated [] Other: Summary Time spent with patient
[2021-03-06 11:13] LABS: Glucose Point of Care 123 mg/dL (70-110)
[2021-03-06] MEDS: azithromycin 500 MG in sodium chloride 0.9% 250 ML 250 MG IV (11:19)
--- NOTE | 2021-03-06 12:00 | PC.NURSE ---
Physician notified regarding patients heart rate of 130's and hypertension. Orders to start Cardizem gtt.
--- NOTE | 2021-03-06 12:22 | P.PN_ITS ---
Subjective Subjective: Interval history: Patient was awake and alert this morning, Ava aguilar RVR hypertensive systolic blood pressure 180s, overnight heart rate fluctuated between 1 20-1 30s He is not confused anymore Had multiple bowel movements yesterday NG tube was removed by the patient himself, at the bedside stating that his confusion has improved significantly, patient stating that nonfamilial environment he does become combative and aggressive and would not like to go to any care home, He is not vomiting, tolerated diet Advance diet tomorrow if no recurrence of vomiting continue Zosyn for perinephric stranding noted on CT abdomen pelvis Started Cardizem drip, discontinue azithromycin Vitals/I&O/Wt Last Vital Signs Temp 98.1 F 03/06/21 04:00 Pulse 128 H 03/06/21 08:13 Resp 18 03/06/21 06:27 BP 168/97 03/06/21 04:00 Pulse Ox 98 03/06/21 00:00 03/05/21 03/06/21 03/06/21 22:59 06:59 14:59 Intake Total 50 / 2310 143 / 2453 149.791 / 149.791 Output Total 2475 / 2475 2950 / 5425 Balance -2425 / -165 -2807 / -2972 149.791 / 149.791 Physical Exam Narrative: EXAM NARRATIVE: Patient very pleasant, elderly male Saturating well on 2 L Patient does answer my question appropriately Nonfocal neuro exam Abdomen soft nondistended bowel sounds present Lower symmetry no edema Petechial bruises and laceration of extremities noted Bilateral breath sounds with rhonchi Variable S1-S2 Urinary Catheter Management^: Torres: Cath Placed During This Visit: yes Reason for Continuing Indwelling Catheter: Accurate Measurement of Urinary Output in Critically Ill Patients Urinary Catheter Date of Insertion: 03/02/21 Urinary Catheter Time of Insertion: 12:45 Data : 03/06/21 02:18 03/06/21 02:18 Micro: Microbiology 03/05/21 16:10 Gram Stain - Final Sputum - Expectorated Sputum Sputum Culture - Preliminary 03/04/21 21:09 Urine Culture - Preliminary Urine Catheterized Yeast species 03/02/21 13:00 Urine Culture - Final Urine Catheterized Katie albicans 03/04/21 14:34 Blood Culture - Preliminary Blood NEGATIVE TO DATE 12/11/21 14:28 Blood Culture - Preliminary Blood NEGATIVE TO DATE A&P Assessment and plan (1) Partial bowel obstruction: Status: Acute (2) On home oxygen therapy: Status: Chronic (3) Low back pain: Status: Acute Qualifiers: Back pain laterality: midline Chronicity: acute Sciatica presence: without sciatica Qualified Code(s): M54.50 - Low back pain, unspecified (4) Hypertensive urgency: Status: Acute (5) Atrial flutter: Status: Acute Qualifiers: Atrial flutter type: unspecified Qualified Code(s): I48.92 - Unspecified atrial flutter (6) Weakness: Status: Acute (7) Essential hypertension: Status: Chronic (8) CKD (chronic kidney disease): Status: Chronic Qualifiers: Chronic kidney disease stage: stage 2 (mild) Qualified Code(s): N18.2 - Chronic kidney disease, stage 2 (mild) Additional A&P Information Partial small bowel obstruction: NG tube revealed 1600 cc yesterday however this morning when I saw him patient was tolerating liquid diet, he pulled his NG tube last night, No abdominal pain or worsening of nausea or vomiting Dr. Tse recommended conservative management with clear liquid diet for now Symptoms improved after multiple bowel movements yesterday A. fib RVR: Difficult to control, he is hypertensive and heart rate is in 120s, will start Cardizem drip close monitoring for drop in blood pressure he had a rapid response when his heart rate and blood pressure were low Check digoxin level Will follow up with cardiology recommendations Patient did not tolerate amiodarone in the past Would add AV KIMBERLYN BLOCKING AGENT after discussion with cardiology, Dr. Collins will see him after his clinic Bilateral hydroureteronephrosis with perinephric stranding: Continue Zosyn for now, afebrile, no significant leukocytosis Culture negative to date, Outpatient cystoscopy required for BPH Acute delirium: Resolved Most likely this was secondary to dehydration after aggressive bowel regimen which resulted in multiple bowel movements yesterday He also had 16oo cc of output via NG Might benefit from gentle hydration Continue Parkinson's medications Has lumbar degenerative changes outpatient Dr. Barba's follow-up Constipation: Resolved Electrolytes: Resolved Full code Clear liquid diet Hypertensive urgency: Started Cardizem drip DVT prophylaxis: Lovenox Attestations Medical Necessity Statement*: Continue medical management Time Spent in Patient Care: 16 - 35 minutes Coding Level of Care Code Acute Professor Of German for Chg Fwd Diagnoses Partial bowel obstruction K56.600 On home oxygen therapy Z99.81 Low back pain M54.50 Back pain laterality: midline Chronicity: acute Sciatica presence: without sciatica Hypertensive urgency I16.0 Atrial flutter I48.92 Atrial flutter type: unspecified Weakness R53.1 Essential hypertension I10 CKD (chronic kidney disease) N18.2 Chronic kidney disease stage: stage 2 (mild)
--- NOTE | 2021-03-06 13:29 | PC.NURSE ---
Physician notified regarding patients increased agitation, restlessness, and anxiety. No further orders added.
[2021-03-06 13:33] LABS: Digoxin 0.7 ng/mL (0.6-1.2)
--- NOTE | 2021-03-06 13:36 | PM.PN ---
Subjective Subjective: Interval history: Patient overall feeling better and had multiple bowel movements yet loose.Responded well to milk and molasses enema and NG was pulled out and there was no indication to replace it. Vitals/I&O/Wt Last Vital Signs Temp 98.3 F 03/06/21 12:32 Pulse 129 H 03/06/21 12:32 Resp 19 H 03/06/21 12:32 BP 175/97 03/06/21 12:32 Pulse Ox 98 03/06/21 00:00 03/05/21 03/06/21 03/06/21 22:59 06:59 14:59 Intake Total 50 / 2310 143 / 2453 509.791 / 509.791 Output Total 2475 / 2475 2950 / 5425 Balance -2425 / -165 -2807 / -2972 509.791 / 509.791 Physical Exam Narrative: EXAM NARRATIVE: Patient is conscious alert oriented X3 BMI 31.4 Head and neck examination PERRLA no masses no cervical lymphadenopathy no jaundice Abdomen nontender nondistended soft no organomegaly guarding or rigidity/no signs of peritonitis Urinary Catheter Management^: Torres: Cath Placed During This Visit: yes Reason for Continuing Indwelling Catheter: Accurate Measurement of Urinary Output in Critically Ill Patients Urinary Catheter Date of Insertion: 03/02/21 Urinary Catheter Time of Insertion: 12:45 Data : 03/06/21 02:18 03/06/21 02:18 Micro: Microbiology 03/05/21 16:10 Gram Stain - Final Sputum - Expectorated Sputum Sputum Culture - Preliminary 03/04/21 21:09 Urine Culture - Preliminary Urine Catheterized Yeast species 03/02/21 13:00 Urine Culture - Final Urine Catheterized Katie albicans 03/04/21 14:34 Blood Culture - Preliminary Blood NEGATIVE TO DATE 03/04/21 14:28 Blood Culture - Preliminary Blood NEGATIVE TO DATE A&P Assessment and plan (1) Partial bowel obstruction: Patient likely had an underlying chronic constipation and responded well to milk and molasses enema. No indication for NG placement at the moment Start the patient on clear liquid diet and advance as tolerated after Advise to have the patient on stool softeners in the form of Metamucil and or Benefiber Ample of hydration Assurance and education All questions have been answered and all concerns have been addressed to patient's satisfaction. Status: Resolved Attestations Medical Necessity Statement*: Per admitting service Time Spent in Patient Care: (>than 50% of time spent in counselling and/or direct pt care on unit). Coding Level of Care Code Acute Maori Liaison Adviser for Jakeg Fwd Diagnoses Partial bowel obstruction K56.600
[2021-03-06] MEDS: acetaminophen 325 mg Tablet 650 MG PO (13:52)
[2021-03-06] MEDS: dilTIAZem 30 mg Tablet PO ×2 (13:52→21:07)
[2021-03-06] MEDS: ALPRAZolam 0.5 mg Tablet PO ×2 (15:07→21:00)
[2021-03-06] MEDS: haloperidol inj 5 mg/mL INJ 1 mL IM (16:49)
[2021-03-06 16:56] LABS: Glucose Point of Care 145 mg/dL (70-110)
--- NOTE | 2021-03-06 17:28 | PC.NURSE ---
Physician notified regarding patients continued restlessness, agitation and anxiety. Patient has pulled out multiple IVS, and caused tears to his skin. Physician ordered Haldol. Haldol was given. Patient behavior has still not improved.
[2021-03-06] MEDS: diphenhydrAMINE 50 mg/mL SDV 1mL 25 MG IVP (18:01)
[2021-03-06] MEDS: propranolol 20 mg Tablet 10 MG PO (18:01)
--- NOTE | 2021-03-06 19:01 | PM.PN ---
Subjective Subjective: Interval history: Finally patient had improved on constipation rather he has some diarrhea now. Heart rate went up therefore started on Cardizem Medications: Reviewed: Yes Medication Review Details: I personally reviewed home medication list and medications received day of admission thus far. Vitals/I&O/Wt Last Vital Signs Temp 98.3 F 03/06/21 12:32 Pulse 131 H 03/06/21 16:29 Resp 19 H 03/06/21 16:29 BP 188/96 03/06/21 16:29 Pulse Ox 98 03/06/21 00:00 03/06/21 03/06/21 03/06/21 06:59 14:59 22:59 Intake Total 143 / 2453 509.791 / 509.791 50 / 559.791 Output Total 2950 / 5425 Balance -2807 / -2972 509.791 / 509.791 50 / 559.791 Physical Exam Narrative: EXAM NARRATIVE: GENERAL: Patient is alert, awake and oriented x3. NECK: No jugular vein distension. HEENT: No cyanosis. No icterus. No pallor. HEART: Irregularly irregular S1 and S2. No murmur, rub or gallop. LUNGS: Clear to auscultate bilaterally. ABDOMEN: Distended tympanic/bowel sounds. No guarding, rebound or tenderness. CENTRAL NERVOUS SYSTEM: Grossly nonfocal. EXTREMITIES: Lower extremities without edema bilaterally. Urinary Catheter Management^: Torres: Cath Placed During This Visit: yes Reason for Continuing Indwelling Catheter: Other Urinary Catheter Date of Insertion: 03/02/21 Urinary Catheter Time of Insertion: 12:45 Data : 03/06/21 02:18 03/06/21 02:18 Micro: Microbiology 03/05/21 16:40 MRSA Culture - Final Nose 03/05/21 16:10 Gram Stain - Final Sputum - Expectorated Sputum Sputum Culture - Preliminary 03/04/21 21:09 Urine Culture - Preliminary Urine Catheterized Yeast species 03/02/21 13:00 Urine Culture - Final Urine Catheterized Katie albicans 03/04/21 14:34 Blood Culture - Preliminary Blood NEGATIVE TO DATE 03/04/21 14:28 Blood Culture - Preliminary Blood NEGATIVE TO DATE A&P Assessment and plan (1) A-fib: I will increase metoprolol to 50 mg twice a day we will add Cardizem 120 mg in the morning. Continue digoxin. We will continue to monitor. If he does not slows down over next 24 to 48-hour I am planning to proceed with transesophageal echo guided electrical cardioversion after ruling out clot in the left atrial appendage I will add Cardizem 120 mg today will reduce metoprolol to 25 mg in the morning and continue to 50 mg in the evening continue digoxin. We will also give him some IV fluid today if over next 24 hours patient do not slow down plan to cardiovert him after ruling out atrial appendage or atrial clot with transesophageal echocardiogram hopefully tomorrow Appear to be stable from cardiac perspective now continue 120 mg of Cardizem in the morning 25 mg of metoprolol in the morning and 50 mg of metoprolol in the evening along with digoxin. Continue current regimen hopefully once bowels are regulated will feel better. Continue to monitor patient is not on juan diego hina due to intermittent bradycardia pauses. At this point would like to relieve the constipation and distention of abdominal in order to prevent vagal stimulation and significant bradycardia. Rate need to be controlled agree with Cardizem IV drip Status: Chronic Qualifiers: Atrial fibrillation type: unspecified chronic Qualified Code(s): I48.20 - Chronic atrial fibrillation, unspecified (2) Hypertensive urgency: IV hydralazine may can be used along with nitroglycerin paste/patch Status: Acute (3) Diastolic heart failure: Continues to be compensated Status: Chronic Qualifiers: Heart failure chronicity: chronic Qualified Code(s): I50.32 - Chronic diastolic (congestive) heart failure (4) Coronary artery disease: Appear to be stable from a coronary disease perspective. Status: Chronic Qualifiers: Coronary Disease-Associated Artery/Lesion type: [place] artery [place] vs. transplanted heart: [place] heart Associated angina: without angina Qualified Code(s): I25.10 - Atherosclerotic heart disease of [place] coronary artery without angina pectoris Attestations Medical Necessity Statement*: Patient require continuation of hospitalization for above defined care Coding Level of Care Code Established Pt Acute Post Anesthesia Care Unit Nurse for Obie Phillip Patient Type Established History Detailed Exam Detailed Medical Decision Making Moderate Complexity Diagnoses A-fib I48.20 Atrial fibrillation type: unspecified chronic Hypertensive urgency I16.0 Diastolic heart failure I50.32 Heart failure chronicity: chronic Coronary artery disease I25.10 Coronary Disease-Associated Artery/Lesion type: [place] artery [place] vs. transplanted heart: [place] heart Associated angina: without angina
[2021-03-06] MEDS: lidocaine 5% Patch 2 PATCH TOPICAL (20:55)
[2021-03-06] MEDS: citalopram 20 mg Tablet 40 MG PO (20:56)
[2021-03-06 21:07] LABS: Glucose Point of Care 206 mg/dL (70-110)
[2021-03-06] MEDS: insulin lispro 100 unit/1 mL SUBCUT (21:08)
[2021-03-06 23:23] LABS: Vancomycin Trough 8.5 ug/mL (10-15)
[2021-03-07] VITALS (67 sets, daily range): BP systolic 104–206; BP diastolic 53–123; PULSE 59–132; RESP 12–26; TEMP 36.3–36.8; O2SAT 84–119
[2021-03-07] MEDS: dilTIAZem 30 mg Tablet PO ×2 (00:33→09:40)
[2021-03-07] MEDS: enoxaparin 40 mg/0.4 mL Syringe SUBCUT ×2 (00:33→22:59)
--- NOTE | 2021-03-07 01:39 | PC.NURSE ---
Patient extremely restles at beginning of shift Had been given haldol prior. Asked patient if he was having pain and he requested pain medications. Patient given Oxycodone and his xanax and was able to sleep off and on for few hours. Sitter at bedside.
[2021-03-07] MEDS: piperacillin-tazobactam 3.375 GM in sodium chloride 0.9% (plus) 50 ML IV ×2 (05:47→14:22)
[2021-03-07] MEDS: ALPRAZolam 0.5 mg Tablet PO (06:45)
[2021-03-07] MEDS: oxyCODONE IR 30 mg Tablet PO ×2 (06:45→21:19)
--- NOTE | 2021-03-07 06:54 | PC.NURSE ---
Patient BP elevated this am however he was having pain. Xanax and Oxycodone given. Will re-do bp when he seems to less in pain.
[2021-03-07 07:22] LABS: Glucose Point of Care 123 mg/dL (70-110)
[2021-03-07 07:30] LABS: Basophils % 0.3 %; Eosinophils # 0.3 10^3/uL (0.0-0.8); Eosinophils % 2.2 %; Hematocrit 35.3 % (42.0-52.0); Hemoglobin 11.5 g/dL (11.7-16.6); Lymphocytes # 1.5 10^3/uL (0.8-4.8); Lymphocytes % 11.9 %; Mean Corpuscular HGB Conc 32.6 g/dL (30.0-36.0); Mean Corpuscular Volume 95.1 fl (80-94); Mean Platelet Volume 10.8 fL (7.4-10.4); Monocytes # 1.3 10^3/uL (0.2-0.9); Neutrophils # 9.39 10^3/uL (1.8-7.7); Neutrophils % 75.1 %; Nucleated Red Blood Cells % 0 %; Platelet Count 216 10^3/cmm (130-400); Red Blood Count 3.71 10^6/uL (4.1-5.3); Red Cell Distribution Width 13.3 % (12.1-15.1); White Blood Count 12.5 10^3/uL (4.0-10.0)
[2021-03-07 07:51] LABS: Blood Urea Nitrogen 10 mg/dL (8-23); Calcium 8.2 mg/dL (8.5-10.5); Carbon Dioxide 24 mmol/L (22-29); Chloride 99 mmol/L (98-107); Glucose 107 mg/dL (65-115); Osmolality Calculated 284 mOsm/kg (285-295); Sodium 137 mmol/L (136-145)
[2021-03-07 07:55] LABS: Anion Gap 17.6 (5-19); Potassium 3.6 mmol/L (3.5-5.1)
[2021-03-07] MEDS: aspirin 81 mg Chew Tablet PO (09:40)
[2021-03-07] MEDS: magnesium oxide 400 mg tablet PO ×2 (09:40→17:16)
[2021-03-07] MEDS: sennosides-docusate Tablet 1 TAB PO ×2 (09:40→17:16)
[2021-03-07] MEDS: metoprolol tartrate 25 mg Tablet PO ×2 (09:40→17:16)
[2021-03-07] MEDS: digoxin 125 mcg Tablet PO (09:40)
[2021-03-07] MEDS: guaiFENesin 600 mg Tablet PO ×2 (09:40→17:16)
[2021-03-07] MEDS: pantoprazole DR 40 mg Tablet PO (09:40)
--- NOTE | 2021-03-07 10:59 | PC.NURSE ---
Dr rai notified of patient drop in HR to 59-70 Aflutter No new orders received
[2021-03-07 11:23] LABS: Glucose Point of Care 143 mg/dL (70-110)
--- NOTE | 2021-03-07 15:51 | P.PN_ITS ---
Subjective Subjective: Interval history: Yesterday for akathisia propanolol and Benadryl was given overnight patient was able to sleep, this morning he has been sleeping until 4 PM, akathisia and restless leg symptoms improved this morning when he received metoprolol his heart rate improved from 118 to 60s, systolic blood pressure 117 mmHg Family at the bedside is planning to bring him home, she does not want correction placement, she wants to see how he would behave when he wakes up today We are holding his carbidopa levodopa for now, AV juan diego blocking agents discontinued current heart rate fluctuated between 58-61 Vitals/I&O/Wt Last Vital Signs Temp 98.2 F 03/07/21 04:00 Pulse 119 H 03/07/21 09:40 Resp 20 H 03/07/21 06:45 BP 146/107 03/07/21 04:00 Pulse Ox 119 H 03/07/21 04:00 03/07/21 03/07/21 03/07/21 06:59 14:59 22:59 Intake Total 150 / 802.791 143.417 / 143.417 Output Total 700 / 0 Balance -550 / -1247.209 143.417 / 143.417 Physical Exam Narrative: EXAM NARRATIVE: Patient has been sleeping since morning I evaluated him twice Heart rate and blood pressure stable On request of the family I did not wake him up today Lisasyn rating at the bedside He is saturating well on 2 L nasal cannula Current heart rate 59, systolic blood pressure 117mmhg Urinary Catheter Management^: Torres: Cath Placed During This Visit: yes Reason for Continuing Indwelling Catheter: Acute Urinary Retention or Obstruction Urinary Catheter Date of Insertion: 03/02/21 Urinary Catheter Time of Insertion: 12:45 Data : 03/07/21 07:04 03/07/21 07:04 Micro: Microbiology 03/05/21 16:10 Gram Stain - Final Sputum - Expectorated Sputum Sputum Culture - Preliminary Staphylococcus aureus 03/05/21 16:40 MRSA Culture - Final Nose A&P Assessment and plan (1) Partial bowel obstruction: Status: Resolved (2) On home oxygen therapy: Status: Chronic (3) Low back pain: Status: Acute Qualifiers: Chronicity: acute Back pain laterality: midline Sciatica presence: without sciatica Qualified Code(s): M54.50 - Low back pain, unspecified (4) Hypertensive urgency: Status: Acute (5) Atrial flutter: Status: Acute Qualifiers: Atrial flutter type: unspecified Qualified Code(s): I48.92 - Unspecified atrial flutter (6) Weakness: Status: Acute (7) Essential hypertension: Status: Chronic (8) CKD (chronic kidney disease): Status: Chronic Qualifiers: Chronic kidney disease stage: stage 2 (mild) Qualified Code(s): N18.2 - Chronic kidney disease, stage 2 (mild) Additional A&P Information Partial small bowel obstruction: Resolved patient tolerated his diet yesterday Constipation: Resolved after GoLYTELY Atrial flutter Today after receiving metoprolol heart rate dropped to 60s, I will discontinue Cardizem drip and Cardizem p.o. every 6 hours will only continue metoprolol for now Not a candidate of anticoagulation secondary to hematuria and falls Hypertensive urgency: Improved with use of metoprolol today Perinephric stranding however he has stayed afebrile, will de-escalate a ntibiotics today Cultures negative Outpatient cystoscopy might be needed for hematuria however he has BPH Acute delirium: Resolved Parkinson's Holding levodopa carbidopa which were causing side effects such as akathisia improved with use of propranolol and Benadryl CODE STATUS discussed with the , patient is DNR/DNI, she does have living will and DPOA documentation Does not want correction placement, plan to discharge him home if his behavioral issues are resolved after he wakes up today DVT prophylaxis board Patient might need Julienne psych placement however family is reluctant Attestations Medical Necessity Statement*: Anticipating discharge tomorrow Time Spent in Patient Care: 16 - 35 minutes Coding Level of Care Code Acute Customer Resource Specialist for Chg Fwd Diagnoses Partial bowel obstruction K56.600 On home oxygen therapy Z99.81 Low back pain M54.50 Chronicity: acute Back pain laterality: midline Sciatica presence: without sciatica Hypertensive urgency I16.0 Atrial flutter I48.92 Atrial flutter type: unspecified Weakness R53.1 Essential hypertension I10 CKD (chronic kidney disease) N18.2 Chronic kidney disease stage: stage 2 (mild)
--- NOTE | 2021-03-07 17:15 | PC.SOCIAL ---
IMM UPDATED IMM dated and initialed an copy given to patient
[2021-03-07] MEDS: amoxicillin-clav 875-125 mg Tablet 1 TAB PO (17:16)
--- NOTE | 2021-03-07 17:40 | PM.PN ---
Subjective Subjective: Interval history: Patient appeared to be confused. Constipation has been relieved in fact he has a diarrhea. He is tachycardic Medications: Reviewed: Yes Medication Review Details: I personally reviewed home medication list and medications received day of admission thus far. Vitals/I&O/Wt Last Vital Signs Temp 98.2 F 03/07/21 04:00 Pulse 85 03/07/21 16:14 Resp 17 03/07/21 16:14 BP 149/92 03/07/21 16:14 Pulse Ox 98 03/07/21 16:14 03/07/21 03/07/21 03/07/21 06:59 14:59 22:59 Intake Total 150 / 802.791 143.417 / 143.417 Output Total 700 / 2050 Balance -550 / -1247.209 143.417 / 143.417 Physical Exam Narrative: EXAM NARRATIVE: GENERAL: Patient is confused NECK: No jugular vein distension. HEENT: No cyanosis. No icterus. No pallor. HEART: Irregularly irregular S1 and S2. No murmur, rub or gallop. LUNGS: Clear to auscultate bilaterally. ABDOMEN: Soft nondistended positive bowel sounds CENTRAL NERVOUS SYSTEM: Patient appeared to be confused EXTREMITIES: Lower extremities without edema bilaterally. Urinary Catheter Management^: Torres: Cath Placed During This Visit: yes Reason for Continuing Indwelling Catheter: Acute Urinary Retention or Obstruction Urinary Catheter Date of Insertion: 03/02/21 Urinary Catheter Time of Insertion: 12:45 Data : 03/07/21 07:04 03/07/21 07:04 Micro: Microbiology 03/05/21 16:10 Gram Stain - Final Sputum - Expectorated Sputum Sputum Culture - Preliminary Staphylococcus aureus 03/05/21 16:40 MRSA Culture - Final Nose A&P Assessment and plan (1) A-fib: I will increase metoprolol to 50 mg twice a day we will add Cardizem 120 mg in the morning. Continue digoxin. We will continue to monitor. If he does not slows down over next 24 to 48-hour I am planning to proceed with transesophageal echo guided electrical cardioversion after ruling out clot in the left atrial appendage I will add Cardizem 120 mg today will reduce metoprolol to 25 mg in the morning and continue to 50 mg in the evening continue digoxin. We will also give him some IV fluid today if over next 24 hours patient do not slow down plan to cardiovert him after ruling out atrial appendage or atrial clot with transesophageal echocardiogram hopefully tomorrow Appear to be stable from cardiac perspective now continue 120 mg of Cardizem in the morning 25 mg of metoprolol in the morning and 50 mg of metoprolol in the evening along with digoxin. Continue current regimen hopefully once bowels are regulated will feel better. Continue to monitor patient is not on juan diego hina due to intermittent bradycardia pauses. At this point would like to relieve the constipation and distention of abdominal in order to prevent vagal stimulation and significant bradycardia. Rate need to be controlled agree with Cardizem IV drip Continue to manage with parenteral IV juan diego hina until patient can take by mouth Status: Chronic Qualifiers: Atrial fibrillation type: unspecified chronic Qualified Code(s): I48.20 - Chronic atrial fibrillation, unspecified (2) Hypertensive urgency: IV hydralazine may can be used along with nitroglycerin paste/patch Status: Acute (3) Diastolic heart failure: Continues to be compensated Status: Chronic Qualifiers: Heart failure chronicity: chronic Qualified Code(s): I50.32 - Chronic diastolic (congestive) heart failure (4) Coronary artery disease: Appear to be stable from a coronary disease perspective. Status: Chronic Qualifiers: Coronary Disease-Associated Artery/Lesion type: [place] artery [place] vs. transplanted heart: [place] heart Associated angina: without angina Qualified Code(s): I25.10 - Atherosclerotic heart disease of [place] coronary artery without angina pectoris Attestations Medical Necessity Statement*: Patient require continuation hospitalization for above defined care. 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 transplanted heart: [place] heart Associated angina: without angina
[2021-03-07 18:45] LABS: Glucose Point of Care 108 mg/dL (70-110)
[2021-03-07] MEDS: citalopram 20 mg Tablet 40 MG PO (19:36)
[2021-03-07] MEDS: fluconazole premix 200 MG/100 ML PREMIX 100 MG IV (20:19)
[2021-03-07 20:30] LABS: Glucose Point of Care 117 mg/dL (70-110)
[2021-03-07] MEDS: ipratropium-albuterol 3 mL Neb INHALATION (21:24)
[2021-03-07] MEDS: acetaminophen 325 mg Tablet 650 MG PO (21:51)
[2021-03-08] VITALS (37 sets, daily range): BP systolic 119–177; BP diastolic 64–115; PULSE 70–123; RESP 11–33; TEMP 36.9; O2SAT 90–98
[2021-03-08] MEDS: ipratropium-albuterol 3 mL Neb INHALATION ×4 (03:23→21:53)
[2021-03-08 03:36] LABS: Basophils % 0.4 %; Eosinophils # 0.2 10^3/uL (0.0-0.8); Eosinophils % 2.3 %; Hematocrit 32.1 % (42.0-52.0); Hemoglobin 10.3 g/dL (11.7-16.6); Lymphocytes # 1.5 10^3/uL (0.8-4.8); Lymphocytes % 16.3 %; Mean Corpuscular HGB Conc 32.1 g/dL (30.0-36.0); Mean Corpuscular Hemoglobin 30.8 pg (28.0-34.0); Mean Corpuscular Volume 96.1 fl (80-94); Mean Platelet Volume 9.4 fL (7.4-10.4); Monocytes # 0.9 10^3/uL (0.2-0.9); Monocytes % 10.4 %; Neutrophils # 6.37 10^3/uL (1.8-7.7); Neutrophils % 70.4 %; Nucleated Red Blood Cells % 0 %; Platelet Count 208 10^3/cmm (130-400); Red Blood Count 3.34 10^6/uL (4.1-5.3); Red Cell Distribution Width 13.3 % (12.1-15.1); White Blood Count 9.1 10^3/uL (4.0-10.0)
[2021-03-08 06:36] LABS: Glucose Point of Care 102 mg/dL (70-110)
--- NOTE | 2021-03-08 08:00 | XR_ITS ---
WS: [id number] XR chest 1V portable [id number] REASON FOR EXAM: rule out pneumonia FINDINGS: Examination is relatively unchanged compared to the previous day. Linear opacities in the lower lung m[place]artney compatible with atelectasis. No definite acute infiltrate. No new findings. XR/XR chest 1V portable [id number] IMPRESSION: Stable chest without definite findings for pneumonitis.
[2021-03-08] MEDS: metoprolol succinate ER (24 HR) 50 mg Tablet PO ×3 (08:57→20:33)
[2021-03-08] MEDS: guaiFENesin 600 mg Tablet PO ×2 (08:57→18:56)
[2021-03-08] MEDS: aspirin 81 mg Chew Tablet PO (08:57)
[2021-03-08] MEDS: digoxin 125 mcg Tablet PO (08:57)
[2021-03-08] MEDS: amoxicillin-clav 875-125 mg Tablet 1 TAB PO (08:57)
[2021-03-08] MEDS: pantoprazole DR 40 mg Tablet PO (08:57)
[2021-03-08] MEDS: fluconazole 100 mg Tablet PO (08:57)
[2021-03-08] MEDS: magnesium oxide 400 mg tablet PO ×2 (08:58→18:55)
[2021-03-08] MEDS: doxycycline 100 mg Tablet PO ×2 (08:58→18:55)
[2021-03-08] MEDS: oxyCODONE IR 30 mg Tablet PO ×2 (09:16→15:06)
--- NOTE | 2021-03-08 09:29 | PC.CHAP ---
Pastoral Care Encounter/Spiritual Assessment Type of Contact [] Declined wind turbine electrical engineer visit [] Patient/Family/Request visit [] Outpatient visit [] Follow-up visit [] Physician referral [] Code/Alert [x] Routine visit [] Staff referral [] Actively dying [] Patient sleeping [] Family support [] [] Out of room [] Palliative care [] [] Receiving care in room [] Pre-surgical visit [] Trauma [] Long length of stay [] ICU visit [] Other: Relational/Emotional Strength [] Patient feels connected with others/family/visitors/staff [] Distress [] Loneliness/isolation [] Abandonment Spirituality of Patient [] Person of Katelyn [] Attends Quaker of their Katelyn [] Believes in Prayer [] Reads Bible or Sabianism materials [] There are Spiritual issues to be addressed Flow Worker Interventions [x] Prayer [x] Active listening [x] Non-anxious presence [x] Spiritual/emotional support [] Crisis/trauma care [] Spiritual counseling [] Bereavement support [] Provided bereavement packet [] Provided Bible/devotional materials [] Provided toy/stuffed animal, coloring book to patient or family member [] Provided Communion [] Anointing/[place] [] Salvation [x] Completed spiritual assessment [] Other: Impact on Illness or Injury [] Angry [] Fearful [] Anxious [] Often cries [] Exhaustion [] Unable to work [] Unable to attend quaker [] Unable to walk/stand [] Unable to read [] Unable to drive [] Unable to eat/drink [] Unable to sleep [] Unable to be with family [] Patient intubated [] Other: Summary patient in a lot of back pain... requested meds.. staff working on helping patient Time spent with patient 5 min
--- NOTE | 2021-03-08 12:01 | P.PN_ITS ---
Subjective Subjective: Interval history: Patient is awake and alert unfortunately back into A. fib, metoprolol dose increased to 50 mg, Cardizem 30 mg every [address] Jurado if he is planning for cardioversion versus ablation EP study Vitals/I&O/Wt Last Vital Signs Temp 98.4 F 03/08/21 08:00 Pulse 122 H 03/08/21 09:03 Resp 16 03/08/21 09:16 BP 160/100 03/08/21 08:05 Pulse Ox 94 03/08/21 09:16 03/07/21 03/08/21 03/08/21 22:59 06:59 14:59 Intake Total 505.625 / 899.042 600 / 1499.042 60 / 60 Output Total 900 / 900 300 / 1200 Balance -394.375 / -0.958 300 / 299.042 60 / 60 Physical Exam Narrative: EXAM NARRATIVE: Resting tremors Awake and alert Not endorsing any chest pain On 3 L nasal cannula Variable S1-S2 tachyarrhythmia Abdomen soft Lower extremity no edema Nonfocal neuro exam Torres catheter draining concentrated urine Urinary Catheter Management^: Torres: Cath Placed During This Visit: yes Reason for Continuing Indwelling Catheter: Accurate Measurement of Urinary Output in Critically Ill Patients Urinary Catheter Date of Insertion: 03/02/21 Urinary Catheter Time of Insertion: 12:45 Data : 03/08/21 03:10 03/07/21 07:04 Micro: Microbiology 03/05/21 16:10 Gram Stain - Final Sputum - Expectorated Sputum Sputum Culture - Preliminary Staphylococcus aureus A&P Assessment and plan (1) Partial bowel obstruction: Status: Resolved (2) On home oxygen therapy: Status: Chronic (3) Low back pain: Status: Acute Qualifiers: Chronicity: acute Back pain laterality: midline Sciatica presence: without sciatica Qualified Code(s): M54.50 - Low back pain, unspecified (4) Hypertensive urgency: Status: Acute (5) Atrial flutter: Status: Acute Qualifiers: Atrial flutter type: unspecified Qualified Code(s): I48.92 - Unspecified atrial flutter (6) Weakness: Status: Acute (7) Essential hypertension: Status: Chronic (8) CKD (chronic kidney disease): Status: Chronic Qualifiers: Chronic kidney disease stage: stage 2 (mild) Qualified Code(s): N18.2 - Chronic kidney disease, stage 2 (mild) (9) COPD (chronic obstructive pulmonary disease): Status: Chronic Qualifiers: COPD type: emphysema Emphysema type: unspecified Qualified Code(s): J43.9 - Emphysema, unspecified (10) A-fib: Status: Chronic Qualifiers: Atrial fibrillation type: unspecified chronic Qualified Code(s): I48.20 - Chronic atrial fibrillation, unspecified (11) Parkinson's disease: Status: Chronic Additional A&P Information Atrial flutter RVR Yesterday his heart rate remained between 50-60 however around 6-7 PM he went into RVR Cardizem 30 mg every 6 hours started today Increase metoprolol dose to 50 mg twice a day Will ask cardiology for cardioversion versus ablation EP study Perinephric stranding related to BPH bladder outlet obstruction Discontinue Augmentin he has finished more than a week and antibiotics Leukocytosis has improved Afebrile Bladder obstruction: Will be discharged with Torres catheter will need outpatient Dr. Perera consult COPD without acute exacerbation currently doing well on 3 L nasal cannula Lower back pain degenerative disease of spine Patient does complain of back pain intermittently, orthopedics recommended outpatient follow-up with Dr. Barba Constipation: Relieved with GoLYTELY Parkinson's with side effects of medications akathisia Currently on hold, tremors improved he was able to sleep on 03/07 he did get Benadryl for his akathisia's DNR/DNI Advance diet to soft mechanical Sputum grew MRSA currently on doxycycline No signs of pneumonia or pneumonitis DVT prophylaxis Lovenox is reluctant to send him to [facility] or any intermediate, she stating that she would like him to come home with home health services at the same time he she states, her hands are full and she will not be able to manage his heart rate and high blood pressure Attestations Medical Necessity Statement*: Will touch base w cardiology for possible cardioversion Time Spent in Patient Care: 16 - 35 minutes Coding Level of Care Code Acute Supply Chain Coordinator for Chg Fwd Diagnoses Partial bowel obstruction K56.600 On home oxygen therapy Z99.81 Low back pain M54.50 Chronicity: acute Back pain laterality: midline Sciatica presence: without sciatica Hypertensive urgency I16.0 Atrial flutter I48.92 Atrial flutter type: unspecified Weakness R53.1 Essential hypertension I10 CKD (chronic kidney disease) N18.2 Chronic kidney disease stage: stage 2 (mild) COPD (chronic obstructive pulmonary disease) J43.9 COPD type: emphysema Emphysema type: unspecified A-fib I48.20 Atrial fibrillation type: unspecified chronic Parkinson's disease G20
[2021-03-08 12:14] LABS: Glucose Point of Care 103 mg/dL (70-110)
[2021-03-08 12:19] LABS: Magnesium 1.7 mg/dL (1.7-2.3)
[2021-03-08] MEDS: lidocaine 5% Patch 2 PATCH TOPICAL (12:37)
[2021-03-08] MEDS: dilTIAZem 30 mg Tablet PO ×2 (12:42→18:58)
[2021-03-08 17:49] LABS: Glucose Point of Care 107 mg/dL (70-110)
[2021-03-08] MEDS: carbidopa-levodopa ER 50-200mg Tablet 1 EACH PO (18:56)
--- NOTE | 2021-03-08 19:35 | P.PN_ITS ---
Subjective Subjective: Interval history: Rate controlled. Medications: Reviewed: Yes Vitals/I&O/Wt Last Vital Signs Temp 98.4 F 03/08/21 08:00 Pulse 122 H 03/08/21 16:44 Resp 17 03/08/21 16:37 BP 150/69 03/08/21 14:00 Pulse Ox 97 03/08/21 16:37 03/08/21 03/08/21 03/08/21 06:59 14:59 22:59 Intake Total 600 / 1499.042 540 / 540 Output Total 300 / 1200 1600 / 1600 Balance 300 / 299.042 540 / 540 -1600 / -1060 Physical Exam Narrative: EXAM NARRATIVE: GENERAL: Patient is confused NECK: No jugular vein distension. HEENT: No cyanosis. No icterus. No pallor. HEART: Irregularly irregular S1 and S2. No murmur, rub or gallop. LUNGS: Clear to auscultate bilaterally. ABDOMEN: Soft nondistended positive bowel sounds CENTRAL NERVOUS SYSTEM: Patient appeared to be confused EXTREMITIES: Lower extremities without edema bilaterally. Urinary Catheter Management^: Torres: Cath Placed During This Visit: yes Reason for Continuing Indwelling Catheter: Accurate Measurement of Urinary Output in Critically Ill Patients Urinary Catheter Date of Insertion: 03/02/21 Urinary Catheter Time of Insertion: 12:45 Data : 03/09/21 04:32 03/09/21 02:37 Micro: Microbiology 03/05/21 16:10 Gram Stain - Final Sputum - Expectorated Sputum Sputum Culture - Final Staphylococcus schleiferi sub 03/04/21 21:09 Urine Culture - Final Urine Catheterized Katie albicans A&P Assessment and plan (1) A-fib: I will increase metoprolol to 50 mg twice a day we will add Cardizem 120 mg in the morning. Continue digoxin. We will continue to monitor. If he does not slows down over next 24 to 48-hour I am planning to proceed with transesophageal echo guided electrical cardioversion after ruling out clot in the left atrial appendage I will add Cardizem 120 mg today will reduce metoprolol to 25 mg in the morning and continue to 50 mg in the evening continue digoxin. We will also give him some IV fluid today if over next 24 hours patient do not slow down plan to cardiovert him after ruling out atrial appendage or atrial clot with transesophageal echocardiogram hopefully tomorrow Appear to be stable from cardiac perspective now continue 120 mg of Cardizem in the morning 25 mg of metoprolol in the morning and 50 mg of metoprolol in the evening along with digoxin. Continue current regimen hopefully once bowels are regulated will feel better. Continue to monitor patient is not on juan diego hina due to intermittent bradycardia pauses. At this point would like to relieve the constipation and distention of abdominal in order to prevent vagal stimulation and significant bradycardia. Rate need to be controlled agree with Cardizem IV drip Continue to manage with parenteral IV juan diego hina until patient can take by mouth Continue current regimen Qualifiers: Atrial fibrillation type: unspecified chronic Qualified Code(s): I48.20 - Chronic atrial fibrillation, unspecified (2) Hypertensive urgency: Continue current regimen appear to be stable Status: Resolved (3) Diastolic heart failure: Continues to be compensated Qualifiers: Heart failure chronicity: chronic Qualified Code(s): I50.32 - Chronic diastolic (congestive) heart failure (4) Coronary artery disease: Appear to be stable from a coronary disease perspective. Qualifiers: Associated angina: without angina Coronary Disease-Associated Artery/Lesion type: [place] artery [place] vs. transplanted heart: [place] heart Qualified Code(s): I25.10 - Atherosclerotic heart disease of [place] coronary artery without angina pectoris Attestations Medical Necessity Statement*: As per medicine Coding Level of Care Code Established Pt Acute Certified Orthoptist for Obie Duked Patient Type Established History Expanded Problem Focused Exam Expanded Problem Focused Medical Decision Making Moderate Complexity Diagnoses A-fib I48.20 Atrial fibrillation type: unspecified chronic Hypertensive urgency I16.0 Diastolic heart failure I50.32 Heart failure chronicity: chronic Coronary artery disease I25.10 Associated angina: without angina Coronary Disease-Associated Artery/Lesion type: [place] artery [place] vs. transplanted heart: [place] heart
--- NOTE | 2021-03-08 20:08 | PC.NURSE ---
pt mostly alert and oriented x 2 today.short episodes of confusion.advanced to mechanical soft diet and tolerated well.also took pills whole with water with out problem.hr did improve after initial dose of cardizem today..however heart did go back up into 110's prior to 2nd dose
[2021-03-08] MEDS: citalopram 20 mg Tablet 40 MG PO (20:32)
[2021-03-08] MEDS: insulin lispro 100 unit/1 mL SUBCUT (21:33)
[2021-03-08 23:03] LABS: Glucose Point of Care 172 mg/dL (70-110)
[2021-03-09] VITALS (19 sets, daily range): BP systolic 107–150; BP diastolic 57–97; PULSE 74–120; RESP 14–25; TEMP 36.5–37; O2SAT 92–96
[2021-03-09] MEDS: enoxaparin 40 mg/0.4 mL Syringe SUBCUT (01:21)
[2021-03-09] MEDS: dilTIAZem 30 mg Tablet PO ×2 (01:22→05:38)
[2021-03-09] MEDS: ipratropium-albuterol 3 mL Neb INHALATION ×2 (02:54→09:14)
[2021-03-09] MEDS: oxyCODONE IR 30 mg Tablet PO (03:35)
[2021-03-09 03:36] LABS: Blood Urea Nitrogen 10 mg/dL (8-23); Calcium 7.8 mg/dL (8.5-10.5); Carbon Dioxide 23 mmol/L (22-29); Chloride 98 mmol/L (98-107); Glucose 88 mg/dL (65-115); Osmolality Calculated 276 mOsm/kg (285-295); Sodium 134 mmol/L (136-145)
[2021-03-09 03:37] LABS: Anion Gap 16.8 (5-19); Potassium 3.8 mmol/L (3.5-5.1)
[2021-03-09 04:55] LABS: Basophils % 0.4 %; Eosinophils # 0.1 10^3/uL (0.0-0.8); Eosinophils % 1.1 %; Hematocrit 30.9 % (42.0-52.0); Hemoglobin 10.1 g/dL (11.7-16.6); Lymphocytes % 17.2 %; Mean Corpuscular HGB Conc 32.7 g/dL (30.0-36.0); Mean Corpuscular Hemoglobin 31.1 pg (28.0-34.0); Mean Corpuscular Volume 95.1 fl (80-94); Mean Platelet Volume 9.3 fL (7.4-10.4); Neutrophils # 8.13 10^3/uL (1.8-7.7); Neutrophils % 71.9 %; Nucleated Red Blood Cells % 0 %; Platelet Count 213 10^3/cmm (130-400); Red Blood Count 3.25 10^6/uL (4.1-5.3); Red Cell Distribution Width 13.3 % (12.1-15.1); White Blood Count 11.3 10^3/uL (4.0-10.0)
[2021-03-09 06:45] LABS: Glucose Point of Care 119 mg/dL (70-110)
[2021-03-09] MEDS: acetaminophen 325 mg Tablet 650 MG PO (07:25)
[2021-03-09] MEDS: sennosides-docusate Tablet 1 TAB PO (09:08)
[2021-03-09] MEDS: guaiFENesin 600 mg Tablet PO (09:08)
[2021-03-09] MEDS: amoxicillin-clav 875-125 mg Tablet 1 TAB PO (09:08)
[2021-03-09] MEDS: doxycycline 100 mg Tablet PO (09:08)
[2021-03-09] MEDS: digoxin 125 mcg Tablet PO (09:08)
[2021-03-09] MEDS: metoprolol succinate ER (24 HR) 50 mg Tablet PO (09:08)
[2021-03-09] MEDS: aspirin 81 mg Chew Tablet PO (09:08)
[2021-03-09] MEDS: fluconazole 100 mg Tablet PO (09:08)
[2021-03-09] MEDS: magnesium oxide 400 mg tablet PO (09:08)
[2021-03-09] MEDS: dilTIAZem ER (24HR) 120 mg Capsule PO (09:09)
[2021-03-09] MEDS: carbidopa-levodopa ER 50-200mg Tablet 1 EACH PO (09:09)
[2021-03-09] MEDS: pantoprazole DR 40 mg Tablet PO (09:09)
[2021-03-09] MEDS: lidocaine 5% Patch 2 PATCH TOPICAL (09:10)
--- NOTE | 2021-03-09 11:18 | PC.SOCIAL ---
Pg 2 IMM. Explained to at bedside. Pg 2 IMM. No questions voiced. Provided a copy. Initialed, dated, & timed a copy & placed in chart.
--- NOTE | 2021-03-09 11:46 | P.DS_ITS ---
Discharge Providers Date of Admission: 02/28/21 18:20 Date of Discharge: March 09, 2021 Attending Provider at Admission: Linda Emerson MD Attending Provider at Discharge: Yamilex Washburn MD Primary Care Provider: Janis Prakash DO Diagnoses at Discharge Discharge Diagnosis (1) A-fib: Status: Chronic Permanent problem details: Chronic, not on anticoagulation due to anemia and hematuria Qualifiers: Atrial fibrillation type: unspecified chronic Qualified Code(s): I48.20 - Chronic atrial fibrillation, unspecified (2) Hypertensive urgency: Status: Acute (3) Diastolic heart failure: Status: Chronic Qualifiers: Heart failure chronicity: chronic Qualified Code(s): I50.32 - Chronic diastolic (congestive) heart failure (4) Coronary artery disease: Status: Chronic Qualifiers: Associated angina: without angina Coronary Disease-Associated Artery/Lesion type: augustine artery [place] vs. transplanted heart: augustine heart Qualified Code(s): I25.10 - Atherosclerotic heart disease of augustine coronary artery without angina pectoris Reason for Visit Reason for Visit: HIGH BP/CONSTIPATED Hospital Course Hospital Course History of Present Illness by Dr Idania De La O Jm is a 80 year old male who presented to the emergency room chief complaint of not feeling well, hypertension not responding to as needed antihypertensive medications and back pain not controlled with usual pain medications. He lives at home with his and history is obtained from a combination of both of them. He has been having some chest congestion. He saw his primary care provider about a week ago and has been treated with Augmentin and prednisone for that. He has chronic COPD. No report of any fevers. He is Covid vaccinated and has not previously had Covid. He has a history of coronary artery disease with prior stents, atrial fibrillation/flutter previously described as paroxysmal but more recently noted to be chronic and continuous. He had been on amiodarone but this was stopped during the summer as not providing any benefit to the patient. He had also previously been on scheduled metoprolol but due to low blood pressures and bradycardia intermittently, particularly with increasing amount of pain medication, metoprolol has been changed to as needed only as has hydralazine. He had a cardiac rehabilitation specialist for 7 days over the summer with heart rates ranging from 44-110. Since the metoprolol has been changed to as needed, heart rate has been staying rather elevated per the from 110s to 120s. Last week Dr. Prakash started him on digoxin 0.125 mg daily. He had a couple of days in which his heart rate was in the 80s. Today his noticed that his blood pressure was significantly elevated. She gave him 1 dose of metoprolol 50 mg and 1 dose of hydralazine 25 mg without any improvement in the blood pressure. Heart rate was also noted to be elevated without any significant change after medications either. He was complaining of severe low back pain that was not relieved with usual oxycodone and Zanaflex. Denies recent fall or other type of injury. Pain is located in the center of the back without any radiation down the legs. No change in bowel or bladder function. He has had some nausea and a couple of episodes of vomiting since arrival to the emergency room. On arrival blood pressures were 200s over 130s initially. He has received several doses of labetalol, push diltiazem and ultimately a Cardizem drip. He has been tachycardic with heart rate staying a round 115-118. Noted to be in atrial fibrillation/atrial flutter. Denies any chest pain. Denies current difficulty breathing or increase in chest congestion compared to previous. Digoxin level was checked and was low at 0.3. Pressures have improved with treatment administered thus far though he continues to be tachycardic and nauseated. 2-hour troponin did not show significant delta. He is being admitted for further care Hosp Course Mr. Oneal was admitted for management and evaluation of hypertensive urgency, A. fib RVR, electrolyte imbalance,. He spent first 48 hours in the ICU, his A. fib RVR was very difficult to control, with digoxin, metoprolol and Cardizem his heart rate was consistently above 110, patient has not tolerated amiodarone in the past, as per cardiology note sinus pauses were noted and that is why we were being cautious using amiodarone during this hospitalization. Digoxin level unremarkable. Cardiology was consulted who recommended 120 mg of Cardizem and metoprolol at night. Rapid response was called for hypotension and bradycardia, he was given atropine and glucagon. His heart rate and blood pressure recovered, he required Levophed for 4 hours and CSU there was no ICU bed available that night. No chest compressions or CODE BLUE. He was monitored off AV juan diego blocking agents which resulted in A. fib RVR, this time we use Cardizem drip to control his heart rate, as soon as metoprolol was added his heart rate improved from 120s to 60s. Cardiology was being updated on daily basis. Dr. Jurado was planning for cardioversion in case he did not improve on p.o. medications. However with use of metoprolol 50 mg twice a day and Cardizem 120 mg daily his heart rate was ranging between 80 to 90s. His blood pressure improved as well. Please note, he had leukocytosis which prompted further work-up abdominal imaging revealed bowel obstruction which resolved spontaneously with conservative management, NG tube was placed which put out 1600 cc, patient pulled his NG tube next day, he was tolerating his diet, no recurrence of nausea, vomiting or abdominal pain. Dr. Tse general surgery was consulted who recommended conservative management. There was also perinephric stranding for which she required IV Zosyn. Once his leukocytosis improved his Zosyn was deescalated to Augmentin. His sputum culture grew MRSA, repeat x-ray did not show any signs of consolidation or pneumonitis. However he was covered with doxycycline. Patient did develop akathisia's during his hospitalization which improved with use of propanolol, Benadryl and d iscontinuing levodopa/carbidopa for about 72 hours. is her DPOA who has a living will as well, she told me about the goals of care, patient is DNR/DNI. Secondary to Parkinson's and deteriorating functional status anticoagulation for Francisco. lauren was discontinued. He was on Coumadin at home which has been discontinued. Family does not want him to go to any residential, is agreeable with home health services and outpatient follow-up with Dr. Perera for his BPH. He will be discharged home with Torres catheter, it was very difficult to place a Torres catheter for his urinary retention. Traumatic hematuria improved spontaneously. Hemoglobin remained stable. He will get 7 day rx of fluconazole for yeast in urine. Physical Exam Narrative: EXAM NARRATIVE: Resting tremors Awake and alert Not endorsing any chest pain, baseline o2 requirement On 3 L nasal cannula Variable S1-S2 tachyarrhythmia Abdomen soft Lower extremity no edema Nonfocal neuro exam Torres catheter draining concentrated urine Urinary Catheter Management^: Torres: Cath Placed During This Visit: yes Reason for Continuing Indwelling Catheter: Accurate Measurement of Urinary Output in Critically Ill Patients Urinary Catheter Date of Insertion: 03/02/21 Urinary Catheter Time of Insertion: 12:45 Discharge Data Data Completed and Pending: Completed Studies During Hospitalization Category Date Time Status CT angio chest PE protcl [id number] Urge nt Cat Scan 03/01/21 17:[address] angio chest w abd pel w con Stat Cat Scan 03/04/21 14:[address] head wo con* 7 0450 Urgent Cat Scan 02/27/21 19:[address] lumbar spine w o con* [id number] Urgen t Cat Scan 03/02/21 07:43 Completed CXRP [XR chest 1V portable 25550] S tat Exams 03/05/21 14:18 Completed XR KUB portable 7 4018 Urgent Exams 02/27/21 18:30 Completed XR chest 1V suraj ble [id number] Routine Exams 03/06/21 08:54 Completed XR chest 1V suraj ble [id number] Routine Exams 03/08/21 08:00 Completed XR chest 1V suraj ble [id number] Stat Exams 03/03/21 16:41 Completed XR chest 1V suraj ble [id number] Urgent Exams 02/27/21 18:30 Completed MR lumbar spine w o con* [id number] Routi ne MRI 03/03/21 09:38 Completed CV. echo limited [id number] Urgent Ultrasound 03/04/21 14:43 Completed CV. echo wo/w con trast [id number] Urgent Ultrasound 02/28/21 08:38 Completed Pending at discharge Category Date Time Status Blood Culture Sta t Lab 03/04/21 14:34 Results Labs from last 24 hours 03/09/21 03/09/21 03/09/21 06:42 04:32 02:37 WBC 11.3 H Corrected WBC RBC 3.25 L Hgb 10.1 L Hct 30.9 L MCV 95.1 H MCH 31.1 MCHC 32.7 RDW 13.3 Plt Count 213 MPV 9.3 Gran % Neut % (Auto) 71.9 Lymph % (Auto) 17.2 Avery % (Auto) 9.0 Eos % (Auto) 1.1 Baso % (Auto) 0.4 Neut # (Auto) 8.13 H Lymph # (Auto) 2.0 Avery # (Auto) 1.0 H Eos # (Auto) 0.1 Baso # (Auto) 0.0 Absolute Gran (aut o) Nucleated RBC % (a uto) 0 Nucleated RBCs # 0.0 Sodium 134 L Potassium 3.8 Chloride 98 Carbon Dioxide 23 Anion Gap 16.8 BUN 10 Creatinine 0.5 L GFR Calculation Not Reportable Glucose 88 POC Glucose 119 H Calculated Osmolal ity 276 L Calcium 7.8 L Magnesium 03/09/21 03/08/21 03/08/21 02:37 21:27 17:29 WBC Cancelled Corrected WBC Cancelled RBC Cancelled Hgb Cancelled Hct Cancelled MCV Cancelled MCH Cancelled MCHC Cancelled RDW Cancelled Plt Count Cancelled MPV Cancelled Gran % Cancelled Neut % (Auto) Cancelled Lymph % (Auto) Cancelled Avery % (Auto) Cancelled Eos % (Auto) Cancelled Baso % (Auto) Cancelled Neut # (Auto) Cancelled Lymph # (Auto) Cancelled Avery # (Auto) Cancelled Eos # (Auto) Cancelled Baso # (Auto) Cancelled Absolute Gran (aut o) Cancelled Nucleated RBC % (a uto) Cancelled Nucleated RBCs # Cancelled Sodium Potassium Chloride Carbon Dioxide Anion Gap BUN Creatinine GFR Calculation Glucose POC Glucose 172 H 107 Calculated Osmolal ity Calcium Magnesium 03/08/21 03/08/21 12:11 03:10 WBC Corrected WBC RBC Hgb Hct MCV MCH MCHC RDW Plt Count MPV Gran % Neut % (Auto) Lymph % (Auto) Avery % (Auto) Eos % (Auto) Baso % (Auto) Neut # (Auto) Lymph # (Auto) Avery # (Auto) Eos # (Auto) Baso # (Auto) Absolute Gran (aut o) Nucleated RBC % (a uto) Nucleated RBCs # Sodium Potassium Chloride Carbon Dioxide Anion Gap BUN Creatinine GFR Calculation Glucose POC Glucose 103 Calculated Osmolal ity Calcium Magnesium 1.7 Vitals: Last Vital Signs Temp 98.6 F 03/09/21 04:00 Pulse 90 03/09/21 09:19 Resp 18 03/09/21 09:19 BP 107/57 03/09/21 04:00 Pulse Ox 95 03/09/21 09:19 Discharge Plan Discharge Patient Disposition: Home Condition: Stable Prescriptions: New fluconazole 100 mg Tablet 100 mg PO DAILY Qty: 5 RF: 0 doxycycline monohydrate 100 mg Tablet 100 mg PO BID Qty: 10 RF: 0 diltiazem HCl 120 mg Capsule,Extended Release 24hr 120 mg PO DAILY Qty: 30 RF: 2 amoxicillin-pot clavulanate 875-125 mg Tablet 1 tab PO BID Qty: 6 RF: 0 metoprolol succinate 50 mg Tablet Extended Release 24 Hr 50 mg PO BID@0900,2100 Qty: 60 RF: 2 Stool Softener-Laxative 8.6-50 mg Tablet 1 tab PO BID Qty: 60 RF: 0 tamsulosin 0.4 mg capsule 0.4 mg PO DAILY Qty: 30 RF: 0 Continued albuterol sulfate 2.5 mg /3 mL (0.083 %) Solution For Nebulization 2.5 mg INHALATION Q4H PRN (Reason: Shortness Of Breath) RF: 0 alprazolam 0.5 mg Tablet 0.5 mg PO TID PRN (Reason: Anxiety) RF: 0 lidocaine [Lidocaine Pain Relief] 4 % Adhesive Patch,Medicated 1 patch TOPICAL DAILY RF: 0 tizanidine 2 mg Tablet 2 mg PO TID RF: 0 ondansetron 8 mg Tablet,Disintegrating 8 mg PO Q8H PRN (Reason: Nausea And Vomiting) RF: 0 nitroglycerin 0.4 mg Tablet, Sublingual 0.4 mg SUBLINGUAL Q5M PRN (Reason: Chest Pain) RF: 0 aspirin 81 mg Tablet,Chewable 81 mg PO DAILY RF: 0 levalbuterol tartrate 45 mcg/actuation Hfa Aerosol Inhaler 2 inh INHALATION Q6H PRN (Reason: Shortness Of Breath) RF: 0 ipratropium-albuterol 0.5 mg-3 mg(2.5 mg base)/3 mL Solution For Nebulization 3 ml inhalation Q6H.RESPIRATORY Qty: 30 RF: 0 carbidopa-levodopa 50-200 mg Tablet Extended Release 1 ea PO BID Qty: 30 RF: 0 oxycodone 30 mg Tablet 30 mg PO Q6H PRN (Reason: Pain) Qty: 10 RF: 0 citalopram 40 mg tablet 20 mg PO BEDTIME RF: 0 magnesium oxide 250 mg magnesium tablet 500 mg PO BID RF: 0 prednisone 20 mg tablet 20 mg PO DAILY RF: 0 digoxin 125 mcg (0.125 mg) tablet 125 mcg PO DAILY RF: 0 hydralazine 50 mg tablet 25 mg PO .prn Qty: 20 RF: 0 Discontinued metoprolol tartrate 50 mg tablet 75 mg PO PRN PRN (Reason: Hypertension) RF: 0 ascorbic acid (vitamin C) [Vitamin C] 500 mg Tablet 500 mg PO DAILY RF: 0 cholecalciferol (vitamin D3) [Vitamin D3] 25 mcg (1,000 unit) Tablet 25 mcg PO DAILY RF: 0 amoxicillin-pot clavulanate 500-125 mg tablet 1 tab PO BID RF: 0 Discharge Orders: Discharge Order (Routine); Ordered 03/09/21 Ordered By: Yamilex Washburn Referrals: Kareem Perera MD [Physician] - 4-7 days Janis Prakash DO [Primary Care Provider] - 03/13/21 1:40 pm (You have a hospital followup with Gypsy Parrish NP at [facility] on March 13 at 1:40pm (Dr. Prakash is booked) ) [facility], [Staff Physician] - ([facility] has a ccepted you to their services. They will be contacting you about a time to admit you to their services. If you have any questions please call them at [phone].) Discharge Diet: Soft Mechanical Discharge Activity: Use walker/crutches as instructed and As per PT/OT instructions Patient Instructions: Metoprolol (By mouth) (Lopressor, Toprol XL), Diltiazem (By mouth) (Cardizem, Cardizem CD, Cardizem LA, Cardizem SR), Doxycycline (By mouth) (Acticlate, Adoxa, Avidoxy, Monodox, Doryx), Amoxicillin/Clavulanate Potassium (By mouth) (Augmentin, Augmentin..., Fluconazole (By mouth) (Diflucan), Laxative, Stool Softeners (By mouth) (Doculax, Colace, Colace Clear, DSS), Opioid Safety Discharge Attestations Time Spent in Discharge Care*: less than 30 min Status at Discharge: Cognitive status at discharge: cognitively intact , Behavioral status at discharge: cooperative , Quality Metrics Clinical Quality Measures During this hospital stay, did patient experience: None Coding Level of Care Code Acute Chg FW DC note Diagnoses A-fib I48.20 Atrial fibrillation type: unspecified chronic Hypertensive urgency I16.0 Diastolic heart failure I50.32 Heart failure chronicity: chronic Coronary artery disease I25.10 Associated angina: without angina Coronary Disease-Associated Artery/Lesion type: augustine artery [place] vs. transplanted heart: augustine heart
--- NOTE | 2021-03-09 13:19 | PC.NURSE ---
Discharged patient.... Patient signature form signed. medications and activity reviewed with patient and caregiver. meds finalized and sent to pharmacy. assisted patient out to their vehicle via wheelchair. IV removed. Orellana catheter lef tin place per Dr hogue orders. followup with harriet scheduled.
== END 2021-03-09 13:26 | disposition home health service (06) | DRG 309 ==
LOC: ER 21:08 → ICU 23:49 → CSU 03-03 19:49
PROVIDERS: Internal Medicine; Admitting Provider Hospitalist; Emergency Provider Emergency Medicine; PCP Family Medicine; Visit Provider Internal Medicine
DX: I48.20 Chronic atrial fibrillation, unspecified (principal); I50.32 Chronic diastolic (congestive) heart failure; N13.8 Other obstructive and reflux uropathy; G90.3 Multi-system degeneration of the autonomic nervous system; J96.11 Chronic respiratory failure with hypoxia; I13.0 Hypertensive heart and chronic kidney disease with heart failure and stage 1 through stage 4 chronic kidney disease, or unspecified chronic kidney disease; I16.0 Hypertensive urgency; E11.22 Type 2 diabetes mellitus with diabetic chronic kidney disease; N18.2 Chronic kidney disease, stage 2 (mild); N40.1 Benign prostatic hyperplasia with lower urinary tract symptoms; G89.29 Other chronic pain; J43.9 Emphysema, unspecified; Z99.81 Dependence on supplemental oxygen; I25.10 Atherosclerotic heart disease of native coronary artery without angina pectoris; Z95.5 Presence of coronary angioplasty implant and graft; G93.89 Other specified disorders of brain; K21.9 Gastro-esophageal reflux disease without esophagitis; E03.9 Hypothyroidism, unspecified; G20 Parkinson's disease; Z85.46 Personal history of malignant neoplasm of prostate; Z87.440 Personal history of urinary (tract) infections; G47.30 Sleep apnea, unspecified; Z87.891 Personal history of nicotine dependence; M48.061 Spinal stenosis, lumbar region without neurogenic claudication; Z96.653 Presence of artificial knee joint, bilateral; Z79.891 Long term (current) use of opiate analgesic; Z79.82 Long term (current) use of aspirin; Z79.51 Long term (current) use of inhaled steroids; Z66 Do not resuscitate; G25.71 Drug induced akathisia; B95.62 Methicillin resistant Staphylococcus aureus infection as the cause of diseases classified elsewhere; G25.81 Restless legs syndrome; E86.0 Dehydration; K80.20 Calculus of gallbladder without cholecystitis without obstruction; K57.30 Diverticulosis of large intestine without perforation or abscess without bleeding; I95.9 Hypotension, unspecified; K59.00 Constipation, unspecified
CPT/HCPCS: 36415; 36416; 36600; 51702; 70450; 71045; 71275; 72131; 72148; 74018; 74177; 80048; 80051; 80053; 80061; 80162; 80202; 81001; 82330; 82550; 82805; 82962; 83036; 83605; 83735; 83880; 84100; 84145; 84443; 84484; 85025; 85378; 85610; 87040; 87070; 87077; 87086; 87106; 87186; 87205; 87426; 87641; 93005; 93308; 94640; 94799; 96365; 96366; 96372; 96375; 99291; C8929; G0378; J0171; J0456; J0461; J1160; J1200; J1450; J1610; J1630; J1650; J1815; J2270; J2405; J2543; J3370; J3490; J7030; J7050; Q0162; Q9956; Q9967

== ENCOUNTER 2021-04-28 13:39 | Emergency (ER) | payer MEDICARE, OTHER, SELFPAY ==
[2021-04-28 14:30] VITALS: BMI 25.0
[2021-04-28 14:36] VITALS: BP 134/68; PULSE 69; RESP 18; O2SAT 92
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
--- NOTE | 2021-04-28 14:38 | XR_ITS ---
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 Mildly tortuous calcified thoracic aorta without aneurysmal dilatation. Normal heart size. Calcified granulomatous changes in both hemithoraces. Reticular interstitial lung opacities predominantly in the mid and lower left lung field. These findi ngs appear to be chronic residuals of the infiltrates demonstrated on CT of the chest 03/04/2021. 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 XR/XR chest 1V portable [id number] IMPRESSION: Presumed chronic interstitial lung opacities. These findings would make it diff icult to identify acute changes. As clinically warranted follow-up chest x-ray recommended.
[2021-04-28 15:38] LABS: ABG PCO2 42.6 mmHg (35-45); ABG PH Result 7.44 (7.35-7.45); Arterial Blood Gas Hematocrit 32.3 % (42-52); Base Excess ABG 4.4 mmol/L (-2.0-2.0); Blood Gas Allen Test Pos; Blood Gas Operator Identificat CAK; Blood Gas Sample Site Radial, left; Blood Gas Sample Type Arterial; Oxygen Device NC; PO2 ABG 79.5 mmHg (80.0-100.0)
--- NOTE | 2021-04-28 16:38 | ECG_ITS ---
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 Measurements Intervals [place] Rate: 68 P: -60 CO: 303 QRS: 3 QRSD: 108 T: 90 QT: 380 QTc: 407 Interpretive Statements ECTOPIC ATRIAL RHYTHM WITH FIRST DEGREE AV BLOCK WITH FREQUENT SUPRAVENTRICULAR PREMATURE COMPLEXES NONSPECIFIC ST & T-WAVE ABNORMALITY Compared to ECG 03/05/2021 16:01:25 Ectopic atrial rhythm now present First degree AV block now present T-wave abnormality now present Myocardial infarct finding no longer present Electronically Signed On 04-29-2021 0:46:05 SILK SCREEN PRINTER MACHINE by Edward House M.D. [email or web address]/[id number] f
[2021-04-28 17:19] LABS: Troponin(5th) Baseline 69 ng/L (0-15)
[2021-04-28 18:20] LABS: Basophils % 0.2 %; Eosinophils % 0.3 %; Hematocrit 37.8 % (42.0-52.0); Hemoglobin 11.3 g/dL (11.7-16.6); Lymphocytes # 1.2 10^3/uL (0.8-4.8); Lymphocytes % 20.2 %; Mean Corpuscular HGB Conc 29.9 g/dL (30.0-36.0); Mean Corpuscular Hemoglobin 29.8 pg (28.0-34.0); Mean Corpuscular Volume 99.7 fl (80-94); Mean Platelet Volume 9.7 fL (7.4-10.4); Monocytes # 0.5 10^3/uL (0.2-0.9); Monocytes % 9.4 %; Neutrophils # 3.96 10^3/uL (1.8-7.7); Neutrophils % 69.2 %; Nucleated Red Blood Cells % 0 %; Platelet Count 152 10^3/cmm (130-400); Red Blood Count 3.79 10^6/uL (4.1-5.3); Red Cell Distribution Width 14.6 % (12.1-15.1); White Blood Count 5.7 10^3/uL (4.0-10.0)
--- NOTE | 2021-04-28 18:42 | ECG_ITS ---
[facility] Test Date: 2021-04-28 Pat Name: Salas Oneal Department: Room: Gender: Male Lab Nurse: : 1940 Requested By: Leo Soriano Order Number: [id number] Nguyễn MD: Edward House M.D. Measurements Intervals [place] Rate: 82 P: 37 DE: 149 QRS: 10 QRSD: 109 T: 140 QT: 395 QTc: 462 Interpretive Statements SINUS RHYTHM WITH FREQUENT SUPRAVENTRICULAR PREMATURE COMPLEXES MODERATE ST DEPRESSION [0.05+ mV ST DEPRESSION] ABNORMAL QRS-T ANGLE [QRS-T AXIS DIFFERENCE > 60] Compared to ECG 04/28/2021 16:41:34 ST (T wave) deviation now present Ectopic atrial rhythm no longer present First degree AV block no longer present T-wave abnormality no longer present Electronically Signed On 04-29-2021 0:45:05 WICKER MOLDED CANDLES by Edward House M.D. [id number] f
[2021-04-28 19:06] LABS: NT Pro B Type Natriuretic Pept 4355 pg/mL (0-450); Procalcitonin 0.08 ng/mL (0-0.5); Thyroid Stimulating Hormone 1.27 uIU/mL (0.27-4.20)
[2021-04-28 19:17] LABS: Alanine Aminotransferase < 5 U/L (0-41); Alkaline Phosphatase 97 IU/L (40-130); Anion Gap 14.4 (5-19); Blood Urea Nitrogen 20 mg/dL (8-23); Carbon Dioxide 24 mmol/L (22-29); Globulin 2.9 g/dL (1.3-4.6); Glucose 102 mg/dL (65-115); Potassium 4.4 mmol/L (3.5-5.1); Total Bilirubin 0.4 mg/dL (0.15-1.2)
[2021-04-28 19:20] LABS: Aspartate Amino Transferase 43 U/L (0-40); C Reactive Protein 100.4 mg/L (0.0-4.9); Calcium 7.9 mg/dL (8.5-10.5); Chloride 94 mmol/L (98-107); Magnesium 3.1 mg/dL (1.7-2.3); Osmolality Calculated 269 mOsm/kg (285-295); Sodium 128 mmol/L (136-145)
[2021-04-28 19:34] LABS: Albumin Level 3.2 g/dL (3.5-5.2); Total Protein 6.1 g/dL (6.6-8.7)
[2021-04-28 20:03] LABS: Troponin 5 2HR 67.46 ng/L (0-15)
[2021-04-28 20:06] LABS: Troponin 5 2HR Delta -1.54 ABS# (0-10)
[2021-04-28 20:35] LABS: Adenovirus Not Detected (NOT DETECT); Chlamydia Pneumoniae Not Detected (NOT DETECT); Coronavirus 229E,HKU1,NL63,OC4 Not Detected (NOT DETECT); Human Metapneumovirus Not Detected (NOT DETECT); Human Rhinovirus/Enterovirus Not Detected (NOT DETECT); Influenza A Not Detected (NOT DETECT); Influenza A H1 Not Detected (NOT DETECT); Influenza A H1-2009 Not Detected (NOT DETECT); Influenza A H3 Not Detected (NOT DETECT); Influenza B Not Detected (NOT DETECT); Mycoplasma Pneumoniae Not Detected (NOT DETECT); Parainfluenza Virus Type 1 Not Detected (NOT DETECT); Parainfluenza Virus Type 2 Not Detected (NOT DETECT); Parainfluenza Virus Type 3 Not Detected (NOT DETECT); Parainfluenza Virus Type 4 Not Detected (NOT DETECT); Respiratory Syncytial Virus A Not Detected (NOT DETECT); Respiratory Syncytial Virus B Not Detected (NOT DETECT); SARS-COV-2 Detected (NOT DETECT)
[2021-04-28 21:10] LABS: Urine Appearance Clear (CLEAR); Urine Color Yellow (Yellow)
[2021-04-28 21:11] LABS: Add Urine Microscopic? YES; Bilirubin Urine Neg (Negative); Blood Urine Neg (Negative); Glucose Urine UA Norm (Normal); Ketones Urine 1+ (Negative); Leukocyte Esterase Urine Negative (Negative); Nitrate Urine Negative (Negative); Protein Urine 1+ (Negative); Sulfosalicylic Acid Urine Negative (Negative); Urobilinogen Urine Norm (Negative); pH Urine 9 (5-7)
[2021-04-28 21:13] LABS: Bacteria Urine TRACE /hpf; Other Sediment, Urine BUD YEAST W/HYPHAE; RBC Urine 0-4 /hpf (0-2); WBC Urine 0-4 /hpf (0-5)
[2021-04-28 21:14] LABS: Add Urine Culture? Yes; Hyaline Casts Urine 0-4 /lpf
[2021-04-28 21:29] VITALS: BP 170/94; PULSE 105; RESP 24; O2SAT 93
[2021-04-28 22:03] VITALS: O2SAT 87; O2SAT 91; O2SAT 93
--- NOTE | 2021-04-28 22:16 | PC.NURSE ---
Pt. is angry because he has not ate and has not drank and states that he is pissed off. I have got the patient food and some water. Pt. is being assessed for home O2.
--- NOTE | 2021-04-28 23:23 | PC.NURSE ---
pt. being discharged home, but does not walk and is dependant on O2.
--- NOTE | 2021-04-29 00:02 | PC.NURSE ---
Trying to arrange ride home for patient.
--- NOTE | 2021-04-29 01:02 | PC.NURSE ---
Pt. is now very pleasant and says anthony for taking care of him, he is ready to go home.
== END 2021-04-29 02:30 | disposition home or self-care (01) ==
PROVIDERS: Emergency Provider Emergency Medicine; PCP Family Medicine
DX: U07.1 COVID-19 (principal); R79.89 Other specified abnormal findings of blood chemistry; D53.9 Nutritional anemia, unspecified; E86.0 Dehydration; Z79.82 Long term (current) use of aspirin; J44.9 Chronic obstructive pulmonary disease, unspecified; Z99.81 Dependence on supplemental oxygen; I25.10 Atherosclerotic heart disease of native coronary artery without angina pectoris; E11.9 Type 2 diabetes mellitus without complications; I11.0 Hypertensive heart disease with heart failure; I50.30 Unspecified diastolic (congestive) heart failure; G20 Parkinson's disease; Z85.46 Personal history of malignant neoplasm of prostate; Z87.891 Personal history of nicotine dependence
CPT/HCPCS: 36415; 36600; 71045; 80053; 81001; 82803; 83735; 83880; 84145; 84443; 84484; 85025; 86140; 87040; 87086; 87635; 93005; 99284